=== PATIENT | female | born 1940 | race Caucasian/White ===

== ENCOUNTER 2021-06-05 16:02 | Emergency (ER) | payer MEDICARE, SELFPAY ==
--- NOTE | ~2021-06-05 | CT_ITS ---
EXAMINATION: CT abdomen pelvis wo con DATE: 06/05/2021 19:24 INDICATION: Right lower quadrant abdominal pain for one week. TECHNIQUE: Computed tomography (CT) of the abdomen and pelvis was performed without intravenous contr ast. Automated exposure control and iterative reconstruction technique were employed. Exam dose: 267 .91 mGy-cm total exam DLP. COMPARISON: None. FINDINGS: There is patchy predominantly peripheral and basilar right lower lobe infiltrate and septal soft tissue thickening. Consider pneumonia, aspiration pneumonitis. Normal heart size. No pericardial or pleural effusion. Small sliding hiatal hernia There is at least one 4 mm gallstone dependent aspect of the gallbladder. No hepatic, splenic, pancreatic, and adrenal space-occupying mass lesion. No bile duct or pancreatic duct dilatation. 4.4 cm upper pole left renal cyst. No other renal mass lesion or urinary tract calculus or hydrourete ronephrosis. The urinary bladder is unremarkable. Retroverted uterus. There is extensive arterial calcification particularly abdominal aorta, celiac, superior mesenteric a nd renal arteries. There is an endovascular stent of the distal abdominal aorta. No abdominal aortic aneurysm. No intraperitoneal or retroperitoneal or pelvic mass lesion or adenopathy or ascites. There is prominent soft tissue thickening and irregularity of the ascending colon suggesting ascendin g colon carcinoma. There is pericolic fat stranding in this area. Lymphadenopathy in the right lower quadrant, including a node measuring up to 13 x 16.7 mm, likely due to metastatic colon adenocarcinom a. Diverticulitis is considered much less likely. Further evaluation by barium enema or colonoscopy i s recommended. There are numerous diverticula of left and right colon. No bowel obstruction or intraperitoneal free air is detected. Diffuse osteopenia. There is severe degenerative disc disease and grade 1 anterolisthesis at L4-5. There is prominent deg enerative change at the apophyseal joints of the lower lumbar and lumbosacral area. Bilateral hip arthritis. IMPRESSION: Prominent irregular soft tissue thickening of the ascending colon suggesting ascending c olon carcinoma, with pericolic fat stranding and up to 13 x 16.7 mm right lower quadrant lymph nodes, suggesting local metastatic disease. Diverticulosis of left and right colon Cholelithiasis Right lower lobe peripheral and basilar infiltrate; consider pneumonia, aspiration pneumonitis 4.4 cm upper pole left renal cyst Endovascular stent of distal abdominal aorta; extensive atherosclerotic calcification of the abdomina l aorta and branches Reviewed, dictated and finalized at [facility]. Reviewed, dictated and finalized at [facility]. IMPRESSION: Prominent irregular soft tissue thickening of the ascending colon suggesting ascending colon carcinoma, with pericolic fat stranding and up to 13 x 16.7 mm right lower quadrant lymph nodes, suggesting local metastatic diseas e. Diverticulosis of left and right colon Cholelithiasis Right lower lobe peripheral and basilar infiltrate; consider pneumonia, aspirat ion pneumonitis 4.4 cm upper pole left renal cyst Endovascular stent of distal abdominal aorta; extensive atherosclerotic calcifi cation of the abdominal aorta and branches
[2021-06-05 16:08] VITALS: BP 130/54; PULSE 71; RESP 16; TEMP 36.8; O2SAT 99
[2021-06-05 16:31] LABS: Alanine Aminotransferase 16 U/L (4-35); Albumin Level 4.2 g/dL (3.5-5.1); Alkaline Phosphatase 85 U/L (38-126); Anion Gap 13 mmol/L (8-16); Aspartate Amino Transferase 20 U/L (14-36); Basophils Absolute Auto 0.1 K/mm3 (0.0-0.1); Basophils Percent Auto 0.8 % (0.2-1.2); Bilirubin,Total 0.2 mg/dL (0.2-1.3); Blood Urea Nitrogen 14 mg/dL (7-17); Calcium 9.3 mg/dL (8.4-10.2); Carbon Dioxide 24 mmol/L (22-30); Chloride 102 mmol/L (98-107); Eosinophils Absolute Auto 0.6 K/mm3 (0-0.3); Eosinophils Percent Auto 7.4 % (0-4.4); Estimated CRCL calculation 38 ml/min; Estimated Glomerular Filt Rate 53; Glucose 250 mg/dL (65-110); Hematocrit 34.1 % (37.0-47.0); Immature Granulocyte Absolute 0.01 K/mm3 (0.00-0.031); Immature Granulocyte Percent A 0.1 % (0-0.5); Lipase 333 U/L (23-300); Lymphocytes Absolute Auto 1.97 K/mm3 (0.9-3.2); Lymphocytes Percent Auto 26.2 % (18.3-44.2); Mean Corpuscular HGB Conc 32.3 g/dl (32-36); Mean Corpuscular Hemoglobin 32.7 pg (26-34); Mean Corpuscular Volume 101.5 fl (80-100); Mean Platelet Volume 9.2 fl (7.4-10.4); Monocytes Absolute Auto 0.4 K/mm3 (0.1-0.6); Monocytes Percent Auto 5.3 % (2.6-8.5); Neutrophils Absolute Auto 4.5 K/mm3 (1.3-6.7); Neutrophils Percent Auto 60.2 % (45.5-73.1); Platelet Count Result 353 k/mm3 (150-375); Potassium 4.3 mmol/L (3.4-5.0); Red Blood Count 3.36 M/mm3 (4.2-5.4); Red Cell Distribution Width 14.5 % (11.5-14.5); Sodium 139 mmol/L (137-145); White Blood Count 7.5 K/mm3 (4.5-10.0)
[2021-06-05 16:39] LABS: Add Urine Microscopic? YES; Appearance Urine Clear (Clear); Bacteria Urine Trace /hpf; Bilirubin Urine Negative (Negative); Blood Urine Negative (Negative); Color Urine Yellow (Yellow); Glucose Urine UA Negative (Negative); Ketones Urine Negative (Negative); Leukocyte Esterase Ur 1+ LEU/UL (Negative); Mucus Urine Rare /lpf; Nitrate Urine Negative (Negative); Protein Urine Negative (Negative); RBC Urine 0-2 /hpf (0-2); Specific Grav Ur 1.008 (1.001-1.035); Squamous Epithelial Cell Urine Few /hpf (Few); Urobilinogen Urine Negative mg/dL (<2.0)
[2021-06-05 19:10] VITALS: BP 137/72; PULSE 91; RESP 20; O2SAT 100
--- NOTE | 2021-06-05 20:34 | ED.ABDPAIN ---
HPI - Abdominal Pain General Chief Complaint: Abdominal Pain Stated Complaint: RLQ Abd Pain Time Seen by Provider: 06/05/21 18:56 Source: patient and family Mode of arrival: ambulatory Limitations: no limitations History of Present Illness HPI narrative: 80-year-old female History of hypertension, type 2 diabetes on Metformin Here for abdominal pain Patient complains of about a 10-day history of right sided mid abdominal pain Patient states there is discomfort there at all times but that sometimes seems to grab and be briefly worse She has not noticed anything particular which aggravates or relieves her symptoms She is having normal bowel movements, no vomiting, appetite is okay, no fevers She does not have any urinary symptoms either Related Data Home Medications Medication Instructions Recorded Confirmed aspirin 81 mg PO DAILY 06/20/20 06/27/20 atorvastatin 20 mg PO DAILY 06/20/20 06/27/20 calcitriol 0.25 mcg PO DAILY 06/20/20 06/27/20 clopidogrel 75 mg PO DAILY 06/20/20 06/27/20 cyanocobalamin (vitamin B-12) 1,000 mcg IM WEEKLY 06/20/20 06/27/20 ergocalciferol (vitamin D2) 1,250 mcg PO WEEKLY 06/20/20 06/27/20 lisinopril 10 mg PO DAILY 06/20/20 06/27/20 losartan 50 mg PO DAILY 06/20/20 06/27/20 metformin 500 mg PO DAILY 06/20/20 06/27/20 Allergies Allergy/AdvReac Type Severity Reaction Status Date / Time Penicillins Allergy Unknown Rash Verified 06/05/21 18:58 Review of Systems Review of Systems: All systems reviewed & are unremarkable except as noted in HPI and below Constitutional: Constitutional: Reports no additional constitutional complaints, Denies chills, Reports fatigue, Denies fever(s) and Denies headache(s) ENT: Denies headache(s) and Denies sore throat Cardiovascular: Cardiovascular: Denies chest pain and Denies dyspnea Respiratory: Respiratory: Denies cough and Denies dyspnea Gastrointestinal: Gastrointestinal: Reports abdominal pain, Denies bloating, Denies constipation, Denies diarrhea and Denies vomiting Genitourinary: Genitourinary: Denies hematuria, Denies urinary frequency, Denies dysuria and Reports flank pain Musculoskeletal: Musculoskeletal: Denies deformity, Denies arthralgias, Denies joint swelling and Denies numbness Integumentary/Breasts: Skin/Breast: Denies rash and Denies wounds Neurologic: Denies headache(s), Denies focal weakness and Denies numbness PMFSH Family History Family History (Updated 06/04/17 @ 15:34 by DOCTOR UNKNOWN) Mother Family history of cardiovascular disease Father Family history of lung cancer Sibling Family history of lung cancer Family history of throat cancer Family history of Hodgkin's lymphoma Social History Social History Smoking packs per day: 0.25 Smoking cigarettes per day: 5.0 Years smoked: 55 Smoking pack-years: 13.75 Smoking status: Current every day smoker Tobacco type: cigarettes Second hand tobacco smoke exposure: Yes Alcohol intake: current Gender identity (if verbalized by the patient): Female Spiritual care concerns: No Exam Const: General: cooperative, no acute distress and alert Nutritional Appearance: thin Orientation/consciousness: patient oriented x3 (alert) HENMT: Head: normal to inspection, normocephalic and atraumatic Ears: external ears normal General nose exam: no epistaxis Eyes: Conjunctivae: conjunctivae normal EOM: EOMs intact bilaterally Neck: Neck: normal visual inspection, supple and no JVD Resp: Effort & Inspection: normal respiratory effort and not labored Auscultation: clear to auscultation bilaterally and other (BS =) Cardio: Rate: regular rate Rhythm: regular rhythm GI: GI Palp: Yes Soft to palpation, Yes Tenderness to palpation present (GI), No Guarding due to palpation present (GI), Yes Palpable mass present and No Rebound tenderness present Other: There is a palpable and tender firm mass in the mid abdomen on the right side : General: Yes no CV
[2021-06-05 20:50] VITALS: BP 135/77; PULSE 99; RESP 20; O2SAT 98
== END 2021-06-05 20:59 | disposition home or self-care (01) ==
PROVIDERS: Emergency Medicine; Emergency Provider Emergency Medicine; PCP Internal Medicine
DX: K63.9 Disease of intestine, unspecified (principal); I10 Essential (primary) hypertension; E11.9 Type 2 diabetes mellitus without complications; F17.210 Nicotine dependence, cigarettes, uncomplicated; Z79.899 Other long term (current) drug therapy; Z79.82 Long term (current) use of aspirin; Z88.0 Allergy status to penicillin
CPT/HCPCS: 36415; 74176; 80053; 81001; 83690; 85025; 99284

== ENCOUNTER 2021-09-17 12:49 | Inpatient (IN) | payer MEDICARE, SELFPAY ==
[2021-09-17] VITALS (11 sets, daily range): BP systolic 111–154; BP diastolic 45–80; PULSE 87–146; RESP 15–26; TEMP 36.3; O2SAT 97–100; BMI 19.1
--- NOTE | ~2021-09-17 | CT_ITS ---
EXAMINATION: CTA chest PE protocol EXAM DATE: 09/17/2021 14:15 INDICATION: SOB, pneumonia, current cancer diagnosis. Colon cancer. TECHNIQUE: Spiral CTA of the chest (pulmonary arteries) was performed with 100 cc Omnipaque 350 intr avenous contrast injection. Images were acquired during the pulmonary arterial phase. Coronal maxi mum intensity projection 3D-reconstructions were created by the technologist on dedicated workstation . Axial, coronal and sagittal reformatted images were reviewed. The dose-length product (DLP) for t his examination was 174.70 mGy-cm. The exposure was tailored according to patient size (auto mA exp osure control), and iterative reconstruction (ASIR) was used as additional dose reduction technique. There is no prior study for comparison. FINDINGS: Right-sided portacatheter. Pulmonary arteries are well opacified and without intraluminal f illing defects. No thoracic aortic dissection. Small amount of left lower lobe reticulonodular air space disease, nonspecific pneumonitis. Some dependent atelectasis bilaterally. There is mild to mode rate emphysema and hyperinflation. Right apical scarring. There are no pleural or pericardial effusi ons. Tracheobronchial tree is patent. There is no mediastinal, hilar or axillary lymphadenopathy. There is no pneumothorax. Heart normal in size. There are dense coronary arteries, could be se jw coronary arterial sclerosis and/or coronary artery stent(s), which are difficult to distinguish due to cardiac motion on this non-gated exam. Correlate with cardiac history. 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 There is a cyst in the superior pole of the left kidney measuring 4.5 cm. The re is thoracic spondylosis without osteoblastic or osteolytic lesions identified. IMPRESSION: 1. Small amount of left lower lobe nonspecific pneumonitis. Could be acute infection. 2. Mild to moderate emphysema and hyperinflation. 3. No pulmonary emboli. Reviewed, dictated and finalized at [facility]. EL HANDLE ASSEMBLER IMPRESSION: 1. Small amount of left lower lobe nonspecific pneumonitis. Could be acute inf ection. 2. Mild to moderate emphysema and hyperinflation. 3. No pulmonary emboli.
--- NOTE | ~2021-09-17 | XR_ITS ---
XR chest 1V portable DATE: 09/24/2021 06:26 INDICATION: Congestive heart failure. Pneumonia. TECHNIQUE: Portable upright AP chest on 10/11/2021 and 0551 hours COMPARISON: 09/20/2021 PA and lateral chest FINDINGS: There is bilateral hyperinflation. Mild infiltrate or atelectasis is suggested in the lung bases. Consider atelectasis, pneumonia or aspiration pneumonitis. Normal heart size. Thoracic aortic calcification. No pleural effusion or pulmonary vascular congestio n or pneumothorax is evident. Diffuse osteopenia. Right Port-A-Cath catheter tip is situated in the upper right atrium. IMPRESSION: Mild infiltrate or atelectasis at the lung bases since 09/20/2021 Reviewed, dictated and finalized at [facility]. OLEUM PRODUCTS DISTRICT SUPERVISOR
--- NOTE | ~2021-09-17 | XR_ITS ---
EXAMINATION: XR chest 2V DATE: 09/20/2021 13:49 INDICATION: Pneumonia. TECHNIQUE: Frontal and lateral views of the chest were obtained. COMPARISON: Chest single view 09/17/2021, chest CT 09/17/2021 FINDINGS: There is mild scarring at the lung apices. There are lucencies in the upper lungs, consiste nt with emphysema. No pleural effusion or pneumothorax. The heart size is normal. There is a right in ternal jugular port with tip at superior cavoatrial junction. IMPRESSION: 1. Emphysema with mild scarring at the lung apices. Reviewed, dictated and finalized at [facility]. PRODUCTION ASSISTANT
--- NOTE | ~2021-09-17 | XR_ITS ---
EXAMINATION: XR chest 1V portable DATE: 09/17/2021 13:37 INDICATION: Cough and fatigue TECHNIQUE: frontal view of the chest was obtained. COMPARISON: Chest radiograph dated 08/06/[address] dated 11/26/2004 FINDINGS: Right internal jugular central venous port catheter with distal tip at the caudal superior vena cava. Hyperexpansion of lungs with increased lucency and architectural distortion in the upper lung zones consistent with emphysema. Minimal reticular opacities at the lung bases most likely atelectasis with differential including less likely mild pulmonary edema or pneumonia. No focal airspace opacities, p ulmonary edema, pleural effusion or pneumothorax. The cardiomediastinal silhouette is normal. Visuali zed bones and soft tissues are unremarkable. IMPRESSION: 1. Emphysema with minimal reticular opacities at the lung bases most likely atelectasis with differen tial including less likely minimal pulmonary edema or pneumonia. Reviewed, dictated and finalized at [facility]. CIATE SCHOOL PSYCHOLOGIST IMPRESSION: 1. Emphysema with minimal reticular opacities at the lung bases most likely ate lectasis with differential including less likely minimal pulmonary edema or pne umonia.
--- NOTE | 2021-09-17 12:56 | ECG_ITS ---
Measurements Intervals [place] Rate: 136 P: 74 RI: 118 QRS: 60 QRSD: 81 T: -76 QT: 263 QTc: 396 Interpretive Statements SINUS TACHYCARDIA WITH SHORT RI INTERVAL ATRIAL COUPLET, ATRIAL AND VENTRICULAR PREMATURE COMPLEXES BORDERLINE ST-T WAVE ABNORMALITY- DIFFUSE LEADS BASELINE ARTIFACT- I, II, III, AVR, AVL, AVF, V1-V6 ABNORMAL ECG Electronically Signed On 09-17-2021 16:56:22 CONTINUITY DIRECTOR by Sincere Garcia D.O.
[2021-09-17] MEDS: SODIUM CHLORIDE 0.9% IV 1,000 ML 999 ML IV CONT (13:03)
[2021-09-17 13:11] LABS: Hematocrit 28.2 % (37.0-47.0); Hemoglobin 9.2 g/dL (12.0-15.0); Mean Corpuscular HGB Conc 32.6 g/dl (32-36); Mean Corpuscular Hemoglobin 29.2 pg (26-34); Mean Corpuscular Volume 89.5 fl (80-100); Mean Platelet Volume 10.9 fl (7.4-10.4); Platelet Count Result 155 k/mm3 (150-375); Red Blood Count 3.15 M/mm3 (4.2-5.4); Red Cell Distribution Width 16.5 % (11.5-14.5)
[2021-09-17] MEDS: dilTIAZem HCl INJ 25 MG/5 ML VIAL 10 MG IV PUSH (13:23)
[2021-09-17] MEDS: dilTIAZem 100 MG/100 ML 100 MG/100 ML BAG IV CONT (13:23)
[2021-09-17 13:26] LABS: Alanine Aminotransferase 17 U/L (4-35); Albumin Level 3.4 g/dL (3.5-5.1); Alkaline Phosphatase 91 U/L (38-126); Anion Gap 11 mmol/L (8-16); Aspartate Amino Transferase 18 U/L (14-36); Bilirubin,Total 0.6 mg/dL (0.2-1.3); Blood Urea Nitrogen 32 mg/dL (7-17); Calcium 8.4 mg/dL (8.4-10.2); Carbon Dioxide 19 mmol/L (22-30); Chloride 105 mmol/L (98-107); Estimated CRCL calculation 30 ml/min; Estimated Glomerular Filt Rate 48; Glucose 205 mg/dL (65-110); Potassium 3.8 mmol/L (3.4-5.0); Sodium 135 mmol/L (137-145)
[2021-09-17 13:35] LABS: White Blood Count 1.8 K/mm3 (4.5-10.0)
[2021-09-17 13:45] LABS: Band Neutrophils Percent 8 % (0-6); Blastocytes 1 %; Lymphocytes Absolute Manual 1.18 K/mm3 (1.1-4.5); Metamyelocytes Percent 7 %; Monocytes Absolute Manual 0.12 K/mm3 (0.1-0.90); Monocytes Percent Manual 7 % (3-9); Neutrophils Absolute Manual 0.34 K/mm3 (1.7-7.2); Neutrophils Percent Manual 11 % (46-73); Total Cells Counted 100
[2021-09-17 13:46] LABS: Atypical Lymphocytes Present; Platelet Estimate Adequate (Adequate); Smudge Cells PRESENT
--- NOTE | 2021-09-17 14:08 | ED.GENADULT ---
HPI - General Adult General Chief complaint: Weakness Stated complaint: weakness Time Seen by Provider: 09/17/21 12:51 History of Present Illness HPI narrative: 81-year-old female currently undergoing treatment for colon cancer presents the emerge department complaining of increased generalized weakness and decreased p.o. intake. Family states that the patient has been on chemotherapy for her cancer that she follows up with Dr. Luna. Patient has had low treatments with her last treatment being approximately 1 week ago. Family states that the patient has been declining since the last treatment. Patient does complain of decreased p.o. intake with associated nausea. Patient also reports worsening generalized weakness. Patient has been unable to take the majority of her meds for the last week. Had a lengthy discussion with the daughter and she has a very realistic understanding of the course of her mother's cancer treatment. Related Data Home Medications Medication Instructions Recorded Confirmed aspirin 81 mg PO DAILY 06/20/20 06/27/20 atorvastatin 20 mg PO DAILY 06/20/20 06/27/20 calcitriol 0.25 mcg PO DAILY 06/20/20 06/27/20 clopidogrel 75 mg PO DAILY 06/20/20 06/27/20 cyanocobalamin (vitamin B-12) 1,000 mcg IM WEEKLY 06/20/20 06/27/20 ergocalciferol (vitamin D2) 1,250 mcg PO WEEKLY 06/20/20 06/27/20 lisinopril 10 mg PO DAILY 06/20/20 06/27/20 losartan 50 mg PO DAILY 06/20/20 06/27/20 metformin 500 mg PO DAILY 06/20/20 06/27/20 Allergies Allergy/AdvReac Type Severity Reaction Status Date / Time Penicillins Allergy Unknown Rash Verified 09/17/21 12:58 Review of Systems Review of Systems: CONSTITUTIONAL: Reports increasing generalized fatigue and decreased p.o. intake. EYES: Denies visual changes, redness, or discharge. ENT: Denies rhinorrhea, congestion, sore throat, or otalgia. CARDIOVASCULAR: Denies chest pain, palpitations, or edema. RESPIRATORY: New cough that started yesterday, denies any shortness of breath GASTROINTESTINAL: Denies abdominal pain, nausea, vomiting, or diarrhea. GENITOURINARY: Denies dysuria or hematuria. SKIN: Denies rash or itching. MUSCULOSKELETAL: Denies back pain, joint pain, or myalgia. NEUROLOGIC: Denies headache, numbness, or weakness. PSYCHIATRIC: Denies anxiety or depression. FORMERLY [facility] Family History Family History (Updated 06/04/17 @ 15:34 by DOCTOR UNKNOWN) Mother Family history of cardiovascular disease Father Family history of lung cancer Sibling Family history of lung cancer Family history of throat cancer Family history of Hodgkin's lymphoma Social History Social History Smoking packs per day: 0.25 Smoking cigarettes per day: 5.0 Years smoked: 55 Smoking pack-years: 13.75 Smoking status: Current every day smoker Tobacco type: cigarettes Second hand tobacco smoke exposure: Yes Alcohol intake: current Gender identity (if verbalized by the patient): Female Spiritual care concerns: No Exam Narrative: APPEARANCE: Well appearing, no pain in distress, well-nourished. Head normocephalic and atraumatic. EYES: PERRLA/EOMI, conjunctivae very clear. NOSE: Normal no drainage EARS:TMS clear [place], with good light reflex. THROAT: Pharynx clear, no exudate. NECK: Supple. No adenopathy, no masses. RESPIRATORY: Airway patent, respirations nonlabored. Lower lobe rhonchi CARDIOVASCULAR: Regular rate and rhythm without murmurs rubs or gallops. ABDOMINAL: Soft, nontender, nondistended, no hepatosplenomegally MUSCULOSKELETAl: Moves all extremities. Strength/ROM intact, No edema, No calf tenderness. NEURO: Alert. Cranial nerves II through XII intact. Good gait. Good coordination SKIN: Warm, dry. Normal Color PSYCHIATRIC: Normal affect/mood, normal interaction with parents. Course Course Emergency Course: Patient and family were updated on the plan for treatment. X-ray was concerning for pneumonia. Patient was started on antibiotics. CTA was ordered to rule ou
--- NOTE | 2021-09-17 15:12 | PC.NURSE ---
Patient used the bathroom to give urine sample but sample became contaminated due to patient having diarrhea. patient will attempt to give sample of allow to be straight cathed later.
[2021-09-17 16:21] LABS: Add Urine Microscopic? YES; Appearance Urine Clear (Clear); Bilirubin Urine Negative (Negative); Blood Urine Negative (Negative); Color Urine Yellow (Yellow); Glucose Urine UA Negative (Negative); Ketones Urine Trace mg/dL (Negative); Leukocyte Esterase Ur Negative LEU/UL (Negative); Mucus Urine Rare /lpf; Nitrate Urine Negative (Negative); Protein Urine 1+ mg/dL (Negative); RBC Urine 0-2 /hpf (0-2); Urobilinogen Urine Negative mg/dL (<2.0); WBC Urine 0-3 /hpf
[2021-09-17 16:28] LABS: Specific Grav Ur 1.032 (1.001-1.035)
--- NOTE | 2021-09-17 17:19 | ECG_ITS ---
Measurements Intervals [place] Rate: 84 P: 70 ID: 114 QRS: 65 QRSD: 124 T: 60 QT: 311 QTc: 369 Interpretive Statements SINUS RHYTHM WITH SHORT ID INTERVAL NONSPECIFIC ST & T-WAVE ABNORMALITY- INF/LAT LEADS BORDERLINE ECG Electronically Signed On 09-17-2021 19:48:38 THERMOSTAT MECHANIC by Sincere Garcia D.O.
--- NOTE | 2021-09-17 18:00 | PM.IMHP ---
H&P: HPI History of Present Illness Date/Time: 09/17/21 18:00 Chief Complaint: Weakness. Narrative: This is a very pleasant 81-year-old female smoker with history of diabetes, coronary artery disease, hypertension, and colon cancer who presented to the emergency department earlier today for evaluation of weakness. She is currently being treated for her colon cancer by Dr. Luna at [facility] and her last treatment was about 1 week ago. She has not been feeling well since that time with symptoms to include dry mouth, nausea, decreased oral intake, diarrhea, and cough occasionally productive of yellow sputum. On arrival to the emergency department she was afebrile and her blood pressure and pulse ox were well within normal limits. Her heart rate however was bouncing between 120 to 140s and she was found to be in atrial fibrillation with rapid ventricular response. She does not think she has a history of AFib but does report a history of ?tachycardia.? She is not symptomatic with the atrial fibrillation and she specifically denies feelings of racing heart and palpitations. She denies sick contacts and known exposure to those positive for COVID. No significant sinus congestion, rhinorrhea, otalgia, or odynophagia. She denies syncope and near-syncope. No vomiting or dysuria. Review of Systems Review of Systems: Twelve systems were reviewed and are negative except for as per HPI. [facility] Past Medical History Medical History (Updated 09/17/21 @ 21:11 by Betsey Bell PA-C) Chronic obstructive pulmonary disease Colon cancer Coronary artery disease History of [place] in 1992. Diabetic peripheral neuropathy History of Jackson's palsy Hyperlipidemia Hypertension Irritable bowel syndrome Peripheral vascular disease Tobacco dependence Type 2 diabetes mellitus Surgical History Surgical History (Updated 09/17/21 @ 20:55 by Betsey Bell PA-C) History of appendectomy History of cardiac catheterization (1992) History of lumbar surgery History of vascular surgery (2001) Infrarenal abdominal aortic angioplasty with stent placement. Family History Family History Mother Family history of cardiovascular disease Father Family history of lung cancer Sibling Family history of lung cancer Family history of throat cancer Family history of Hodgkin's lymphoma Social History Social History (Updated 09/17/21 @ 20:57 by Betsey Bell PA-C) Social History: Surrogate decision maker: Anum Santiago, daughter. Code status: Do not resuscitate. Smoking packs per day: 0.5 Smoking cigarettes per day: 10.0 Years smoked: 55 Smoking pack-years: 27.50 Smoking status: Current every day smoker Tobacco type: cigarettes Second hand tobacco smoke exposure: Yes Alcohol intake: current Substance use: never Additional living arrangements comments: The patient lives in [place]. I believe her granddaughter lives with her. Additional occupation/education comments: Retired. Meds Home Medications and Allergies Home Medications Medication Instructions Recorded Confirmed Type aspirin 81 mg PO DAILY 06/20/20 06/27/20 History atorvastatin 20 mg PO DAILY 06/20/20 06/27/20 History calcitriol 0.25 mcg PO DAILY 06/20/20 06/27/20 History clopidogrel 75 mg PO DAILY 06/20/20 06/27/20 History cyanocobalamin (vitamin B-12) 1,000 mcg IM WEEKLY 06/20/20 06/27/20 History ergocalciferol (vitamin D2) 1,250 mcg PO WEEKLY 06/20/20 06/27/20 History lisinopril 10 mg PO DAILY 06/20/20 06/27/20 History losartan 50 mg PO DAILY 06/20/20 06/27/20 History metformin 500 mg PO DAILY 06/20/20 06/27/20 History metronidazole [Flagyl] 500 mg PO Q8H #21 tablet 06/05/21 Rx Allergies Allergy/AdvReac Type Severity Reaction Status Date / Time Penicillins Allergy Unknown Rash Verified 09/17/21 12:58 Vital Signs Vital Signs - 24 hr 09/17/21 12:52 09/17/21 12:54 09/17/21 13:23 Tem[place]a
--- NOTE | 2021-09-17 19:00 | PC.NURSE ---
Assuming care of pt .
[2021-09-17 21:40] LABS: Hemoglobin A1C 8.8 % (<5.7)
[2021-09-17] MEDS: SODIUM CHLORIDE 0.9% IV 1,000 ML 100 ML IV CONT (22:35)
--- NOTE | 2021-09-17 23:54 | ADMGEN ---
This patient, Curt Mcgregor, was admitted to [facility]. Patient/family oriented to hospital policies and general routines including ID bracelet, bed and alarms, visiting hours, pain management, procedures, bathroom and other care routines, personal items, smoking policy, room service/diet, and visiting hours. Information on how to activate the Rapid Response Team has been discussed. Patient/Family are encouraged to report perceived risks to care and to ask questions if they do not understand what they are told or what they should do.
[2021-09-18] VITALS (39 sets, daily range): BP systolic 105–137; BP diastolic 50–62; PULSE 60–134; RESP 12–100; O2SAT 16–100
[2021-09-18 06:00] LABS: Hematocrit 22.9 % (37.0-47.0); Hemoglobin 7.3 g/dL (12.0-15.0); Mean Corpuscular HGB Conc 31.9 g/dl (32-36); Mean Corpuscular Hemoglobin 28.4 pg (26-34); Mean Corpuscular Volume 89.1 fl (80-100); Platelet Count Result 129 k/mm3 (150-375); Red Blood Count 2.57 M/mm3 (4.2-5.4); Red Cell Distribution Width 16.4 % (11.5-14.5)
[2021-09-18 06:33] LABS: Alanine Aminotransferase 12 U/L (4-35); Alkaline Phosphatase 75 U/L (38-126); Anion Gap 5 mmol/L (8-16); Aspartate Amino Transferase 15 U/L (14-36); Bilirubin,Total 0.4 mg/dL (0.2-1.3); Blood Urea Nitrogen 27 mg/dL (7-17); CRP 18.5 mg/dL (<1.0); Calcium 8.3 mg/dL (8.4-10.2); Carbon Dioxide 16 mmol/L (22-30); Chloride 110 mmol/L (98-107); Estimated CRCL calculation 39 ml/min; Estimated Glomerular Filt Rate 60; Glucose 181 mg/dL (65-110); Lactate Dehydrogenase 418 U/L (313-618); Magnesium 2.3 mg/dL (1.6-2.3); Potassium 2.9 mmol/L (3.4-5.0); Sodium 131 mmol/L (137-145)
[2021-09-18 08:09] LABS: Thyroid Stimulating Hormone Reflex 0.809 uIU/mL (0.465-4.68)
[2021-09-18 08:23] LABS: Glucose Point of Care 177 mg/dl (65-105)
[2021-09-18] MEDS: SODIUM CHLORIDE 0.9% IV 1,000 ML 100 ML IV CONT ×2 (10:01→23:17)
--- NOTE | 2021-09-18 11:31 | PC.NURSE ---
Assumed care of pt. Pt resting in NAD currently, provided water upon request. Denies any other needs at this time. A&Ox4. Waiting admission. Call light in reach.
--- NOTE | 2021-09-18 11:41 | PM.IMPN ---
Progress Note: A&P Assessment and Plan (1) Atrial fibrillation with rapid ventricular response: Code(s): I48.91 - Unspecified atrial fibrillation Status: Acute Assessment and Plan: Patient was started on a Cardizem drip but ultimately converted to a sinus rhythm. At this time will check a TSH and an echocardiogram in a.m. and decide at that time whether not anticoagulation would be appropriate. (2) Abnormal finding on lung imaging: Code(s): R91.8 - Other nonspecific abnormal finding of lung field Status: Acute Assessment and Plan: CT of the chest showed a small amount of left lower lobe nonspecific pneumonitis. Given severe neutropenia she has been started on cefepime. She has also been swabbed for COVID and will remain in isolation pending SARS-CoV-2 by PCR. (3) Neutropenia: Code(s): D70.9 - Neutropenia, unspecified Status: Acute Assessment and Plan: Patient has severe neutropenia with an absolute neutrophil count of 342. Patient reportedly received Neupogen as an outpatient though it may be prudent to get in touch with her oncologist tomorrow to see if another dose would be appropriate. Initiate reverse isolation. Continue cefepime antibiotics pending cultures. (4) Dehydration: Code(s): E86.0 - Dehydration Status: Acute Assessment and Plan: She has been judiciously hydrated. Monitor volume status closely. (5) Type 2 diabetes mellitus: Code(s): E11.9 - Type 2 diabetes mellitus without complications Status: Acute Assessment and Plan: Metformin on hold as she received IV contrast. Initiate sliding scale insulin, Accu-Cheks, and hypoglycemic protocol. Check A1c. (6) Hypertension: Code(s): I10 - Essential (primary) hypertension Status: Acute Assessment and Plan: Blood pressures were reviewed and they were a bit higher earlier on but have since stabilized. Antihypertensives will be reviewed and resumed as appropriate. Continue to monitor blood pressures daily. (7) Chronic obstructive pulmonary disease: Code(s): J44.9 - Chronic obstructive pulmonary disease, unspecified Status: Acute Assessment and Plan: No acute exacerbation. (8) Tobacco dependence: Code(s): F17.200 - Nicotine dependence, unspecified, uncomplicated Status: Acute Assessment and Plan: She declines the need for nicotine patch. (9) Colon cancer: Code(s): C18.9 - Malignant neoplasm of colon, unspecified Status: Acute Assessment and Plan: Currently undergoing chemotherapy at [facility] Will replace and monitor potassium and electrolytes . Monitor culture reports. Subjective Date/time seen: 09/18/21 11:41 Patient was seen during the morning rounds today. Patient still feels weak and tired. No shortness of breath or chest pain. Abdominal pain, no nausea, vomiting. Mood stable. Review of Systems Review of Systems: All systems reviewed & are unremarkable except as noted in HPI and below (the history and physical examination.) Exam Narrative: General: Thin, frail elderly female supine in bed. Mildly ill in appearance. Weight: 52.3 kg. BMI: 19.8. HEENT: PERRL, EOMI. Sclerae anicteric. Dry mucous membranes. Oropharynx is clear. Neck: Supple. No adenopathy or JVD. Respiratory: Respirations are nonlabored and she is speaking in full sentences. She has an occasional wet cough. Lung sounds are diminished with faint crackles at the left base. Cardiovascular: Irregularly irregular rate and rhythm. Soft murmur at the upper sternal border. Gastrointestinal: Abdomen is soft, nontender, and nondistended with positive bowel sounds. Skin: Warm and dry. No rash or lesions on limited exam. Extremities: No cyanosis, clubbing, or edema. Radial and pedal pulses intact. Neurological: Alert. Cranial nerves 2-12 are grossly intact. No gross focal deficits to casual conversation. P
[2021-09-18 12:03] LABS: Glucose Point of Care 190 mg/dl (65-105)
[2021-09-18 17:38] LABS: Glucose Point of Care 174 mg/dl (65-105)
[2021-09-18 18:43] LABS: SARS-CoV-2 RNA PCR Negative (Negative)
--- NOTE | 2021-09-18 19:55 | PC.NURSE ---
RN to bedside to check on pt. Pt finished eating, did not eat much. States she is not hungry right now. Pt repositioned. Updated that daughter will be coming to visit shortly. Pt denies any other requests at this time. Call light in reach.
--- NOTE | 2021-09-18 23:21 | PC.NURSE ---
Assumed care of pt at this time. Pt resting on stretcher, no request.
[2021-09-18 23:24] LABS: Glucose Point of Care 182 mg/dl (65-105)
[2021-09-19] VITALS (12 sets, daily range): BP systolic 107–140; BP diastolic 44–91; PULSE 51–99; RESP 14–19; TEMP 35.8–36.6; O2SAT 93–100; BMI 16.5
--- NOTE | 2021-09-19 02:22 | PC.NURSE ---
Attempted to call report to IMU at this time. Was informed RN was transferring a critical pt and will call back when available
[2021-09-19 05:15] LABS: Hematocrit 22.7 % (37.0-47.0); Hemoglobin 7.3 g/dL (12.0-15.0); Mean Corpuscular HGB Conc 32.2 g/dl (32-36); Mean Corpuscular Volume 90.1 fl (80-100); Mean Platelet Volume 11.3 fl (7.4-10.4); Platelet Count Result 125 k/mm3 (150-375); Red Blood Count 2.52 M/mm3 (4.2-5.4); Red Cell Distribution Width 16.6 % (11.5-14.5)
[2021-09-19 05:38] LABS: Alanine Aminotransferase 10 U/L (4-35); Albumin Level 2.5 g/dL (3.5-5.1); Alkaline Phosphatase 63 U/L (38-126); Anion Gap 8 mmol/L (8-16); Aspartate Amino Transferase 15 U/L (14-36); Bilirubin,Total 0.3 mg/dL (0.2-1.3); Blood Urea Nitrogen 24 mg/dL (7-17); Calcium 7.5 mg/dL (8.4-10.2); Carbon Dioxide 15 mmol/L (22-30); Chloride 112 mmol/L (98-107); Estimated CRCL calculation 38 ml/min; Estimated Glomerular Filt Rate > 60; Glucose 156 mg/dL (65-110); Potassium 2.1 mmol/L (3.4-5.0); Sodium 135 mmol/L (137-145)
[2021-09-19 05:41] LABS: White Blood Count 1.9 K/mm3 (4.5-10.0)
[2021-09-19 05:46] LABS: Atypical Lymphocytes Present; Band Neutrophils Percent 4 % (0-6); Lymphocytes Absolute Manual 0.89 K/mm3 (1.1-4.5); Monocytes Absolute Manual 0.13 K/mm3 (0.1-0.90); Monocytes Percent Manual 7 % (3-9); Neutrophils Absolute Manual 0.87 K/mm3 (1.7-7.2); Neutrophils Percent Manual 42 % (46-73); Platelet Estimate Decreased (Adequate); Total Cells Counted 100
[2021-09-19 05:47] LABS: Anisocytosis 1+ (NORMAL); Ovalocytes 2+ (NORMAL); Poikilocytosis 2+ (NORMAL)
--- NOTE | 2021-09-19 06:00 | ECG_ITS ---
Measurements Intervals [place] Rate: 83 P: 84 MT: 118 QRS: 73 QRSD: 102 T: 53 QT: 377 QTc: 444 Interpretive Statements SINUS RHYTHM WITH SHORT MT INTERVAL ATRIAL COUPLET AND ATRIAL PREMATURE COMPLEXES BORDERLINE ST ABNORMALITY- ANTEROLAT/INF LEADS ABNORMAL ECG Electronically Signed On 09-19-2021 11:03:16 [employer]UE[employer]MER by Sincere Garcia D.O.
[2021-09-19] MEDS: POTASSIUM CHLORIDE INJ 40 MEQ in SODIUM CHLORIDE 0.9% IV 500 ML 130 MEQ IVPB (06:59)
[2021-09-19] MEDS: POTASSIUM CHLORIDE 20 MEQ PACKET (FOR LIQUID) 40 MEQ PO ×2 (06:59→10:20)
--- NOTE | 2021-09-19 08:42 | WPDCDIQUERY2 ---
CDI Query Clarification Request -EDP documented pneumonia -CXR impression: Emphysema with minimal reticular opacities at the lung bases most likely atelectasis with differential including less likely minimal pulmonary edema or pneumonia. -CTA chest impression: Small amount of left lower lobe nonspecific pneumonitis. Could be acute infection. -Abnormal finding on lung imaging on problem list -Pt is on Cefepime q 12hrs. Please clarify if pneumonia has been ruled in or ruled out. <Florina Marin RN - Last Filed: 09/19/21 08:47> Clarified Diagnosis (1) Pneumonia: Qualifiers: Laterality: left Lung location: lower lobe of lung Pneumonia type: due to unspecified organism Qualified Code(s): J18.9 - Pneumonia, unspecified organism <Florina Marin RN - Last Filed: 09/19/21 08:47> Code(s): J18.9 - Pneumonia, unspecified organism <Florina Marin RN - Last Filed: 09/19/21 08:47> Status: Acute <Florina Marin RN - Last Filed: 09/19/21 08:47> Assessment and Plan: Ruled in <Scott Hernandez MD - Last Filed: 09/19/21 11:21>
[2021-09-19 08:59] LABS: Glucose Point of Care 152 mg/dl (65-105)
--- NOTE | 2021-09-19 11:21 | PM.IMPN ---
Progress Note: A&P Assessment and Plan (1) Pneumonia: Qualifiers: Laterality: left Lung location: lower lobe of lung Pneumonia type: due to unspecified organism Qualified Code(s): J18.9 - Pneumonia, unspecified organism Code(s): J18.9 - Pneumonia, unspecified organism Status: Acute Assessment and Plan: Will continue with antibiotics and repeat chest x-ray. (2) Neutropenia: Code(s): D70.9 - Neutropenia, unspecified Status: Acute Assessment and Plan: Consult Heme-Onc and monitor closely (3) Hypertension: Code(s): I10 - Essential (primary) hypertension Status: Acute Assessment and Plan: Stable on current medication (4) Type 2 diabetes mellitus: Code(s): E11.9 - Type 2 diabetes mellitus without complications Status: Acute Assessment and Plan: Restart home meds and follow sliding scale insulin (5) Atrial fibrillation with rapid ventricular response: Code(s): I48.91 - Unspecified atrial fibrillation Status: Acute Assessment and Plan: Normal sinus rhythm at present will monitor closely. Cannot anticoagulate because of thrombocytopenia and severe anemia. (6) Anemia: Code(s): D64.9 - Anemia, unspecified Status: Acute Assessment and Plan: Monitor closely Heme-Onc consult. (7) Hypokalemia: Code(s): E87.6 - Hypokalemia Status: Acute Assessment and Plan: Replace and monitor closely Subjective Date/time seen: 09/19/21 11:21 Patient was seen during the morning rounds today. Feel weak and tired. Mild shortness of breath no chest pain. No abdominal pain, nausea, no vomiting. Mood stable Review of Systems Review of Systems: All systems reviewed & are unremarkable except as noted in HPI and below (the history and physical examination.) Exam Narrative: General: Thin, frail elderly female supine in bed. Mildly ill in appearance. Weight: 52.3 kg. BMI: 19.8. HEENT: PERRL, EOMI. Sclerae anicteric. Dry mucous membranes. Oropharynx is clear. Neck: Supple. No adenopathy or JVD. Respiratory: Respirations are nonlabored and she is speaking in full sentences. She has an occasional wet cough. Lung sounds are diminished with faint crackles at the left base. Cardiovascular: Irregularly irregular rate and rhythm. Soft murmur at the upper sternal border. Gastrointestinal: Abdomen is soft, nontender, and nondistended with positive bowel sounds. Skin: Warm and dry. No rash or lesions on limited exam. Extremities: No cyanosis, clubbing, or edema. Radial and pedal pulses intact. Neurological: Alert. Cranial nerves 2-12 are grossly intact. No gross focal deficits to casual conversation. Psychiatric: Pleasant and cooperative with normal mood and affect. Const: General: cooperative and no acute distress Orientation/consciousness: oriented to person, oriented to place, oriented to time and patient oriented x3 HENMT: Head: normal to inspection Ears: hearing grossly normal bilaterally and external ears normal General nose exam: Normal external nose present Face and sinus: normal facial exam Mouth: Yes Normal oral and palatal mucosa present Eyes: General: appearance normal, both eyes and all related structures Neck: Neck: normal visual inspection and full ROM Chest: Chest palpation & inspection: normal inspection of the chest and normal palpation of entire chest wall Resp: Effort & Inspection: normal respiratory effort Auscultation: clear to auscultation bilaterally Cardio: Jugular venous distension: no JVD Palpation: normal PMI Rate: regular rate Heart sounds: S1 normal heart sound present and S2 normal heart sound present GI: Inspection: normal to inspection GI Palp: No abdominal tenderness Neuro: General: oriented to person, oriented to place, oriented to time and patient oriented x3 Cranial nerves: Yes CN's II-XII intact bilaterally Speech: normal speech Gait exam (Neuro): Normal ga
[2021-09-19] MEDS: MAGNESIUM OXIDE 400 MG TABLET PO (11:34)
[2021-09-19 11:44] LABS: Glucose Point of Care 161 mg/dl (65-105)
[2021-09-19] MEDS: oxyCODONE/ACETAMINOPHEN (*CRX) 5-325 MG TABLET 1 TABLET PO (14:05)
--- NOTE | 2021-09-19 15:05 | PDONCCN ---
HPI - Date of Consult Date/Time: 09/19/21 15:05 Requesting Physician: Guillermo Winston MD Primary Care Provider: Axel Singleton, - Consult Narrative Narrative: Curt Mcgregor is a 81 year old female with metastatic colorectal cancer receiving chemotherapy at [facility] - last cycle roughly 10 days ago the patient could not provide details-she has neutropenia which is improving consistent with post chemotherapy myelosupression patient c/o general weakness Review of Systems - Review of Systems All systems reviewed & are unremarkable except as noted in HPI and bel - Constitutional Reports anorexia, Reports fatigue - Respiratory Reports cough, Reports dyspnea PMFSH Medical History: Medical History (Last Updated 09/17/21 @ 21:11 by Betsey Bell PA-C) Chronic obstructive pulmonary disease Colon cancer Coronary artery disease History of NC in 1992. Diabetic peripheral neuropathy History of Jackson's palsy Hyperlipidemia Hypertension Irritable bowel syndrome Peripheral vascular disease Tobacco dependence Type 2 diabetes mellitus Surgical History: Surgical History (Last Updated 09/17/21 @ 20:55 by Betsey Bell PA-C) History of appendectomy History of cardiac catheterization Onset Date: 1992 History of lumbar surgery History of vascular surgery Onset Date: 2001 Infrarenal abdominal aortic angioplasty with stent placement. Family History: Family History (Last Reviewed 09/17/21 @ 23:51 by Denise Emanuel RN) Mother Family history of cardiovascular disease Father Family history of lung cancer Sibling Family history of lung cancer Family history of throat cancer Family history of Hodgkin's lymphoma - Social History Social History: Social History (Last Updated 09/17/21 @ 20:57 by Betsey Bell PA-C) Gender Identity: Gender identity (if verbalized by the patient): Female Alcohol Use: Alcohol intake: current Drinks per week: 1 Substance Use: Substance use: never Substance use type: does not use Others: Spiritual care concerns: No Smoking Status: Smoking status: Current some day smoker Tobacco type: cigarettes Second hand tobacco smoke exposure: Yes Smoking Pack-years: Smoking packs per day: 0.5 Smoking cigarettes per day: 2 Years smoked: 55 Smoking pack-years: 27.50 Meds Home Medications Medication Instructions Recorded Confirmed Type atorvastatin 20 mg PO DAILY 06/20/20 09/19/21 History calcitriol 0.25 mcg PO DAILY 06/20/20 09/19/21 History clopidogrel 75 mg PO DAILY 06/20/20 09/19/21 History cyanocobalamin (vitamin B-12) 1,000 mcg IM WEEKLY 06/20/20 09/19/21 History ergocalciferol (vitamin D2) 1,250 mcg PO WEEKLY 06/20/20 09/19/21 History losartan 50 mg PO DAILY 06/20/20 09/19/21 History metformin 1,000 mg PO BID 06/20/20 09/19/21 History allopurinol 100 mg PO BID 09/19/21 09/19/21 History mirtazapine 15 mg PO DAILY 09/19/21 09/19/21 History ondansetron HCl 8 mg PO Q6H 09/19/21 09/19/21 History oxycodone-acetaminophen 5 tablet PO BID PRN 09/19/21 09/19/21 History trazodone 50 mg PO QPM 09/19/21 09/19/21 History Allergies Allergy/AdvReac Type Severity Reaction Status Date / Time Penicillins Allergy Unknown Rash Verified 09/17/21 12:58 Results - Labs CBC & Chem 7: 09/19/21 04:43 09/19/21 04:43 Labs: Short CBC 09/19/21 Range/Units 04:43 WBC 1.9 L (4.5-10.0) K/mm3 Hgb 7.3 L (12.0-15.0) g/dL Hct 22.7 L (37.0-47.0) % Plt Count 125 L (150-375) k/mm3 BMP 09/19/21 04:43 Sodium 135 L Potassium 2.1 L* Chloride 112 H Carbon Dioxide 15 L BUN 24 H Creatinine 0.80 Glucose 156 H Calcium 7.5 L Cardiac Enzymes 09/19/21 Range/Units 04:43 Troponin I 0.020 (0.000-0.034) ng/mL Liver Function 09/19/21 Range/Units 04:43 Total Bilirubin 0.3 (0.2-1.3) mg/dL AST 15 (14-36) U/L ALT 10 (4-35
[2021-09-19 16:15] LABS: Potassium 4.9 mmol/L (3.4-5.0)
[2021-09-19] MEDS: traZODone HCL 50 MG TABLET PO (17:03)
[2021-09-19] MEDS: allopurinoL 100 MG TABLET PO (17:03)
[2021-09-19] MEDS: metFORMIN HCL 500 MG TABLET 1000 MG PO (17:03)
[2021-09-19] MEDS: SODIUM CHLORIDE 0.9% IV 1,000 ML 100 ML IV CONT (17:03)
[2021-09-19 17:14] LABS: Glucose Point of Care 160 mg/dl (65-105)
--- NOTE | 2021-09-19 17:20 | PC.NURSE ---
This patient, Curt Mcgregor, was transferred to [facility] on 09/19/21 at 1720. Personal belongings sent with patient. Report given to Jailyn DOZIER. Appropriate documentation sent with patient.
--- NOTE | 2021-09-19 17:20 | PC.NURSE ---
Patient transferred to [address] [place] [address] from IMU at 1637 via bed.
--- NOTE | 2021-09-19 21:17 | ECHO_ITS ---
Patient Info Name: Curt Mcgregor Age: 81 years : 1940 Gender: Female Ht: 64 in Wt: 115 lbs BSA: 1.53 m2 HR: 78 bpm BP: 125 / 51 mmHg Heart Rhythm: Atrial Fibrillation Technical Quality: Fair Exam Date: 09/19/2021 2:13 PM Exam Location: [facility] Pulmonary Patient Status: Inpatient Admit Date: 09/18/2021 Staff Ordering Physician: Betsey Bell PA-C Strap Machine Operator: Shilpa Bradford RDCS Attending Provider: Guillermo Winston MD Referring Physician: Arabella VICTORIA; Exam Type: CA echo doppler color flow Study Info Indications - Afib, CAD, HTN Complete two-dimensional, color flow and Doppler transthoracic echocardiogram is performed. Summary 1. Complete two-dimensional, color flow and Doppler transthoracic echocardiogram is performed. 2. Left ventricular chamber dimension is mildly enlarged. 3. Left ventricular systolic function is mildly reduced, estimated at 50-55%. 4. There is no increased left ventricular wall thickness. 5. The left ventricular diastolic function is abnormal. 6. The apical cap, basal inferior wall, basal inferoseptal, basal inferolateral wall, and mid inferolateral wall are akinetic. 7. The apical inferior wall, and mid inferior wall are hypokinetic. 8. Cannot exclude apical thrombus. 9. Left atrial chamber dimension is mildly enlarged. 10. There is mild mitral valve regurgitation. 11. There is mild tricuspid valve regurgitation. 12. Mild pulmonary hypertension, estimated pulmonary arterial systolic pressure is 42 mmHg. Left Ventricle Left ventricular chamber dimension is mildly enlarged. Left ventricular systolic function is mildly reduced, estimated at 50-55%. There is no increased left ventricular wall thickness. The left ventricular diastolic function is abnormal. The apical cap, basal inferior wall, basal inferoseptal, basal inferolateral wall, and mid inferolateral wall are akinetic. The apical inferior wall, and mid inferior wall are hypokinetic. All other ramirez appear normal. Cannot exclude apical thrombus. Right Ventricle Right ventricular chamber dimension is normal. Right ventricular systolic function is normal. Left Atria Left atrial chamber dimension is mildly enlarged. Right Atria Right atrial chamber dimension is normal. Atrial Septum Intact interatrial septum visualized by color flow imaging. Aortic Valve The aortic valve is trileaflet. There is mild aortic valve sclerosis. There is no aortic valve stenosis. There is trace aortic valve regurgitation. Pulmonic Valve The pulmonic valve is normal. There is no pulmonic valve stenosis. There is trace pulmonic regurgitation. Mitral Valve The mitral valve has normal leaflets. There is no mitral valve stenosis. There is mild mitral valve regurgitation. Tricuspid Valve The tricuspid valve leaflets are normal. There is no significant tricuspid valve stenosis. There is mild tricuspid valve regurgitation. Mild pulmonary hypertension, estimated pulmonary arterial systolic pressure is 42 mmHg. Pericardium/Pleural The pericardium appears normal. There is no pericardial effusion. Inferior Vena Cava Normal inferior vena cava with >50% collapse upon inspiration consistent with normal right atrial pressure, 10 mmHg. Aorta The aortic root size at the sinus of Valsalva is normal. Left Ventricular Outflow Tract Name Va
[2021-09-19 21:58] LABS: Glucose Point of Care 171 mg/dl (65-105)
[2021-09-19] MEDS: DIPHENOXYLATE/ATROPINE (*CRX) 2.5 MG TABLET 2 TABLET PO (23:20)
[2021-09-20 02:44] VITALS: BMI 16.5
[2021-09-20 05:57] VITALS: BP 117/47; PULSE 128; RESP 18; TEMP 36.1; O2SAT 100
[2021-09-20] MEDS: SODIUM CHLORIDE 0.9% IV 1,000 ML 100 ML IV CONT (06:27)
[2021-09-20 08:00] VITALS: O2SAT 100
[2021-09-20 08:06] LABS: Glucose Point of Care 158 mg/dl (65-105)
[2021-09-20] MEDS: MAGNESIUM OXIDE 400 MG TABLET PO (08:34)
[2021-09-20] MEDS: ATORVASTATIN 20 MG TABLET PO (08:34)
[2021-09-20] MEDS: metFORMIN HCL 500 MG TABLET 1000 MG PO ×2 (08:34→17:02)
[2021-09-20] MEDS: CLOPIDOGREL BISULFATE 75 MG TABLET PO (08:34)
[2021-09-20] MEDS: LOSARTAN POTASSIUM 50 MG TABLET PO (08:34)
[2021-09-20] MEDS: calcitrioL 0.25 MCG CAPSULE PO (08:35)
[2021-09-20] MEDS: allopurinoL 100 MG TABLET PO ×2 (08:35→17:03)
[2021-09-20] MEDS: POTASSIUM CHLORIDE 20 MEQ TABLET.ER 40 MEQ PO (08:35)
[2021-09-20 08:43] LABS: Hematocrit 23.2 % (37.0-47.0); Hemoglobin 7.1 g/dL (12.0-15.0); Mean Corpuscular HGB Conc 30.6 g/dl (32-36); Mean Corpuscular Volume 91.3 fl (80-100); Mean Platelet Volume 10.9 fl (7.4-10.4); Platelet Count Result 144 k/mm3 (150-375); Red Blood Count 2.54 M/mm3 (4.2-5.4); Red Cell Distribution Width 17.3 % (11.5-14.5); White Blood Count 2.3 K/mm3 (4.5-10.0)
[2021-09-20 09:02] LABS: Alanine Aminotransferase 10 U/L (4-35); Albumin Level 2.5 g/dL (3.5-5.1); Alkaline Phosphatase 56 U/L (38-126); Anion Gap 7 mmol/L (8-16); Aspartate Amino Transferase 15 U/L (14-36); Bilirubin,Total 0.2 mg/dL (0.2-1.3); Blood Urea Nitrogen 19 mg/dL (7-17); Calcium 7.7 mg/dL (8.4-10.2); Carbon Dioxide 12 mmol/L (22-30); Chloride 121 mmol/L (98-107); Estimated CRCL calculation 43 ml/min; Estimated Glomerular Filt Rate > 60; Glucose 147 mg/dL (65-110); Potassium 2.7 mmol/L (3.4-5.0); Sodium 140 mmol/L (137-145)
--- NOTE | 2021-09-20 09:39 | PM.IMPN ---
Progress Note: A&P Assessment and Plan (1) Pneumonia: Qualifiers: Laterality: left Lung location: lower lobe of lung Pneumonia type: due to unspecified organism Qualified Code(s): J18.9 - Pneumonia, unspecified organism Code(s): J18.9 - Pneumonia, unspecified organism Status: Acute Assessment and Plan: Will continue with antibiotics and repeat chest x-ray. (2) Neutropenia: Code(s): D70.9 - Neutropenia, unspecified Status: Acute Assessment and Plan: Consult Heme-Onc and monitor closely (3) Hypertension: Code(s): I10 - Essential (primary) hypertension Status: Acute Assessment and Plan: Stable on current medication (4) Type 2 diabetes mellitus: Code(s): E11.9 - Type 2 diabetes mellitus without complications Status: Acute Assessment and Plan: Restart home meds and follow sliding scale insulin (5) Atrial fibrillation with rapid ventricular response: Code(s): I48.91 - Unspecified atrial fibrillation Status: Acute Assessment and Plan: Normal sinus rhythm at present will monitor closely. Cannot anticoagulate because of thrombocytopenia and severe anemia. (6) Anemia: Code(s): D64.9 - Anemia, unspecified Status: Acute Assessment and Plan: Monitor closely Heme-Onc consult. (7) Hypokalemia: Code(s): E87.6 - Hypokalemia Status: Acute Assessment and Plan: Replace and monitor closely Additional Plan 09/20/2001 Heme-Onc consult noted. Will continue to monitor CBC. Repeat chest x-ray. Replace and monitor potassium. Increase activity as tolerated. Possible discharge next few days. Subjective Date/time seen: 09/20/21 09:39 Patient was seen during the morning rounds today. Decreased shortness of breath, no chest pain. No abdominal pain, nausea mood stable. Review of Systems Review of Systems: All systems reviewed & are unremarkable except as noted in HPI and below (the history and physical examination.) Exam Narrative: General: Thin, frail elderly female supine in bed. Mildly ill in appearance. Weight: 52.3 kg. BMI: 19.8. HEENT: PERRL, EOMI. Sclerae anicteric. Dry mucous membranes. Oropharynx is clear. Neck: Supple. No adenopathy or JVD. Respiratory: Respirations are nonlabored and she is speaking in full sentences. She has an occasional wet cough. Lung sounds are diminished with faint crackles at the left base. Cardiovascular: Irregularly irregular rate and rhythm. Soft murmur at the upper sternal border. Gastrointestinal: Abdomen is soft, nontender, and nondistended with positive bowel sounds. Skin: Warm and dry. No rash or lesions on limited exam. Extremities: No cyanosis, clubbing, or edema. Radial and pedal pulses intact. Neurological: Alert. Cranial nerves 2-12 are grossly intact. No gross focal deficits to casual conversation. Psychiatric: Pleasant and cooperative with normal mood and affect. Const: General: cooperative and no acute distress Orientation/consciousness: oriented to person, oriented to place, oriented to time and patient oriented x3 HENMT: Head: normal to inspection Ears: hearing grossly normal bilaterally and external ears normal General nose exam: Normal external nose present Face and sinus: normal facial exam Mouth: Yes Normal oral and palatal mucosa present Eyes: General: appearance normal, both eyes and all related structures Neck: Neck: normal visual inspection and full ROM Chest: Chest palpation & inspection: normal inspection of the chest and normal palpation of entire chest wall Resp: Effort & Inspection: normal respiratory effort Auscultation: clear to auscultation bilaterally Cardio: Jugular venous distension: no JVD Palpation: normal PMI Rate: regular rate Heart sounds: S1 normal heart sound present and S2 normal heart sound present GI: Inspection: normal to inspection Neuro: General: oriented to person, oriented to place, pola
[2021-09-20 11:45] LABS: Glucose Point of Care 174 mg/dl (65-105)
[2021-09-20] MEDS: POTASSIUM CHLORIDE INJ 40 MEQ in SODIUM CHLORIDE 0.9% IV 500 ML 130 MEQ IVPB (12:15)
[2021-09-20 12:25] LABS: Band Neutrophils Percent 9 % (0-6); Lymphocytes Absolute Manual 1.08 K/mm3 (1.1-4.5); Metamyelocytes Percent 4 %; Myelocytes Percent 2 %; Neutrophils Absolute Manual 1.08 K/mm3 (1.7-7.2); Neutrophils Percent Manual 38 % (46-73); Nucleated Red Blood Cells 4 %; Total Cells Counted 100
[2021-09-20 12:29] LABS: Anisocytosis 1+ (NORMAL); Platelet Estimate Adequate (Adequate); Poikilocytosis 1+ (NORMAL)
[2021-09-20 14:00] VITALS: BP 110/67; PULSE 75; RESP 18; TEMP 36.3; O2SAT 100
--- NOTE | 2021-09-20 14:02 | PCPTNOTE ---
Patient refused treatment this session. Patient states she is going home today and will have help from family all day and night. Patient declines needs for therapy services.
[2021-09-20] MEDS: ONDANSETRON HCL ODT 4 MG TABLET 8 MG PO ×2 (14:40→21:11)
[2021-09-20 16:49] LABS: Glucose Point of Care 177 mg/dl (65-105)
[2021-09-20] MEDS: traZODone HCL 50 MG TABLET PO (18:42)
[2021-09-20] MEDS: LOPERAMIDE HCL 2 MG CAPSULE PO (21:15)
[2021-09-20 21:45] LABS: Potassium 2.6 mmol/L (3.4-5.0)
[2021-09-20 22:00] VITALS: BP 142/66; PULSE 90; RESP 18; TEMP 36.6; O2SAT 100
[2021-09-20 23:05] LABS: Glucose Point of Care 198 mg/dl (65-105)
[2021-09-20] MEDS: POTASSIUM CHLORIDE 20 MEQ PACKET (FOR LIQUID) 40 MEQ PO (23:36)
[2021-09-21] MEDS: POTASSIUM CHLORIDE 20 MEQ PACKET (FOR LIQUID) 40 MEQ PO (01:57)
[2021-09-21] MEDS: SODIUM CHLORIDE 0.9% IV 1,000 ML 100 ML IV CONT ×2 (02:05→12:26)
[2021-09-21] MEDS: LOPERAMIDE HCL 2 MG CAPSULE PO ×2 (05:17→20:09)
[2021-09-21] MEDS: ONDANSETRON HCL ODT 4 MG TABLET 8 MG PO ×3 (05:17→20:09)
[2021-09-21 06:00] VITALS: BP 141/69; PULSE 100; RESP 18; TEMP 36.3; O2SAT 100
[2021-09-21 06:51] LABS: Hematocrit 26.6 % (37.0-47.0); Hemoglobin 8.4 g/dL (12.0-15.0); Mean Corpuscular HGB Conc 31.6 g/dl (32-36); Mean Corpuscular Volume 91.7 fl (80-100); Mean Platelet Volume 11.2 fl (7.4-10.4); Platelet Count Result 190 k/mm3 (150-375); Red Cell Distribution Width 18.2 % (11.5-14.5); White Blood Count 3.8 K/mm3 (4.5-10.0)
[2021-09-21 07:07] LABS: Alanine Aminotransferase 13 U/L (4-35); Albumin Level 2.7 g/dL (3.5-5.1); Alkaline Phosphatase 67 U/L (38-126); Anion Gap 6 mmol/L (8-16); Aspartate Amino Transferase 16 U/L (14-36); Bilirubin,Total 0.4 mg/dL (0.2-1.3); Blood Urea Nitrogen 17 mg/dL (7-17); Calcium 8.1 mg/dL (8.4-10.2); Carbon Dioxide 14 mmol/L (22-30); Chloride 127 mmol/L (98-107); Estimated CRCL calculation 43 ml/min; Estimated Glomerular Filt Rate > 60; Glucose 203 mg/dL (65-110); Magnesium 2.6 mg/dL (1.6-2.3); Sodium 147 mmol/L (137-145)
[2021-09-21 08:04] LABS: Glucose Point of Care 208 mg/dl (65-105)
[2021-09-21] MEDS: POTASSIUM CHLORIDE 20 MEQ TABLET.ER 40 MEQ PO (08:36)
[2021-09-21] MEDS: calcitrioL 0.25 MCG CAPSULE PO (08:36)
[2021-09-21] MEDS: allopurinoL 100 MG TABLET PO ×2 (08:37→17:10)
[2021-09-21] MEDS: metFORMIN HCL 500 MG TABLET 1000 MG PO ×2 (08:37→17:10)
[2021-09-21] MEDS: CLOPIDOGREL BISULFATE 75 MG TABLET PO (08:37)
[2021-09-21] MEDS: MAGNESIUM OXIDE 400 MG TABLET PO (08:37)
[2021-09-21] MEDS: ATORVASTATIN 20 MG TABLET PO (08:37)
[2021-09-21] MEDS: LOSARTAN POTASSIUM 50 MG TABLET PO (08:37)
[2021-09-21] MEDS: MIRTAZAPINE SOLTAB 15 MG TAB.DISPER PO (08:37)
[2021-09-21 09:15] LABS: Band Neutrophils Percent 14 % (0-6); Lymphocytes Absolute Manual 0.95 K/mm3 (1.1-4.5); Metamyelocytes Percent 4 %; Monocytes Absolute Manual 0.19 K/mm3 (0.1-0.90); Monocytes Percent Manual 5 % (3-9); Myelocytes Percent 1 %; Neutrophils Absolute Manual 2.47 K/mm3 (1.7-7.2); Neutrophils Percent Manual 51 % (46-73); Nucleated Red Blood Cells 5 %; Total Cells Counted 100
[2021-09-21 09:16] LABS: Anisocytosis 1+ (NORMAL); Platelet Estimate Adequate (Adequate); Poikilocytosis 1+ (NORMAL)
--- NOTE | 2021-09-21 09:38 | PCPTNOTE ---
Patient refused treatment this session. Patient states I just want to go home to be with my family. I am ready to and I just want to be with my family while I can still speak and enjoy their company. I have stage four colon cancer and I know I will not live forever so I want to go home and eventually go on hospice when it is time. PT will request discharge orders per patient request.
--- NOTE | 2021-09-21 11:56 | PM.IMPN ---
Progress Note: A&P Assessment and Plan (1) Pneumonia: Qualifiers: Laterality: left Lung location: lower lobe of lung Pneumonia type: due to unspecified organism Qualified Code(s): J18.9 - Pneumonia, unspecified organism Code(s): J18.9 - Pneumonia, unspecified organism Status: Acute Assessment and Plan: Will continue with antibiotics and repeat chest x-ray. (2) Neutropenia: Code(s): D70.9 - Neutropenia, unspecified Status: Acute Assessment and Plan: Consult Heme-Onc and monitor closely (3) Hypertension: Code(s): I10 - Essential (primary) hypertension Status: Acute Assessment and Plan: Stable on current medication (4) Type 2 diabetes mellitus: Code(s): E11.9 - Type 2 diabetes mellitus without complications Status: Acute Assessment and Plan: Restart home meds and follow sliding scale insulin (5) Atrial fibrillation with rapid ventricular response: Code(s): I48.91 - Unspecified atrial fibrillation Status: Acute Assessment and Plan: Normal sinus rhythm at present will monitor closely. Cannot anticoagulate because of thrombocytopenia and severe anemia. (6) Anemia: Code(s): D64.9 - Anemia, unspecified Status: Acute Assessment and Plan: Monitor closely Heme-Onc consult. (7) Hypokalemia: Code(s): E87.6 - Hypokalemia Status: Acute Assessment and Plan: Replace and monitor closely Additional Plan 09/20/2021 Heme-Onc consult noted. Will continue to monitor CBC. Repeat chest x-ray. Replace and monitor potassium. Increase activity as tolerated. Possible discharge next few days. 09/21/2021 Patient continued to improve gradually. No new complaints. Potassium is still low, will replace and repeat in the morning. If stays okay will discharge home in the morning. Subjective Date/time seen: 09/21/21 11:56 Patient was seen during morning rounds today. Patient breathing is better. No chest pain. No abdominal pain, nausea, no vomiting. Mood stable we a Review of Systems Review of Systems: All systems reviewed & are unremarkable except as noted in HPI and below (the history and physical examination.) Exam Narrative: General: Thin, frail elderly female supine in bed. Mildly ill in appearance. Weight: 52.3 kg. BMI: 19.8. HEENT: PERRL, EOMI. Sclerae anicteric. Dry mucous membranes. Oropharynx is clear. Neck: Supple. No adenopathy or JVD. Respiratory: Respirations are nonlabored and she is speaking in full sentences. She has an occasional wet cough. Lung sounds are diminished with faint crackles at the left base. Cardiovascular: Irregularly irregular rate and rhythm. Soft murmur at the upper sternal border. Gastrointestinal: Abdomen is soft, nontender, and nondistended with positive bowel sounds. Skin: Warm and dry. No rash or lesions on limited exam. Extremities: No cyanosis, clubbing, or edema. Radial and pedal pulses intact. Neurological: Alert. Cranial nerves 2-12 are grossly intact. No gross focal deficits to casual conversation. Psychiatric: Pleasant and cooperative with normal mood and affect. Const: General: cooperative and no acute distress Orientation/consciousness: oriented to person, oriented to place, oriented to time and patient oriented x3 HENMT: Head: normal to inspection Ears: hearing grossly normal bilaterally and external ears normal General nose exam: Normal external nose present Face and sinus: normal facial exam Mouth: Yes Normal oral and palatal mucosa present Eyes: General: appearance normal, both eyes and all related structures Neck: Neck: normal visual inspection and full ROM Chest: Chest palpation & inspection: normal inspection of the chest and normal palpation of entire chest wall Resp: Effort & Inspection: normal respiratory effort Auscultation: clear to auscultation bilaterally Cardio: Jugular venous distension: no JVD Palpation: normal PMI
[2021-09-21 12:19] LABS: Glucose Point of Care 180 mg/dl (65-105)
--- NOTE | 2021-09-21 12:40 | PCNFU ---
Nutrition Follow-Up Complete: Inadequate oral intake related to decreased appetite and pneumonia as evidenced by BMI of 16.6 and oral intake of 5% of last meal ordered. Goal: Patient to meet estimated nutritional needs. Pt. is progressing towards goal. No new goal at this time. Pt current nutrition is a regular diet with level 6 soft and bite sized. Last recorded weight is 49.3 kg. Recommend re-weighing pt. prior to discharge. Bowel Motility: + BM 09/21/2021 Labs Reviewed: Hgb 8.4, Hct 26.6, Alb 2.7, Na 147, K 3.0, Glu 203 Meds Noted: Lipitor, Drisdol, Glucagon, Glucose, Insulin, Cozaar, Mag-Ox, Mirtazapine, Kcl tablet, Desyrel, Glucophage, Imodium Skin:No skin breakdown at this time. WNL. Additional Notes: Patient has little to no appetite consuming on average 12.5% of meals and she refuses meals a lot as well. She is receiving ensure compact BID providing an additional 220 calories and 9 grams of protein to increase oral intake. Potassium is being replaced. Possible discharge today 09/21/2021. Monitor pt. labs, medications, weight and oral intake every 3 days.
[2021-09-21 14:00] VITALS: BP 129/81; PULSE 87; RESP 16; TEMP 36.6; O2SAT 100
[2021-09-21 16:36] LABS: Glucose Point of Care 239 mg/dl (65-105)
[2021-09-21] MEDS: traZODone HCL 50 MG TABLET PO (17:11)
[2021-09-21 20:00] VITALS: O2SAT 100
[2021-09-21] MEDS: CENTRAL LINE FLUSH 10 ML IV PUSH (20:11)
[2021-09-21 21:23] LABS: Glucose Point of Care 231 mg/dl (65-105)
[2021-09-21 22:00] VITALS: BP 125/46; PULSE 77; RESP 20; TEMP 36.6; O2SAT 99
[2021-09-22] MEDS: LOPERAMIDE HCL 2 MG CAPSULE PO ×4 (01:13→23:54)
[2021-09-22] MEDS: ONDANSETRON HCL ODT 4 MG TABLET 8 MG PO (05:35)
[2021-09-22] MEDS: CENTRAL LINE FLUSH 10 ML IV PUSH ×3 (05:37→21:22)
[2021-09-22 06:00] VITALS: BP 138/57; PULSE 110; RESP 20; TEMP 36.3; O2SAT 100
[2021-09-22 08:08] LABS: Glucose Point of Care 257 mg/dl (65-105)
[2021-09-22 08:12] LABS: Anion Gap 6 mmol/L (8-16); Blood Urea Nitrogen 17 mg/dL (7-17); Calcium 8.1 mg/dL (8.4-10.2); Carbon Dioxide 12 mmol/L (22-30); Chloride 130 mmol/L (98-107); Estimated CRCL calculation 38 ml/min; Estimated Glomerular Filt Rate > 60; Glucose 268 mg/dL (65-110); Potassium 2.7 mmol/L (3.4-5.0); Sodium 148 mmol/L (137-145)
[2021-09-22 09:00] VITALS: O2SAT 100
[2021-09-22] MEDS: DEXTROSE 5%/0.9% SOD CHL 1,000 ML 100 ML IV CONT (09:49)
[2021-09-22] MEDS: KCL 20 MEQ/SW 100 ML 100 ML 50 MEQ IVPB ×2 (10:08→14:47)
--- NOTE | 2021-09-22 11:11 | PM.IMPN ---
Progress Note: A&P Assessment and Plan (1) Pneumonia: Qualifiers: Laterality: left Lung location: lower lobe of lung Pneumonia type: due to unspecified organism Qualified Code(s): J18.9 - Pneumonia, unspecified organism Code(s): J18.9 - Pneumonia, unspecified organism Status: Acute Assessment and Plan: Will continue with antibiotics and repeat chest x-ray. (2) Neutropenia: Code(s): D70.9 - Neutropenia, unspecified Status: Acute Assessment and Plan: Consult Heme-Onc and monitor closely (3) Hypertension: Code(s): I10 - Essential (primary) hypertension Status: Acute Assessment and Plan: Stable on current medication (4) Type 2 diabetes mellitus: Code(s): E11.9 - Type 2 diabetes mellitus without complications Status: Acute Assessment and Plan: Restart home meds and follow sliding scale insulin (5) Atrial fibrillation with rapid ventricular response: Code(s): I48.91 - Unspecified atrial fibrillation Status: Acute Assessment and Plan: Normal sinus rhythm at present will monitor closely. Cannot anticoagulate because of thrombocytopenia and severe anemia. (6) Anemia: Code(s): D64.9 - Anemia, unspecified Status: Acute Assessment and Plan: Monitor closely Heme-Onc consult. (7) Hypokalemia: Code(s): E87.6 - Hypokalemia Status: Acute Assessment and Plan: Replace and monitor closely (8) Diarrhea: Code(s): R19.7 - Diarrhea, unspecified Status: Acute Assessment and Plan: Will check for C- Diff Additional Plan 09/20/2021 Heme-Onc consult noted. Will continue to monitor CBC. Repeat chest x-ray. Replace and monitor potassium. Increase activity as tolerated. Possible discharge next few days. 09/21/2021 Patient continued to improve gradually. No new complaints. Potassium is still low, will replace and repeat in the morning. If stays okay will discharge home in the morning. 09/22/2021 Family meeting. Case was discussed in detail. New findings the patient has developed diarrhea. Withhold antibiotic and start workup for C diff infection. Replace electrolytes as needed Subjective Date/time seen: 09/22/21 11:11 Patient breathing is better with the new complaint is that patient has developed diarrhea. Patient also complained of weakness and tiredness. Shortness of breath or chest pain. No vomiting Review of Systems Review of Systems: All systems reviewed & are unremarkable except as noted in HPI and below (the history and physical examination.) Exam Narrative: General: Thin, frail elderly female supine in bed. Mildly ill in appearance. Weight: 52.3 kg. BMI: 19.8. HEENT: PERRL, EOMI. Sclerae anicteric. Dry mucous membranes. Oropharynx is clear. Neck: Supple. No adenopathy or JVD. Respiratory: Respirations are nonlabored and she is speaking in full sentences. She has an occasional wet cough. Lung sounds are diminished with faint crackles at the left base. Cardiovascular: Irregularly irregular rate and rhythm. Soft murmur at the upper sternal border. Gastrointestinal: Abdomen is soft, nontender, and nondistended with positive bowel sounds. Skin: Warm and dry. No rash or lesions on limited exam. Extremities: No cyanosis, clubbing, or edema. Radial and pedal pulses intact. Neurological: Alert. Cranial nerves 2-12 are grossly intact. No gross focal deficits to casual conversation. Psychiatric: Pleasant and cooperative with normal mood and affect. Const: General: cooperative and no acute distress Orientation/consciousness: oriented to person, oriented to place, oriented to time and patient oriented x3 HENMT: Head: normal to inspection Ears: hearing grossly normal bilaterally and external ears normal General nose exam: Normal external nose present Face and sinus: normal facial exam Mouth: Yes Normal oral and palatal mucosa present Eyes: General: appearance n
[2021-09-22] MEDS: POTASSIUM CHLORIDE 20 MEQ TABLET.ER 40 MEQ PO (11:48)
[2021-09-22] MEDS: metroNIDAZOLE 250 MG TABLET 500 MG PO ×3 (11:48→23:54)
[2021-09-22] MEDS: SACCHAROMYCES BOULARDII 250 MG CAPSULE PO ×2 (11:49→18:34)
[2021-09-22] MEDS: CLOPIDOGREL BISULFATE 75 MG TABLET PO (11:50)
[2021-09-22] MEDS: LOSARTAN POTASSIUM 50 MG TABLET PO (11:51)
[2021-09-22 12:08] LABS: Glucose Point of Care 242 mg/dl (65-105)
[2021-09-22 14:00] VITALS: BP 127/63; PULSE 96; RESP 14; TEMP 36.6; O2SAT 100
[2021-09-22] MEDS: ONDANSETRON INJ 4 MG/2 ML VIAL 8 MG IV PUSH ×2 (14:46→21:22)
[2021-09-22 17:07] LABS: Glucose Point of Care 294 mg/dl (65-105)
[2021-09-22] MEDS: INSULIN ASPART (*BKC) 100 UNITS/ML SUB-Q (18:37)
[2021-09-22] MEDS: DEXTROSE 5%/0.9% SOD CHL 1,000 ML 125 ML IV CONT (21:25)
[2021-09-22 21:31] LABS: Glucose Point of Care 297 mg/dl (65-105)
[2021-09-22 22:00] VITALS: BP 140/61; PULSE 100; RESP 22; TEMP 36.7; O2SAT 96
[2021-09-22] MEDS: INSULIN ASPART (*BKC) 100 UNITS/ML 6 UNITS SUB-Q (23:55)
[2021-09-23 03:12] LABS: Glucose Point of Care 161 mg/dl (65-105)
[2021-09-23] MEDS: DEXTROSE 5%/0.9% SOD CHL 1,000 ML 125 ML IV CONT (05:39)
[2021-09-23] MEDS: ONDANSETRON INJ 4 MG/2 ML VIAL 8 MG IV PUSH ×3 (05:40→22:18)
[2021-09-23] MEDS: metroNIDAZOLE 250 MG TABLET 500 MG PO ×3 (05:40→17:01)
[2021-09-23] MEDS: CENTRAL LINE FLUSH 10 ML IV PUSH ×3 (05:41→22:38)
[2021-09-23 05:50] VITALS: BP 97/52; PULSE 100; RESP 16; TEMP 37.2; O2SAT 100
[2021-09-23 07:23] LABS: Alanine Aminotransferase 15 U/L (4-35); Albumin Level 2.3 g/dL (3.5-5.1); Alkaline Phosphatase 71 U/L (38-126); Anion Gap 7 mmol/L (8-16); Aspartate Amino Transferase 18 U/L (14-36); Bilirubin,Total 0.2 mg/dL (0.2-1.3); Blood Urea Nitrogen 13 mg/dL (7-17); Calcium 7.4 mg/dL (8.4-10.2); Carbon Dioxide 14 mmol/L (22-30); Chloride 127 mmol/L (98-107); Estimated CRCL calculation 37 ml/min; Estimated Glomerular Filt Rate > 60; Glucose 171 mg/dL (65-110); Sodium 148 mmol/L (137-145)
[2021-09-23] MEDS: POTASSIUM CHLORIDE INJ 40 MEQ in SODIUM CHLORIDE 0.9% IV 500 ML 120.71 MEQ IVPB ×2 (08:52→13:13)
--- NOTE | 2021-09-23 12:08 | PM.IMPN ---
Progress Note: A&P Assessment and Plan (1) Pneumonia: Qualifiers: Laterality: left Lung location: lower lobe of lung Pneumonia type: due to unspecified organism Qualified Code(s): J18.9 - Pneumonia, unspecified organism Code(s): J18.9 - Pneumonia, unspecified organism Status: Acute Assessment and Plan: Will continue with antibiotics and repeat chest x-ray. (2) Neutropenia: Code(s): D70.9 - Neutropenia, unspecified Status: Acute Assessment and Plan: Consult Heme-Onc and monitor closely (3) Hypertension: Code(s): I10 - Essential (primary) hypertension Status: Acute Assessment and Plan: Stable on current medication (4) Type 2 diabetes mellitus: Code(s): E11.9 - Type 2 diabetes mellitus without complications Status: Acute Assessment and Plan: Restart home meds and follow sliding scale insulin (5) Atrial fibrillation with rapid ventricular response: Code(s): I48.91 - Unspecified atrial fibrillation Status: Acute Assessment and Plan: Normal sinus rhythm at present will monitor closely. Cannot anticoagulate because of thrombocytopenia and severe anemia. (6) Anemia: Code(s): D64.9 - Anemia, unspecified Status: Acute Assessment and Plan: Monitor closely Heme-Onc consult. (7) Hypokalemia: Code(s): E87.6 - Hypokalemia Status: Acute Assessment and Plan: Replace and monitor closely (8) Diarrhea: Code(s): R19.7 - Diarrhea, unspecified Status: Acute Assessment and Plan: Will check for C- Diff Additional Plan 09/20/2021 Heme-Onc consult noted. Will continue to monitor CBC. Repeat chest x-ray. Replace and monitor potassium. Increase activity as tolerated. Possible discharge next few days. 09/21/2021 Patient continued to improve gradually. No new complaints. Potassium is still low, will replace and repeat in the morning. If stays okay will discharge home in the morning. 09/22/2021 Family meeting. Case was discussed in detail. New findings the patient has developed diarrhea. Withhold antibiotic and start workup for C diff infection. Replace electrolytes as needed September 23, 2021 Case discussed with family in detail, agreed with current plan of care and treatment. Will continue to replace electrolytes and monitor closely. Patient clinically better. Subjective Date/time seen: 09/23/21 12:08 Patient was seen in the morning the morning rounds. Family bedside. Diarrhea slightly improved. No shortness of breath or chest pain. Mood stable. Review of Systems Review of Systems: All systems reviewed & are unremarkable except as noted in HPI and below (the history and physical examination.) Exam Narrative: General: Thin, frail elderly female supine in bed. Mildly ill in appearance. Weight: 52.3 kg. BMI: 19.8. HEENT: PERRL, EOMI. Sclerae anicteric. Dry mucous membranes. Oropharynx is clear. Neck: Supple. No adenopathy or JVD. Respiratory: Respirations are nonlabored and she is speaking in full sentences. She has an occasional wet cough. Lung sounds are diminished with faint crackles at the left base. Cardiovascular: Irregularly irregular rate and rhythm. Soft murmur at the upper sternal border. Gastrointestinal: Abdomen is soft, nontender, and nondistended with positive bowel sounds. Skin: Warm and dry. No rash or lesions on limited exam. Extremities: No cyanosis, clubbing, or edema. Radial and pedal pulses intact. Neurological: Alert. Cranial nerves 2-12 are grossly intact. No gross focal deficits to casual conversation. Psychiatric: Pleasant and cooperative with normal mood and affect. Const: General: cooperative and no acute distress Orientation/consciousness: oriented to person, oriented to place, oriented to time and patient oriented x3 HENMT: Head: normal to inspection Ears: hearing grossly normal bilaterally and external ears normal General nose e
[2021-09-23] MEDS: MAGNES & ALUM HYD/SIMETH/DIPHENHYD/LIDOCAINE 119 ML MOUTHWASH BY MOUTH (13:11)
[2021-09-23] MEDS: MAGNESIUM SULF 2 GM/WATER 50ML 2 GM/50 ML BAG IVPB (13:14)
[2021-09-23] MEDS: LOPERAMIDE HCL 2 MG CAPSULE PO (13:25)
[2021-09-23 14:00] VITALS: BP 107/54; PULSE 67; RESP 16; TEMP 36.6; O2SAT 100
[2021-09-23 14:14] LABS: Glucose Point of Care 186 mg/dl (65-105)
[2021-09-23 16:00] VITALS: PULSE 84
[2021-09-23] MEDS: POTASSIUM CHLORIDE INJ 40 MEQ in SODIUM CHLORIDE 0.9% IV 500 ML 120 MEQ IVPB (17:53)
[2021-09-23 18:29] LABS: Glucose Point of Care 203 mg/dl (65-105)
[2021-09-23 20:00] VITALS: PULSE 90
[2021-09-23 22:00] VITALS: BP 127/56; PULSE 93; RESP 17; TEMP 36.3; O2SAT 100
[2021-09-23] MEDS: KCL 20 MEQ/D5/0.45% SOD CHL 1,000 ML 125 ML IV CONT (23:06)
[2021-09-24] VITALS (15 sets, daily range): BP systolic 104–125; BP diastolic 50–71; PULSE 62–106; RESP 14–18; TEMP 36.2–36.7; O2SAT 98–100
[2021-09-24] MEDS: metroNIDAZOLE 250 MG TABLET 500 MG PO ×5 (00:34→22:36)
[2021-09-24] MEDS: ONDANSETRON INJ 4 MG/2 ML VIAL 8 MG IV PUSH ×3 (06:24→22:30)
[2021-09-24] MEDS: CENTRAL LINE FLUSH 10 ML IV PUSH ×3 (06:25→22:36)
[2021-09-24 06:34] LABS: Basophils Absolute Auto 0.1 K/mm3 (0.0-0.1); Basophils Percent Auto 0.4 % (0.2-1.2); Hematocrit 21.9 % (37.0-47.0); Immature Granulocyte Absolute 0.26 K/mm3 (0.00-0.031); Immature Granulocyte Percent A 2.1 % (0-0.5); Lymphocytes Absolute Auto 1.05 K/mm3 (0.9-3.2); Lymphocytes Percent Auto 8.3 % (18.3-44.2); Mean Corpuscular HGB Conc 31.5 g/dl (32-36); Mean Platelet Volume 10.6 fl (7.4-10.4); Monocytes Absolute Auto 0.4 K/mm3 (0.1-0.6); Monocytes Percent Auto 3.5 % (2.6-8.5); Neutrophils Absolute Auto 10.9 K/mm3 (1.3-6.7); Neutrophils Percent Auto 85.7 % (45.5-73.1); Nucleated Red Blood Cells Absolute Auto 0.2 K/mm3 (0.0-0.012); Nucleated Red Blood Cells Perc 1.7 % (0.0-0.2); Platelet Count Result 229 k/mm3 (150-375); Red Blood Count 2.38 M/mm3 (4.2-5.4); Red Cell Distribution Width 20.7 % (11.5-14.5); White Blood Count 12.7 K/mm3 (4.5-10.0)
[2021-09-24 07:04] LABS: Hemoglobin 6.9 g/dL (12.0-15.0)
[2021-09-24] MEDS: KCL 20 MEQ/D5/0.45% SOD CHL 1,000 ML 125 ML IV CONT (07:18)
[2021-09-24 07:39] LABS: Alanine Aminotransferase 16 U/L (4-35); Albumin Level 2.2 g/dL (3.5-5.1); Alkaline Phosphatase 73 U/L (38-126); Anion Gap 4 mmol/L (8-16); Aspartate Amino Transferase 18 U/L (14-36); Bilirubin,Total 0.2 mg/dL (0.2-1.3); Blood Urea Nitrogen 11 mg/dL (7-17); Carbon Dioxide 17 mmol/L (22-30); Chloride 127 mmol/L (98-107); Estimated CRCL calculation 37 ml/min; Estimated Glomerular Filt Rate > 60; Glucose 363 mg/dL (65-110); Magnesium 2.4 mg/dL (1.6-2.3); Potassium 2.5 mmol/L (3.4-5.0); Sodium 148 mmol/L (137-145)
[2021-09-24 07:58] LABS: Glucose Point of Care 319 mg/dl (65-105)
--- NOTE | 2021-09-24 09:04 | PM.IMPN ---
Progress Note: A&P Assessment and Plan (1) Pneumonia: Qualifiers: Laterality: left Lung location: lower lobe of lung Pneumonia type: due to unspecified organism Qualified Code(s): J18.9 - Pneumonia, unspecified organism Code(s): J18.9 - Pneumonia, unspecified organism Status: Acute Assessment and Plan: Patient has completed course of antibiotics. Patient is clinically better. Will continue monitor. (2) Neutropenia: Code(s): D70.9 - Neutropenia, unspecified Status: Acute Assessment and Plan: Consult Heme-Onc and monitor closely (3) Hypertension: Code(s): I10 - Essential (primary) hypertension Status: Acute Assessment and Plan: Stable on current medication (4) Type 2 diabetes mellitus: Code(s): E11.9 - Type 2 diabetes mellitus without complications Status: Acute Assessment and Plan: Restart home meds and follow sliding scale insulin (5) Atrial fibrillation with rapid ventricular response: Code(s): I48.91 - Unspecified atrial fibrillation Status: Acute Assessment and Plan: Normal sinus rhythm at present will monitor closely. Cannot anticoagulate because of thrombocytopenia and severe anemia. (6) Anemia: Code(s): D64.9 - Anemia, unspecified Status: Acute Assessment and Plan: Patient hemoglobin has dropped today to 6.8, will transfuse and monitor closely. (7) Hypokalemia: Code(s): E87.6 - Hypokalemia Status: Acute Assessment and Plan: Replace and monitor closely (8) Diarrhea: Code(s): R19.7 - Diarrhea, unspecified Status: Acute Assessment and Plan: C diff is positive patient is on metronidazole. Additional Plan 09/20/2021 Heme-Onc consult noted. Will continue to monitor CBC. Repeat chest x-ray. Replace and monitor potassium. Increase activity as tolerated. Possible discharge next few days. 09/21/2021 Patient continued to improve gradually. No new complaints. Potassium is still low, will replace and repeat in the morning. If stays okay will discharge home in the morning. 09/22/2021 Family meeting. Case was discussed in detail. New findings the patient has developed diarrhea. Withhold antibiotic and start workup for C diff infection. Replace electrolytes as needed September 23, 2021 Case discussed with family in detail, agreed with current plan of care and treatment. Will continue to replace electrolytes and monitor closely. Patient clinically better. September 24, 2021 Family meeting was held today. Case was discussed in detail. Family agreed with current plan of care and treatment. Plan is to continue with C diff treatment. Transfuse and monitor hemoglobin. Replace potassium and monitor. Subjective Date/time seen: 09/24/21 09:04 Patient was seen during morning rounds today. Patient is feeling much better. No shortness of breath or chest pain. Diarrhea has decreased. Abdominal pain, nausea, no vomiting. Mood stable. Review of Systems Review of Systems: All systems reviewed & are unremarkable except as noted in HPI and below (the history and physical examination.) Exam Narrative: General: Thin, frail elderly female supine in bed. Mildly ill in appearance. Weight: 52.3 kg. BMI: 19.8. HEENT: PERRL, EOMI. Sclerae anicteric. Dry mucous membranes. Oropharynx is clear. Neck: Supple. No adenopathy or JVD. Respiratory: Respirations are nonlabored and she is speaking in full sentences. She has an occasional wet cough. Lung sounds are diminished with faint crackles at the left base. Cardiovascular: Irregularly irregular rate and rhythm. Soft murmur at the upper sternal border. Gastrointestinal: Abdomen is soft, nontender, and nondistended with positive bowel sounds. Skin: Warm and dry. No rash or lesions on limited exam. Extremities: No cyanosis, clubbing, or edema. Radial and pedal pulses intact. Neurological: Alert. Cranial nerves 2-12 are grossly
[2021-09-24] MEDS: INSULIN ASPART (*BKC) 100 UNITS/ML SUB-Q ×2 (09:45→12:53)
[2021-09-24] MEDS: POTASSIUM CHLORIDE 20 MEQ TABLET.ER 40 MEQ PO (09:47)
[2021-09-24] MEDS: LOPERAMIDE HCL 2 MG CAPSULE PO ×2 (09:48→12:52)
[2021-09-24] MEDS: POTASSIUM CHLORIDE INJ 40 MEQ in SODIUM CHLORIDE 0.9% IV 500 ML 130 MEQ IVPB (09:48)
[2021-09-24] MEDS: SACCHAROMYCES BOULARDII 250 MG CAPSULE PO ×2 (09:48→18:30)
[2021-09-24] MEDS: CLOPIDOGREL BISULFATE 75 MG TABLET PO (09:48)
[2021-09-24 12:00] LABS: Glucose Point of Care 333 mg/dl (65-105)
[2021-09-24] MEDS: PANTOPRAZOLE SODIUM IV 40 MG VIAL IV PUSH (12:52)
--- NOTE | 2021-09-24 13:26 | PCNFU ---
Nutrition Follow-Up Complete: Inadequate oral intake related to decreased appetite and pneumonia as evidenced by BMI of 16.6 and oral intake of 5% of last meal ordered. Goal: Patient to meet estimated nutritional needs. Pt. is progressing towards goal. No new goal at this time. Pt current nutrition is a regular diet with level 6 soft and bite sized. Last recorded weight is 48 kg. Recommend re-weighing pt. prior to discharge. Bowel Motility: + BM 09/23/2021 (Lomotil given) Labs Reviewed: Hgb 6.9, Hct 21.9, Alb 2.2, Na 148, K 2.5, Glu 363 Meds Noted: Albuterol, Lipitor, Plavix, Vitamin B-12, Zyloprim, Drisdol, Glucagon, Glucose, Insulin, Heparin Sodium, Cozaar, Imodium, Flagyl, Mirtazapine, Kcl tablet, Protonix Skin: No skin break down at this time. WNL. Additional Notes: Pt. is ordered ensure compact BID providing an additional 220 calories and 9 grams of protein. Pt average oral intake is 24% of meals. Continue to encourage oral intake. Monitor pt. labs, medications, weight and oral intake every 3 days.
[2021-09-24] MEDS: KCL 40 MEQ/WATER 100 ML 100 ML 25 ML IVPB ×2 (14:36→18:57)
[2021-09-24] MEDS: SODIUM CHLORIDE 0.9% IV 250 ML 30 ML IV CONT (14:36)
[2021-09-24 17:02] LABS: Glucose Point of Care 165 mg/dl (65-105)
[2021-09-24 21:11] LABS: Glucose Point of Care 128 mg/dl (65-105)
[2021-09-25] VITALS: PULSE 71
[2021-09-25] MEDS: KCL 20 MEQ/D5/0.45% SOD CHL 1,000 ML 125 ML IV CONT (03:38)
[2021-09-25 04:00] VITALS: PULSE 60
[2021-09-25] MEDS: ONDANSETRON INJ 4 MG/2 ML VIAL 8 MG IV PUSH (05:15)
[2021-09-25] MEDS: CENTRAL LINE FLUSH 10 ML IV PUSH (05:15)
[2021-09-25] MEDS: metroNIDAZOLE 250 MG TABLET 500 MG PO ×2 (05:15→12:02)
[2021-09-25 05:25] LABS: Basophils Absolute Auto 0.1 K/mm3 (0.0-0.1); Basophils Percent Auto 0.4 % (0.2-1.2); Eosinophils Percent Auto 0.1 % (0-4.4); Hematocrit 31.8 % (37.0-47.0); Hemoglobin 10.3 g/dL (12.0-15.0); Immature Granulocyte Absolute 0.25 K/mm3 (0.00-0.031); Immature Granulocyte Percent A 2.1 % (0-0.5); Lymphocytes Absolute Auto 1.23 K/mm3 (0.9-3.2); Lymphocytes Percent Auto 10.2 % (18.3-44.2); Mean Corpuscular HGB Conc 32.4 g/dl (32-36); Mean Corpuscular Hemoglobin 29.4 pg (26-34); Mean Corpuscular Volume 90.9 fl (80-100); Mean Platelet Volume 10.3 fl (7.4-10.4); Monocytes Absolute Auto 0.4 K/mm3 (0.1-0.6); Monocytes Percent Auto 3.6 % (2.6-8.5); Neutrophils Absolute Auto 10.1 K/mm3 (1.3-6.7); Neutrophils Percent Auto 83.6 % (45.5-73.1); Nucleated Red Blood Cells Absolute Auto 0.2 K/mm3 (0.0-0.012); Nucleated Red Blood Cells Perc 1.3 % (0.0-0.2); Platelet Count Result 185 k/mm3 (150-375); Red Cell Distribution Width 20.5 % (11.5-14.5); White Blood Count 12.1 K/mm3 (4.5-10.0)
[2021-09-25 05:42] LABS: Alanine Aminotransferase 17 U/L (4-35); Albumin Level 2.1 g/dL (3.5-5.1); Alkaline Phosphatase 71 U/L (38-126); Anion Gap 2 mmol/L (8-16); Aspartate Amino Transferase 17 U/L (14-36); Bilirubin,Total 0.2 mg/dL (0.2-1.3); Blood Urea Nitrogen 9 mg/dL (7-17); Calcium 7.4 mg/dL (8.4-10.2); Carbon Dioxide 17 mmol/L (22-30); Chloride 127 mmol/L (98-107); Estimated CRCL calculation 37 ml/min; Estimated Glomerular Filt Rate > 60; Glucose 283 mg/dL (65-110); Sodium 146 mmol/L (137-145)
[2021-09-25 06:00] VITALS: BP 126/68; PULSE 65; RESP 16; TEMP 36.6; O2SAT 100
[2021-09-25 08:00] VITALS: PULSE 73
[2021-09-25] MEDS: INSULIN ASPART (*BKC) 100 UNITS/ML SUB-Q ×2 (09:07→12:03)
[2021-09-25] MEDS: POTASSIUM CHLORIDE 20 MEQ TABLET.ER 40 MEQ PO (09:09)
[2021-09-25] MEDS: CLOPIDOGREL BISULFATE 75 MG TABLET PO (09:09)
[2021-09-25] MEDS: LOSARTAN POTASSIUM 50 MG TABLET PO (09:09)
[2021-09-25] MEDS: SACCHAROMYCES BOULARDII 250 MG CAPSULE PO (09:10)
[2021-09-25] MEDS: ATORVASTATIN 20 MG TABLET PO (09:10)
[2021-09-25] MEDS: allopurinoL 100 MG TABLET PO (09:10)
[2021-09-25] MEDS: PANTOPRAZOLE SODIUM IV 40 MG VIAL IV PUSH (09:11)
[2021-09-25 10:21] LABS: Glucose Point of Care 310 mg/dl (65-105)
[2021-09-25 11:46] LABS: Glucose Point of Care 257 mg/dl (65-105)
--- NOTE | 2021-09-25 11:50 | PM.DS ---
DS: Admitting Diagnosis Discharge Date 09/25/2021 Admitting Diagnosis weakness DS: Discharge Diagnosis Discharge Diagnosis (1) Pneumonia: Qualifiers: Laterality: left Lung location: lower lobe of lung Pneumonia type: due to unspecified organism Qualified Code(s): J18.9 - Pneumonia, unspecified organism Code(s): J18.9 - Pneumonia, unspecified organism Status: Acute Assessment and Plan: Patient has completed course of antibiotics. Patient is clinically better. Will continue monitor. (2) Neutropenia: Code(s): D70.9 - Neutropenia, unspecified Status: Acute Assessment and Plan: Consult Heme-Onc and monitor closely (3) Hypertension: Code(s): I10 - Essential (primary) hypertension Status: Acute Assessment and Plan: Stable on current medication (4) Type 2 diabetes mellitus: Code(s): E11.9 - Type 2 diabetes mellitus without complications Status: Acute Assessment and Plan: Restart home meds and follow sliding scale insulin (5) Atrial fibrillation with rapid ventricular response: Code(s): I48.91 - Unspecified atrial fibrillation Status: Acute Assessment and Plan: Normal sinus rhythm at present will monitor closely. Cannot anticoagulate because of thrombocytopenia and severe anemia. (6) Anemia: Code(s): D64.9 - Anemia, unspecified Status: Acute Assessment and Plan: Patient hemoglobin has dropped today to 6.8, will transfuse and monitor closely. (7) Hypokalemia: Code(s): E87.6 - Hypokalemia Status: Acute Assessment and Plan: Replace and monitor closely (8) Diarrhea: Code(s): R19.7 - Diarrhea, unspecified Status: Acute Assessment and Plan: C diff is positive patient is on metronidazole. DS: Summary Hospital Course Reason for hospitalization: Chief Complaint: Weakness. Narrative: This is a very pleasant 81-year-old female smoker with history of diabetes, coronary artery disease, hypertension, and colon cancer who presented to the emergency department earlier today for evaluation of weakness. She is currently being treated for her colon cancer by Dr. Luna at [facility] and her last treatment was about 1 week ago. She has not been feeling well since that time with symptoms to include dry mouth, nausea, decreased oral intake, diarrhea, and cough occasionally productive of yellow sputum. On arrival to the emergency department she was afebrile and her blood pressure and pulse ox were well within normal limits. Her heart rate however was bouncing between 120 to 140s and she was found to be in atrial fibrillation with rapid ventricular response. She does not think she has a history of AFib but does report a history of ?tachycardia.? She is not symptomatic with the atrial fibrillation and she specifically denies feelings of racing heart and palpitations. She denies sick contacts and known exposure to those positive for COVID. No significant sinus congestion, rhinorrhea, otalgia, or odynophagia. She denies syncope and near-syncope. No vomiting or dysuria. Hospital Course: Patient with C diff still have loose BM and had 4 today, patient daughter is a nurse and would to take her mother home, she has enough help and she feels comfortable taking her home, patient will need her potassium and mag check every other buddy first on 09/27/2020, patient to follow up with her primary care and check her labs, If any symptoms worsen, is instructed to go to nearest ER. Time Spent with Patient Time attestation: Total time spent providing and/or coordinating discharge services: Exam Narrative: Elderly frail Patient is comfortable, NAD HEENT: eyes are clear and none icteric LUNGS: normal respiratory effort ABD: not distended Lower extremities: no edema SKIN: nonjaundiced Neuro: grossly intact. DS: Data Data Completed and Pending Labs on day of discharge: Labs from last 24 hour
[2021-09-25 12:00] VITALS: PULSE 73
== END 2021-09-25 14:54 | disposition home health service (06) | DRG 308 ==
LOC: ANHED 14:47 → ANHIMU 16:54 → ANH3MEDSUR 09-20 02:43 → ANHIMU 09-28 12:29
PROVIDERS: Internal Medicine; Physician Assistant; Admitting Provider Family Medicine; Emergency Provider Emergency Medicine; PCP Internal Medicine; Visit Provider Internal Medicine
DX: I48.91 Unspecified atrial fibrillation (principal); J18.9 Pneumonia, unspecified organism; A04.72 Enterocolitis due to Clostridium difficile, not specified as recurrent; C18.9 Malignant neoplasm of colon, unspecified; J44.0 Chronic obstructive pulmonary disease with (acute) lower respiratory infection; Z20.822 Contact with and (suspected) exposure to COVID-19; D70.9 Neutropenia, unspecified; I10 Essential (primary) hypertension; D64.9 Anemia, unspecified; E87.6 Hypokalemia; F17.210 Nicotine dependence, cigarettes, uncomplicated; I25.10 Atherosclerotic heart disease of native coronary artery without angina pectoris; E11.42 Type 2 diabetes mellitus with diabetic polyneuropathy; E78.5 Hyperlipidemia, unspecified; K58.9 Irritable bowel syndrome, unspecified; E86.0 Dehydration; I73.9 Peripheral vascular disease, unspecified; I25.2 Old myocardial infarction; Z90.49 Acquired absence of other specified parts of digestive tract; Z95.820 Peripheral vascular angioplasty status with implants and grafts
CPT/HCPCS: 36415; 36430; 51701; 71045; 71046; 71275; 80048; 80053; 81001; 82728; 82948; 83036; 83615; 83735; 84132; 84443; 84484; 85025; 85027; 86140; 86644; 86850; 86900; 86901; 86920; 87040; 87070; 87077; 87186; 87205; 87324; 93005; 93306; 96365; 96366; 96368; 97110; 97116; 97161; 97530; 99285; A9270; C9113; C9803; G0378; J0692; J1642; J1815; J2405; J3475; J3480; J7030; J7040; J7042; J7050; P9016; Q9967; U0003; U0005

== ENCOUNTER 2022-01-13 01:32 | Inpatient (IN) | payer MEDICARE, SELFPAY ==
[2022-01-13] VITALS (25 sets, daily range): BP systolic 122–180; BP diastolic 60–90; PULSE 77–150; RESP 16–36; TEMP 36.1–36.7; O2SAT 92–100; BMI 19.0
--- NOTE | ~2022-01-13 | XR_ITS ---
EXAMINATION: XR chest 1V portable DATE: 01/13/2022 02:23 INDICATION: Shortness of breath TECHNIQUE: frontal view of the chest was obtained. COMPARISON: Chest radiograph dated 09/24/2021 FINDINGS: Increasing interstitial and hazy airspace opacities in the right mid to lower and left lower lung zon es. No pneumothorax. Small bilateral posteriorly layering pleural effusions. The cardiomediastinal si lhouette is normal. Right internal jugular central venous port catheter with distal tip at the superi or cavoatrial junction. IMPRESSION: 1. Bilateral basilar predominant lung disease most likely mild pulmonary edema with differential incl uding atelectasis or pneumonia. 2. Small bilateral pleural effusions. Reviewed, dictated and finalized at location A. IMPRESSION: 1. Bilateral basilar predominant lung disease most likely mild pulmonary edema with differential including atelectasis or pneumonia. 2. Small bilateral pleural effusions.
--- NOTE | ~2022-01-13 | CT_ITS ---
EXAMINATION: CTA chest PE protocol DATE: 01/13/2022 02:53 INDICATION: Shortness of breath. Elevated d-dimer. TECHNIQUE: Computed tomography (CT) pulmonary angiogram of the chest was performed with 100 mL Omnipa que-350 intravenous contrast. Additional 3D reconstructions utilizing coronal maximum intensity proje ction (MIP) were performed. Automated exposure control and iterative reconstruction technique were em ployed. The dose-length product was 167.95 mGy-cm. COMPARISON: 09/17/2021 FINDINGS: Excellent contrast opacification of the pulmonary arteries. There is mild streak artifact from dense contrast in the superior vena cava and right atrium. Mild scattered respiratory motion artifact which does not significantly limit evaluation. No pulmonary embolism. Mild to moderate emphysema. Small bi lateral dependently layering pleural effusions with mild atelectasis in the bilateral dependent lower lobes. There is some peripheral smooth septal line thickening the bilateral lower lung zones consist ent with mild pulmonary edema. No pneumonia. Heart size is normal. Atherosclerotic coronary artery ca lcification. Small pericardial effusion. Thoracic aorta is normal in caliber with no dissection. No p athologically enlarged thoracic lymphadenopathy. A few calcified mediastinal and bilateral hilar lymp h nodes consistent with old granulomatous disease. 4.9 cm cyst at the upper pole of the left kidney. Mild thoracic spondylosis. IMPRESSION: 1. No pulmonary embolism. 2. Mild pulmonary edema. The lung bases with small bilateral pleural effusions. 3. Mild to moderate emphysema. 4. Small pericardial effusion. Reviewed, dictated and finalized at location A.
--- NOTE | 2022-01-13 01:40 | ECG_ITS ---
Measurements Intervals [place] Rate: 158 P: 53 OK: 113 QRS: 49 QRSD: 76 T: 18 QT: 249 QTc: 404 Interpretive Statements BASELINE ARTIFACT REDUCES ECG QUALITY MULTI FOCAL ATRIAL TACHYCARDIA NONSPECIFIC ST & T-WAVE ABNORMALITY ABNORMAL RHYTHM ECG NO PREVIOUS ECG AVAILABLE FOR COMPARISON Electronically Signed On 01-13-2022 8:04:40 CDT by Ankit Bourne M.D.
--- NOTE | 2022-01-13 01:42 | ED.SOB ---
HPI - SOB/Dyspnea General Chief Complaint: Shortness of Breath/Dyspnea Stated Complaint: shortness of breath x 45 min. Time Seen by Provider: 01/13/22 01:39 Source: patient Mode of arrival: EMS Limitations: no limitations History of Present Illness HPI Narrative: Patient is an 81-year-old female brought in respiratory distress, started tonight. According to EMS patient's oxygen saturation was in the low 80s was placed on 4 L nasal cannula and brought up to 98 to 99%. Patient has a history of COPD and CHF but not on home O2. Patient denies any chest pain, abdominal pain, nausea, vomiting, diaphoresis, fever or chills. Related Data Allergies Allergy/AdvReac Type Severity Reaction Status Date / Time Penicillins Allergy Rash Verified 01/13/22 01:47 Review of Systems Review of Systems: All systems reviewed & are unremarkable except as noted in HPI and below Constitutional: Constitutional: Denies body ache(s), Denies chills, Denies excessive sweating, Denies fatigue, Denies fever(s), Denies headache(s), Denies lethargy, Denies malaise, Denies weakness and Denies weight loss Eyes: Eyes: Denies blurry vision, Denies change in vision and Denies loss of vision ENT: Denies dizziness, Denies ear discharge, Denies headache(s), Denies lip swelling, Denies epistaxis, Denies nasal congestion, Denies neck pain, Denies throat swelling and Denies tongue swelling Cardiovascular: Cardiovascular: Denies chest pain, Denies chest pain at rest, Denies chest pain with activity, Denies diaphoresis, Denies rapid heart rate, Denies edema, Denies irregular heart rhythm, Denies lightheadedness and Denies palpitations Respiratory: Respiratory: Denies chest congestion, Denies cough and Denies hemoptysis Gastrointestinal: Gastrointestinal: Denies abdominal pain, Denies melena, Denies hematochezia, Denies diarrhea, Denies nausea, Denies vomiting and Denies hematemesis Musculoskeletal: Musculoskeletal: Denies abnormal gait, Denies deformity, Denies joint swelling, Denies limited range of motion, Denies neck pain and Denies numbness Neurologic: Denies Abnormal speech present, Denies abnormal gait, Denies confusion, Denies dizziness, Denies headache(s), Denies focal weakness, Denies loss of vision, Denies numbness, Denies Other visual disturbances, Denies Sensory deficit (Neuro) and Denies weakness Psychiatric: Psychiatric: Denies confusion, Denies depression, Denies auditory hallucinations, Denies homicidal ideation and Denies suicidal ideation Endocrine: Endocrine: Denies cold intolerance, Denies excessive sweating, Denies fatigue, Denies heat intolerance and Denies palpitations Hematologic/Lymphatic: Hematologic/Lymphatic: Denies easy bleeding and Denies easy bruising Allergic/Immunologic: Allergic/Immunologic: Denies lip swelling, Denies throat swelling and Denies tongue swelling PMFSH Comments Past medical history: COPD, CHF,, hypertension, colon cancer currently on chemotherapy Family history: Unknown Social history: Positive for smoker, no EtOH use, lives at home Exam Const: General: cooperative, comfortable, well developed, alert and awake; No confusion Orientation/consciousness: oriented to person, oriented to place, oriented to time, patient oriented x3 and No confusion Limitations: no limitations Other: Severe respiratory distress, frail, ill-appearing HENMT: Head: normal to inspection, normocephalic and atraumatic Ears: hearing grossly normal bilaterally, TM normal on the right and TM normal on the left General nose exam: Normal external nose present, Normal nares present and No nasal discharge present Face and sinus: normal facial exam Mouth: Yes Normal oral and palatal mucosa present, Yes lip normal, Yes tongue normal and Yes oropharynx normal Throat: posterior oropharynx normal, tonsils normal and uvula midline Eyes: General: appearance normal, both eyes and all related structures Pupils: Equal, round and reactive pupils present EOM: EOMs intact b
--- NOTE | 2022-01-13 01:47 | PC.NURSE ---
repiratory at bedside with BiPap
[2022-01-13 01:55] LABS: Basophils Absolute Auto 0.1 K/mm3 (0.0-0.1); Basophils Percent Auto 0.6 % (0.2-1.2); Eosinophils Absolute Auto 0.3 K/mm3 (0-0.3); Eosinophils Percent Auto 2.3 % (0-4.4); Hematocrit 30.3 % (37.0-47.0); Immature Granulocyte Absolute 0.06 K/mm3 (0.00-0.031); Immature Granulocyte Percent A 0.5 % (0-0.5); Lymphocytes Absolute Auto 1.12 K/mm3 (0.9-3.2); Lymphocytes Percent Auto 9.5 % (18.3-44.2); Mean Corpuscular HGB Conc 29.7 g/dl (32-36); Mean Corpuscular Hemoglobin 33.7 pg (26-34); Mean Corpuscular Volume 113.5 fl (80-100); Mean Platelet Volume 10.9 fl (7.4-10.4); Monocytes Absolute Auto 0.3 K/mm3 (0.1-0.6); Monocytes Percent Auto 2.7 % (2.6-8.5); Neutrophils Absolute Auto 9.9 K/mm3 (1.3-6.7); Neutrophils Percent Auto 84.4 % (45.5-73.1); Platelet Count Result 201 k/mm3 (150-375); Red Blood Count 2.67 M/mm3 (4.2-5.4); Red Cell Distribution Width 19.7 % (11.5-14.5); White Blood Count 11.7 K/mm3 (4.5-10.0)
[2022-01-13] MEDS: IPRATROPIUM BR 0.02% INH SOLN 0.5 MG/2.5 ML VIAL INHALATION (01:55)
[2022-01-13] MEDS: ALBUTEROL SULFATE NEB 2.5 MG/0.5 ML INH 5 MG INHALATION (01:55)
[2022-01-13 02:03] LABS: Alveolar/Arterial O2 Gradient 95.5 mmHg; Base Excess ABG -0.5 mEq/l (+/-2.0); Fractional Inspired Oxygen 45 %; HCO3 ABG 23.9 mEq/l (22.0-26.0); Oxygen Content ABG 13.5 %vol (16.0-22.0); Oxygen Saturation ABG 99.3 % (95.0-100.0); Oxyhemoglobin 97.9 % THb (90.0-100.0); PCO2 ABG 38.2 mmHg (35.0-45.0); PO2 ABG 181.9 mmHg (80.0-100.0); PO2 FiO2 Ratio Arterial Blood 4.04 %; Total Hemoglobin 9.5 g/dL (12.0-18.0); pH ABG 7.414 (7.350-7.450)
[2022-01-13 02:03] LABS: Alanine Aminotransferase 20 U/L (4-35); Albumin Level 3.7 g/dL (3.5-5.1); Alkaline Phosphatase 80 U/L (38-126); Anion Gap 6 mmol/L (8-16); Aspartate Amino Transferase 30 U/L (14-36); Bilirubin,Total 0.5 mg/dL (0.2-1.3); Blood Urea Nitrogen 14 mg/dL (7-17); Calcium 8.3 mg/dL (8.4-10.2); Carbon Dioxide 27 mmol/L (22-30); Chloride 108 mmol/L (98-107); Estimated CRCL calculation 50 ml/min; Estimated Glomerular Filt Rate > 60; Glucose 179 mg/dL (65-110); Potassium 3.8 mmol/L (3.4-5.0); Sodium 141 mmol/L (137-145)
[2022-01-13] MEDS: methylPREDNISolone SOD SUCC 125 MG VIAL 80 MG IV PUSH (02:03)
[2022-01-13 02:04] LABS: Device BIPAP; Modified Allen's Test Pass; Site Drawn LEFT RADIAL
[2022-01-13 02:04] LABS: INR 1.2; Partial Thromboplastin Time 24.9 SECONDS (22.3-36.8); Prothrombin Time 14.4 Seconds (11.1-14.7)
[2022-01-13 02:05] LABS: Expiratory Pressure 5 cmH2O; Inspiratory Pressure 12 cmH2O
[2022-01-13 02:06] LABS: D Dimer 3.24 ug/mL (<0.48)
[2022-01-13] MEDS: FUROSEMIDE INJ 40 MG/4 ML VIAL IV PUSH ×2 (02:06→13:16)
[2022-01-13 02:19] LABS: NT Pro B Type Natriuretic Pept 6640 pg/mL (5-100); Troponin I 0.046 ng/mL (0.000-0.034)
--- NOTE | 2022-01-13 02:50 | PC.NURSE ---
Pt placed on 3L NC for CT, O2 saturations stable during scan. Pt placed back on Bipap upon arrival back in ED.
[2022-01-13] MEDS: ASPIRIN 81 MG CHEWABLE TABLET 324 MG PO (03:17)
--- NOTE | 2022-01-13 04:05 | ECG_ITS ---
Measurements Intervals [place] Rate: 87 P: 62 OR: 124 QRS: 51 QRSD: 84 T: 47 QT: 368 QTc: 445 Interpretive Statements SINUS RHYTHM POSSIBLE LEFT ATRIAL ENLARGEMENT [-0.1mV P WAVE IN V1/V2] COMPARED TO ECG 01/13/2022 01:41:39 SINUS RHYTHM NOW PRESENT REPLACING MULTIFOCAL ATRIAL TACHYCARDIA Electronically Signed On 01-13-2022 8:08:37 CDT by Ankit Bourne M.D.
--- NOTE | 2022-01-13 05:19 | ADMGEN ---
This patient, Curt Mcgregor, was admitted to IMU Room 232-01 on 01/13/22 at 0449. Patient/family oriented to hospital policies and general routines including ID bracelet, bed and alarms, visiting hours, pain management, procedures, bathroom and other care routines, personal items, smoking policy, room service/diet, and visiting hours. Information on how to activate the Rapid Response Team has been discussed. Patient/Family are encouraged to report perceived risks to care and to ask questions if they do not understand what they are told or what they should do.
--- NOTE | 2022-01-13 05:29 | PC.NURSE ---
PT receiving Adrucil 2,950 mcg IV on CADD pump ovewr 46hrs. Started Friday01/11/22 will be completed 01/13/22 @ 1000hrs. Daughter will be here to discontinue infusion and dispose of tubing.
[2022-01-13] MEDS: FUROSEMIDE INJ 40 MG/4 ML VIAL 20 MG IV PUSH ×2 (08:51→21:34)
--- NOTE | 2022-01-13 12:10 | PM.IMHP ---
H&P: HPI History of Present Illness Date/Time: 01/13/22 12:10 Patient reports shortness of breath is 100% better and she is back to baseline. Patient reports she is currently still smoking. Mild edema in her lower extremities. No chest pain shortness of breath currently or palpitations. Chief Complaint: Shortness of breath Review of Systems Review of Systems: All systems reviewed & are unremarkable except as noted in HPI and below Constitutional: Constitutional: Denies body ache(s), Denies chills, Denies excessive sweating, Denies fatigue, Denies fever(s), Denies headache(s), Denies lethargy, Denies malaise, Denies weakness and Denies weight loss Eyes: Eyes: Denies blurry vision, Denies change in vision and Denies loss of vision ENT: Denies dizziness, Denies ear discharge, Denies headache(s), Denies lip swelling, Denies epistaxis, Denies nasal congestion, Denies neck pain, Denies throat swelling and Denies tongue swelling Cardiovascular: Cardiovascular: Denies chest pain, Denies chest pain at rest, Denies chest pain with activity, Denies diaphoresis, Denies rapid heart rate, Denies edema, Denies irregular heart rhythm, Denies lightheadedness and Denies palpitations Respiratory: Respiratory: Denies chest congestion, Denies cough and Denies hemoptysis Gastrointestinal: Gastrointestinal: Denies abdominal pain, Denies melena, Denies hematochezia, Denies diarrhea, Denies nausea, Denies vomiting and Denies hematemesis Musculoskeletal: Musculoskeletal: Denies abnormal gait, Denies deformity, Denies joint swelling, Denies limited range of motion, Denies neck pain and Denies numbness Neurologic: Denies Abnormal speech present, Denies abnormal gait, Denies confusion, Denies dizziness, Denies headache(s), Denies focal weakness, Denies loss of vision, Denies numbness, Denies Other visual disturbances, Denies Sensory deficit (Neuro) and Denies weakness Psychiatric: Psychiatric: Denies confusion, Denies depression, Denies auditory hallucinations, Denies homicidal ideation and Denies suicidal ideation Endocrine: Endocrine: Denies cold intolerance, Denies excessive sweating, Denies fatigue, Denies heat intolerance and Denies palpitations Hematologic/Lymphatic: Hematologic/Lymphatic: Denies easy bleeding and Denies easy bruising Allergic/Immunologic: Allergic/Immunologic: Denies lip swelling, Denies throat swelling and Denies tongue swelling PMFSH Social History Social History Years smoked: 57 Smoking status: Current every day smoker Tobacco type: cigarettes Second hand tobacco smoke exposure: Yes Alcohol intake: never Substance use: never Substance use type: does not use Spiritual care concerns: No Meds Home Medications and Allergies Home Medications Medication Instructions Recorded Confirmed Type allopurinol 200 mg PO DAILY 01/13/22 01/13/22 History atorvastatin 20 mg PO DAILY 01/13/22 01/13/22 History calcitriol 0.25 mcg PO DAILY 01/13/22 01/13/22 History calcium carb,lactat-vitamin D3 2 tablet PO DAILY 01/13/22 01/13/22 History clopidogrel 75 mg PO DAILY 01/13/22 01/13/22 History cyanocobalamin (vitamin B-12) 1,000 mcg IM MONTHLY 01/13/22 01/13/22 History dexamethasone See Rx Instructions .ROUTE .COMPLEX 01/13/22 01/13/22 History ergocalciferol (vitamin D2) 50,000 unit PO DAILY 01/13/22 01/13/22 History losartan 50 mg PO DAILY 01/13/22 01/13/22 History metformin 500 mg PO DAILY 01/13/22 01/13/22 History ondansetron HCl 8 mg PO Q8H PRN 01/13/22 01/13/22 History Allergies Allergy/AdvReac Type Severity Reaction Status Date / Time Penicillins Allergy Rash Verified 01/13/22 05:49 Vital Signs Vital Signs - 24 hr 01/13/22 01:30 01/13/22 01:46 01/13/22 01:55 Temperature 98.0 F Pulse Rate 150 H 125 H Respiratory Rate 36 H 20 Blood Pressure 180/90 H Pulse Oximetry 99 100 100 01/13/22 02:09 01/13/22 02:10 01/13/22 02:15 Temperature Pulse Rate 125 H 122 H 120 H Respiratory Rate 24 H 20 20 Blood P
[2022-01-13 18:08] LABS: Glucose Point of Care 262 mg/dl (65-105)
[2022-01-13] MEDS: INSULIN ASPART (*BKC) 100 UNITS/ML SUB-Q (18:28)
[2022-01-13] MEDS: CENTRAL LINE FLUSH 10 ML IV PUSH ×2 (18:33→21:39)
[2022-01-13 20:00] LABS: Glucose Point of Care 171 mg/dl (65-105)
[2022-01-14] VITALS (12 sets, daily range): BP systolic 118–130; BP diastolic 57–85; PULSE 69–96; RESP 16–20; TEMP 36–36.6; O2SAT 94–100; BMI 19.2
--- NOTE | 2022-01-14 | ECHO_ITS ---
Patient Info Name: Curt Mcgregor Age: 81 years : 1940 Gender: Female Ht: 68 in Wt: 125 lbs BSA: 1.64 m2 HR: 89 bpm BP: 118 / 71 mmHg Heart Rhythm: Sinus Rhythm Technical Quality: Fair Exam Date: 01/14/2022 9:05 AM Exam Location: [facility] Patient Status: Inpatient Admit Date: 01/13/2022 Staff Ordering Physician: Ankit Padilla MD [employer] Model [employer] Maker: Shilpa Bradford RDCS Attending Provider: Benedicto Galvez MD Referring Physician: Randy MEDRANO; Exam Type: CA echo doppler color flow Study Info Indications - CHF Complete two-dimensional, color flow and Doppler transthoracic echocardiogram is performed. Summary 1. Complete two-dimensional, color flow and Doppler transthoracic echocardiogram is performed. 2. Left ventricular chamber dimension is moderately enlarged. 3. Left ventricular systolic function is moderately reduced, estimated at 35-40%. 4. Left atrial chamber dimension is severely enlarged. 5. There is mild mitral valve regurgitation. 6. There is small circumferential pericardial effusion. Left Ventricle Left ventricular chamber dimension is moderately enlarged. Left ventricular systolic function is moderately reduced, estimated at 35-40%. The left ventricular diastolic function is grade II diastolic dysfunction. Right Ventricle Right ventricular chamber dimension is normal. Left Atria Left atrial chamber dimension is severely enlarged. Right Atria Right atrial chamber dimension is normal. Aortic Valve The aortic valve is normal. Pulmonic Valve The pulmonic valve is not well visualized. Mitral Valve The mitral valve has normal leaflets. There is mild mitral valve regurgitation. Tricuspid Valve The tricuspid valve leaflets are normal. Pericardium/Pleural There is small circumferential pericardial effusion. Aorta The aortic root size at the sinus of Valsalva is normal. Left Ventricular Outflow Tract Name Value Normal LVOT 2D LVOT Diameter 2.0 cm LVOT Doppler LVOT Peak Gradient 3 mmHg LVOT Mean Gradient 1 mmHg LVOT VTI 16 cm LVOT VTI/AV VTI Ratio 0.7 LVOT Stroke Volume 48 ml LVOT CO 3.9 l/min LVOT CI 2.4 l/min/m2 Pulmonic Valve Name Value Normal RVOT Doppler RVOT Peak Gradient 2 mmHg PV Doppler PV Peak Gradient 2 mmHg Mitral Valve Name Value Normal MV Doppler
[2022-01-14 05:25] LABS: Anion Gap 5 mmol/L (8-16); Blood Urea Nitrogen 23 mg/dL (7-17); Calcium 7.8 mg/dL (8.4-10.2); Carbon Dioxide 31 mmol/L (22-30); Chloride 99 mmol/L (98-107); Estimated CRCL calculation 44 ml/min; Estimated Glomerular Filt Rate > 60; Glucose 132 mg/dL (65-110); Potassium 3.3 mmol/L (3.4-5.0); Sodium 135 mmol/L (137-145)
[2022-01-14 05:31] LABS: NT Pro B Type Natriuretic Pept 5500 pg/mL (5-100)
--- NOTE | 2022-01-14 06:56 | PC.NURSE ---
R Chest Port a Cath assessed dressing and caps remain intact no dressing or cap change needed at this time. Pt. refuses flush to check patency.
[2022-01-14 07:59] LABS: Glucose Point of Care 140 mg/dl (65-105)
[2022-01-14] MEDS: ERGOCALCIFEROL 50,000 UNIT CAPSULE 50000 UNITS PO (09:36)
[2022-01-14] MEDS: allopurinoL 100 MG TABLET 200 MG PO (09:36)
[2022-01-14] MEDS: calcitrioL 0.25 MCG CAPSULE PO (09:36)
[2022-01-14] MEDS: DEXAMETHASONE 4 MG TABLET 8 MG BY MOUTH (09:37)
[2022-01-14] MEDS: ATORVASTATIN 20 MG TABLET PO (09:37)
[2022-01-14] MEDS: CLOPIDOGREL BISULFATE 75 MG TABLET PO (09:37)
[2022-01-14] MEDS: LOSARTAN POTASSIUM 50 MG TABLET PO (09:37)
[2022-01-14] MEDS: FUROSEMIDE INJ 40 MG/4 ML VIAL 20 MG IV PUSH (09:38)
[2022-01-14 12:05] LABS: Glucose Point of Care 213 mg/dl (65-105)
[2022-01-14] MEDS: INSULIN ASPART (*BKC) 100 UNITS/ML SUB-Q ×2 (12:36→17:03)
--- NOTE | 2022-01-14 15:15 | PM.IMPN ---
Progress Note: A&P Assessment and Plan (1) Acute respiratory failure with hypoxia: Code(s): J96.01 - Acute respiratory failure with hypoxia Status: Acute Assessment and Plan: Likely secondary to CHF exacerbation. Unknown type. Echocardiogram has been ordered. Respiratory status is now back to baseline after Lasix. Monitor. Ten the patient is also smoking but does not have any wheezing on examination. (2) CHF (congestive heart failure): Code(s): I50.9 - Heart failure, unspecified Status: Acute Assessment and Plan: Will give dose of IV Lasix. Echocardiogram ordered. Trend BNP and electrolytes. Overall she is much improved today after Lasix. (3) Gout: Code(s): M10.9 - Gout, unspecified Status: Acute Assessment and Plan: And continue home meds (4) Hyperlipidemia: Code(s): E78.5 - Hyperlipidemia, unspecified Status: Acute Assessment and Plan: Continued home meds (5) History of colon cancer: Code(s): Z85.038 - Personal history of other malignant neoplasm of large intestine Status: Acute Assessment and Plan: Patient is undergoing chemotherapy. Follow up Oncology (6) Hypertension: Code(s): I10 - Essential (primary) hypertension Status: Acute Assessment and Plan: Continue home meds (7) Diabetes: Code(s): E11.9 - Type 2 diabetes mellitus without complications Status: Acute Assessment and Plan: Sliding scale insulin Subjective Date/time seen: 01/14/22 15:15 Review of Systems Review of Systems: All systems reviewed & are unremarkable except as noted in HPI and below Objective Data Vital Signs Vital Signs: Vital Signs - 24 hr 01/13/22 16:00 01/13/22 18:00 01/13/22 20:00 Temperature 98.1 F 97.6 F Pulse Rate 85 103 H 117 H Respiratory Rate 16 16 Blood Pressure 126/80 124/60 Pulse Oximetry 97 98 01/13/22 22:00 01/13/22 23:35 01/14/22 00:00 Temperature 97.9 F Pulse Rate 100 101 H 77 Respiratory Rate 16 Blood Pressure 122/65 Pulse Oximetry 92 01/14/22 02:00 01/14/22 02:20 01/14/22 04:00 Temperature 97.6 F Pulse Rate 82 82 95 Respiratory Rate 16 Blood Pressure 118/71 Pulse Oximetry 94 94 01/14/22 06:00 01/14/22 08:06 01/14/22 12:24 Temperature 97.3 F L 96.8 F L Pulse Rate 89 96 81 Respiratory Rate 18 20 Blood Pressure 130/64 124/57 L Pulse Oximetry 98 100 Intake/Output Intake/Output: Intake & Output 01/11/22 01/12/22 01/13/22 01/14/22 23:59 23:59 23:59 23:59 Intake Total 1050 240 Output Total 1100 950 Balance -50 -710 Meds/Results Medications: Active Medications Generic Name Dose Route Start Last Admin Trade Name Freq PRN Reason Stop Dose Admin Allopurinol 200 mg 01/14/22 09:00 01/14/22 09:36 Allopurinol 100 Mg Tablet PO 200 mg DAILY LASHON Administration Atorvastatin Calcium 20 mg 01/14/22 09:00 01/14/22 09:37 Atorvastatin 20 Mg Tablet PO 20 mg DAILY LASHON Administration Calcitriol 0.25 mcg 01/14/22 09:00 01/14/22 09:36 Calcitriol 0.25 Mcg Capsule PO 0.25 mcg DAILY LASHON Administration Calcium Carbonate 500 mg 01/14/22 09:00 01/14/22 10:47 Calcium/Vitamin D 500 Mg Tablet PO 500 mg QAM LASHON Administration Clopidogrel Bisulfate 75 mg 01/14/22 09:00 01/14/22 09:37 Clopidogrel Bisulfate 75 Mg Tablet PO 75 mg DAILY LASHON Administration Dexamethasone 8 mg 01/14/22 09:00 01/14/22 09:37 Dexamethasone 4 Mg Tablet BY MOUTH 01/15/22 09:01 8 mg DAILY LASHON Administration Dextrose 12.5 gm 01/13/22 12:14 Dextrose 50% 25 Gm/50 Ml Syringe IV PUSH PRN PRN Hypoglycemia Protocol Ergocalciferol 50,000 unit 01/14/22 09:00 01/14/22 09:36 Ergocalciferol 50,000 Unit Capsule PO 50,000 unit Mo@0900 LASHON Administration Furosemide 20 mg 01/13/22 09:00 01/14/22 09:38 Furosemide Inj 40 Mg/4 Ml Vial IV PUSH 20 mg Q12HR LASHON Administr
[2022-01-14] MEDS: POTASSIUM CHLORIDE 20 MEQ TABLET 40 MEQ PO (15:34)
[2022-01-14 16:32] LABS: Glucose Point of Care 244 mg/dl (65-105)
--- NOTE | 2022-01-14 17:25 | PM.DS ---
DS: Admitting Diagnosis Discharge Date 01/14/2022 Admitting Diagnosis shortness of breath DS: Discharge Diagnosis Discharge Diagnosis (1) Acute respiratory failure with hypoxia: Code(s): J96.01 - Acute respiratory failure with hypoxia Status: Acute Assessment and Plan: initially needing BIPAP placement. now off with diuresis all resolved. Likely secondary to CHF exacerbation.ECHO with ef 35-40%. which has worsened since last ECHO which was in 08/2021. ef was 50-55%. patient and family opting for going home today. discussed finding with the daughter. she is back to her baseline. not requirng any oxygen currently. will place on lasix with k supplement. cardiomyopathy whether there is tachycardia related is suspected. will add coreg 3.125 mg po bid for rate control. she has been getting intermittent tachycrdaic and this might have led to this chf as well. she will follow up with dr. Bourne in short period after discharge suggested to discuss with him regarding this. she also have mild empysema in her lungs. (2) CHF (congestive heart failure): Code(s): I50.9 - Heart failure, unspecified Status: Acute Assessment and Plan: received iv lasix. Echocardiogram reviewed. Trend BNP and electrolytes. Overall she is much improved today after Lasix. will place [facility] (3) Gout: Code(s): M10.9 - Gout, unspecified Status: Acute Assessment and Plan: And continue home meds (4) Hyperlipidemia: Code(s): E78.5 - Hyperlipidemia, unspecified Status: Acute Assessment and Plan: Continued home meds (5) History of colon cancer: Code(s): Z85.038 - Personal history of other malignant neoplasm of large intestine Status: Acute Assessment and Plan: Patient is undergoing chemotherapy. Follow up Oncology (6) Hypertension: Code(s): I10 - Essential (primary) hypertension Status: Acute Assessment and Plan: Continue home meds (7) Diabetes: Code(s): E11.9 - Type 2 diabetes mellitus without complications Status: Acute Assessment and Plan: Sliding scale insulin (8) Cardiomyopathy: Code(s): I42.9 - Cardiomyopathy, unspecified Status: Acute Assessment and Plan: newly diagnsoed. will add medical therapy, as patient and family wants to get home and wants to do minimal intervention at this point. will place on bb, she is already on losartan. add Lasix therapy with k supplement DS: Summary Hospital Course Hospital Course: see above. Time Spent with Patient Time attestation: Total time spent providing and/or coordinating discharge services:55 mins DS: Data Data Completed and Pending Labs on day of discharge: Labs from last 24 hours 01/14/22 01/14/22 01/14/22 16:30 12:01 07:56 Sodium Potassium Chloride Carbon Dioxide Anion Gap BUN Creatinine Estim Creat Clear Calc Estimated GFR Glucose POC Capillary Glucose 244 H 213 H 140 H Calcium Troponin I NT-Pro-B Natriuret Pep 01/14/22 01/13/22 01/13/22 05:06 20:40 19:57 Sodium 135 L Potassium 3.3 L Chloride 99 Carbon Dioxide 31 H Anion Gap 5 L BUN 23 H Creatinine 0.80 Estim Creat Clear Calc 44 Estimated GFR > 60 Glucose 132 H POC Capillary Glucose 171 H Calcium 7.8 L Troponin I 0.050 H* NT-Pro-B Natriuret Pep 5500 H 01/13/22 18:04 Sodium Potassium Chloride Carbon Dioxide Anion Gap BUN Creatinine Estim Creat Clear Calc Estimated GFR Glucose POC Capillary Glucose 262 H Calcium Troponin I NT-Pro-B Natriuret Pep Preliminary micro results at discharge 01/13/22 02:12 Blood Culture - Preliminary Blood 01/13/22 02:12 Blood Culture - Preliminary Blood Imaging Radiologist's impression: ITS Impressions Chest X-Ray 01/13/22 08:04 IMPRESSION: 1. Bilateral basilar predominant lung disease most lik
== END 2022-01-14 18:30 | disposition home or self-care (01) | DRG 291 ==
LOC: ANHED 04:05 → ANHIMU 04:13
PROVIDERS: Chiropractor; Admitting Provider Internal Medicine; Emergency Provider Emergency Medicine; PCP Internal Medicine; Visit Provider Internal Medicine
DX: I11.0 Hypertensive heart disease with heart failure (principal); J96.01 Acute respiratory failure with hypoxia; I50.43 Acute on chronic combined systolic (congestive) and diastolic (congestive) heart failure; C18.9 Malignant neoplasm of colon, unspecified; I42.9 Cardiomyopathy, unspecified; R00.0 Tachycardia, unspecified; M10.9 Gout, unspecified; E78.5 Hyperlipidemia, unspecified; E11.9 Type 2 diabetes mellitus without complications; J44.9 Chronic obstructive pulmonary disease, unspecified; F17.210 Nicotine dependence, cigarettes, uncomplicated
CPT/HCPCS: 36415; 36600; 71045; 71275; 80048; 80053; 82805; 82948; 83880; 84484; 85025; 85380; 85610; 85730; 87040; 87804; 93005; 93306; 94002; 94640; 96374; 96375; 99285; A9270; J1642; J1815; J1940; J2930; J8540; Q9967

== ENCOUNTER 2022-01-15 07:06 | Inpatient (IN) | payer MEDICARE, SELFPAY ==
[2022-01-15] VITALS (33 sets, daily range): BP systolic 87–148; BP diastolic 53–126; PULSE 77–129; RESP 16–30; TEMP 36.1–36.8; O2SAT 90–100; BMI 17.2
--- NOTE | 2022-01-15 07:16 | ECG_ITS ---
Measurements Intervals [place] Rate: 129 P: MO: 0 QRS: 70 QRSD: 87 T: 0 QT: 295 QTc: 433 Interpretive Statements Paroxysmal supraventricular tachycardia TERMINATING IN NORMAL SINUS RHYTHM WITH SHORT MO INTERVAL NONSPECIFIC ST & T-WAVE ABNORMALITY ABNORMAL RHYTHM ECG COMPARED TO ECG 09/19/2021 10:47:38 PSVT NOW PRESENT T-WAVE ABNORMALITY NOW PRESENT Electronically Signed On 01-16-2022 13:26:26 CDT by Laura Gaming M.D.
[2022-01-15 07:48] LABS: Base Excess ABG 1.7 mEq/l (+/-2.0); Fractional Inspired Oxygen 21 %; Oxygen Content ABG 9.4 %vol (16.0-22.0); Oxygen Saturation ABG 98.1 % (95.0-100.0); Oxyhemoglobin 94.9 % THb (90.0-100.0); PCO2 ABG 27.8 mmHg (35.0-45.0); PO2 ABG 94.4 mmHg (80.0-100.0)
[2022-01-15 07:51] LABS: pH ABG 7.554 (7.350-7.450)
[2022-01-15] MEDS: ONDANSETRON INJ 4 MG/2 ML VIAL 8 MG IV PUSH (07:51)
[2022-01-15 07:52] LABS: Total Hemoglobin 6.9 g/dL (12.0-18.0)
--- NOTE | 2022-01-15 07:55 | PC.NURSE ---
Approx 500 ml coffee ground emesis. ERP aware.
--- NOTE | 2022-01-15 07:59 | PC.NURSE ---
Refused further blood draws. ERP aware.
--- NOTE | 2022-01-15 08:18 | ED.AMS ---
HPI - Altered Mental Status General Chief Complaint: Altered Mental Status Stated Complaint: altered mental status Time Seen by Provider: 01/15/22 07:22 Source: family and EMS Mode of arrival: EMS Limitations: clinical condition History of Present Illness HPI narrative: Patient is 81 years old white female lives with her granddaughter who brought her to the emergency room because of shortness of breath and near syncope/syncope last night. Patient went to the bathroom and had a large bowel movement, probably dark. In the ED patient been vomiting coffee-ground material. Patient was discharged from our hospital yesterday Related Data Home Medications Medication Instructions Recorded Confirmed atorvastatin 20 mg PO DAILY 06/20/20 09/19/21 calcitriol 0.25 mcg PO DAILY 06/20/20 09/19/21 clopidogrel 75 mg PO DAILY 06/20/20 09/19/21 cyanocobalamin (vitamin B-12) 1,000 mcg IM WEEKLY 06/20/20 09/19/21 ergocalciferol (vitamin D2) 1,250 mcg PO WEEKLY 06/20/20 09/19/21 losartan 50 mg PO DAILY 06/20/20 09/19/21 metformin 1,000 mg PO BID 06/20/20 09/19/21 allopurinol 100 mg PO BID 09/19/21 09/19/21 mirtazapine 15 mg PO DAILY 09/19/21 09/19/21 ondansetron HCl 8 mg PO Q6H 09/19/21 09/19/21 oxycodone-acetaminophen 5 tablet PO BID PRN 09/19/21 09/19/21 trazodone 50 mg PO QPM 09/19/21 09/19/21 aspirin 325 mg PO DAILY 01/15/22 ferrous sulfate 325 mg PO DAILY 01/15/22 prochlorperazine maleate 10 mg Q6H PRN 01/15/22 Allergies Allergy/AdvReac Type Severity Reaction Status Date / Time Penicillins Allergy Unknown Rash Verified 01/15/22 07:45 Review of Systems Review of Systems: All systems reviewed & are unremarkable except as noted in HPI and below PMFSH Past Medical History Medical History Chronic obstructive pulmonary disease Colon cancer Coronary artery disease History of [place] in 1992. Diabetic peripheral neuropathy History of Jackson's palsy Hyperlipidemia Hypertension Irritable bowel syndrome Peripheral vascular disease Tobacco dependence Type 2 diabetes mellitus Surgical History Surgical History History of appendectomy History of cardiac catheterization (1992) History of lumbar surgery History of vascular surgery (2001) Infrarenal abdominal aortic angioplasty with stent placement. Family History Family History Mother Family history of cardiovascular disease Father Family history of lung cancer Sibling Family history of lung cancer Family history of throat cancer Family history of Hodgkin's lymphoma Social History Social History Social History: Surrogate decision maker: Anum Santiago, daughter. Code status: Do not resuscitate. Smoking packs per day: 0.5 Smoking cigarettes per day: 10.0 Years smoked: 55 Smoking pack-years: 27.50 Smoking status: Current some day smoker Second hand tobacco smoke exposure: Yes Alcohol intake: current Drinks per week: 1 Substance use: never Substance use type: does not use Additional living arrangements comments: The patient lives in [place]. I believe her granddaughter lives with her. Additional occupation/education comments: Retired. Gender identity (if verbalized by the patient): Female Spiritual care concerns: No Exam Narrative: General appearance: Well-developed, well-nourished Skin: Pale Head: Normocephalic, nontraumatic Eyes: Clear conjunctiva ENT: Oropharynx normal, ears normal, nose normal Neck: Supple, nontender Chest and respiratory: Airway patent, no respiratory distress, no accessory muscle use Heart: Regular rate/rhythm Abdomen: Soft, nontender, no organomegaly, quiet bowel sounds, rectal exam, and black tarry stool, guaiac positive Vascular: Normal peripheral pulses, normal capillary refill. Musculoskeletal: Normal ran
[2022-01-15] MEDS: PANTOPRAZOLE SODIUM IV 40 MG VIAL IV PUSH (08:36)
[2022-01-15 08:37] LABS: Basophils Percent Auto 0.1 % (0.2-1.2); Immature Granulocyte Percent A 1.1 % (0-0.5); Lymphocytes Absolute Auto 1.02 K/mm3 (0.9-3.2); Lymphocytes Percent Auto 11.2 % (18.3-44.2); Mean Corpuscular HGB Conc 31.4 g/dl (32-36); Mean Corpuscular Hemoglobin 34.7 pg (26-34); Mean Corpuscular Volume 110.6 fl (80-100); Monocytes Absolute Auto 0.2 K/mm3 (0.1-0.6); Monocytes Percent Auto 2.3 % (2.6-8.5); Neutrophils Absolute Auto 7.8 K/mm3 (1.3-6.7); Neutrophils Percent Auto 85.3 % (45.5-73.1); Platelet Count Result 182 k/mm3 (150-375); Red Cell Distribution Width 18.2 % (11.5-14.5); White Blood Count 9.1 K/mm3 (4.5-10.0)
[2022-01-15 08:40] LABS: Hematocrit 18.8 % (37.0-47.0); Hemoglobin 5.9 g/dL (12.0-15.0)
[2022-01-15 08:48] LABS: INR 1.3
[2022-01-15 08:49] LABS: Partial Thromboplastin Time 21.5 SECONDS (22.3-36.8)
[2022-01-15 08:50] LABS: Alanine Aminotransferase 17 U/L (4-35); Albumin Level 2.7 g/dL (3.5-5.1); Alkaline Phosphatase 43 U/L (38-126); Anion Gap 8 mmol/L (8-16); Aspartate Amino Transferase 20 U/L (14-36); Bilirubin,Total 0.6 mg/dL (0.2-1.3); Blood Urea Nitrogen 55 mg/dL (7-17); Calcium 7.5 mg/dL (8.4-10.2); Carbon Dioxide 29 mmol/L (22-30); Chloride 99 mmol/L (98-107); Estimated CRCL calculation 40 ml/min; Estimated Glomerular Filt Rate 60; Glucose 255 mg/dL (65-110); Potassium 4.1 mmol/L (3.4-5.0); Sodium 136 mmol/L (137-145)
[2022-01-15 08:57] LABS: NT Pro B Type Natriuretic Pept 3630 pg/mL (5-100)
--- NOTE | 2022-01-15 09:26 | PC.NURSE ---
To ICU per cart. NS from EMS infusing.
--- NOTE | 2022-01-15 09:27 | ADMIMU ---
This patient, Curt Mcgregor, was admitted to IMU status, and placed in Intensive Care Unit-4. Patient/family oriented to hospital policies and general routines including ID bracelet, bed and alarms, visiting hours, pain management, procedures, bathroom and other care routines, personal items, smoking policy, room service/diet, and visiting hours. Valuables list has been completed. Information on how to activate the Rapid Response Team has been discussed. Patient/Family are encouraged to report perceived risks to care and to ask questions if they do not understand what they are told or what they should do.
[2022-01-15] MEDS: SODIUM CHLORIDE 0.9% IV 250 ML 30 ML IV CONT (10:45)
--- NOTE | 2022-01-15 12:21 | WPDGICN ---
Assessment and Plan Assessment and plan (1) UGIB (upper gastrointestinal bleed): Code(s): K92.2 - Gastrointestinal hemorrhage, unspecified Status: Acute Assessment and Plan: she is in ICU, getting blood transfusion, iv protonix will proceed with egd tomorrow, probably ulcer, esophagitis, etc keep hb>7 denies previous h/o GIB hold plavix (2) Acute on chronic blood loss anemia: Code(s): D62 - Acute posthemorrhagic anemia Status: Acute Assessment and Plan: transfusion keep hb>7 (3) Melena: Code(s): K92.1 - Melena Status: Acute Assessment and Plan: egd iv protonix (4) CHF (congestive heart failure): Code(s): I50.9 - Heart failure, unspecified Status: Acute Assessment and Plan: recently discharged (5) Colon cancer metastasized to liver: Code(s): C18.9 - Malignant neoplasm of colon, unspecified; C78.7 - Secondary malignant neoplasm of liver and intrahepatic bile duct Status: Acute Assessment and Plan: still on chemotherapy family discussed with oncologist and recommend to hold avastin as outpatient (6) Hypertension: Code(s): I10 - Essential (primary) hypertension Status: Acute GI Consult Note Consult date/time: 01/15/22 12:21 Reason for consult: melena, coffee ground emesis HPI: Curt Mcgregor is a 81 year old female with history of stage IV colon cancer last year after she had her first colonoscopy because abdominal pain, she has been getting chemotherapy at [facility] [place] since October last dose just few days ago (she was not a candidate to surgery, also had liver lesion). She was just discharged from here with CHF exacerbation 2 days ago, also on plavix. She went home and her daugther who is a nurse stayed with her that night, patient had abdominal discomfort with near syncopal episode then had dark stool and also coffee ground emesis. Denies previous history of GIB, never had EGD. Hb 5.9 (it was 9 few days ago). Admitted to ICU, she is getting blood transfusion now. She is comfortable otherwise with her daughter at bedside. Review of Systems Constitutional: Constitutional: Reports weakness Eyes: Eyes: Denies blurry vision ENT: Reports Normal hearing present Cardiovascular: Cardiovascular: Denies chest pain Respiratory: Respiratory: Denies cough Gastrointestinal: Gastrointestinal: Reports melena and Reports hematemesis Genitourinary: Genitourinary: Denies hematuria Musculoskeletal: Musculoskeletal: Denies back pain Integumentary/Breasts: Skin/Breast: Denies dry skin Neurologic: Denies headache(s) Psychiatric: Psychiatric: Denies behavioral changes [facility] Past Medical History Medical History (Updated 01/15/22 @ 12:34 by Ryan Monae MD) Acute on chronic blood loss anemia Chronic obstructive pulmonary disease Colon cancer Colon cancer metastasized to liver Coronary artery disease History of [place] in 1992. Diabetic peripheral neuropathy History of Jackson's palsy Hyperlipidemia Hypertension Irritable bowel syndrome Melena Peripheral vascular disease Tobacco dependence Type 2 diabetes mellitus UGIB (upper gastrointestinal bleed) Surgical History Surgical History (System 01/15/22 @ 11:25 by Joe Hopper) History of appendectomy History of cardiac catheterization (1992) History of lumbar surgery History of vascular surgery (2001) Infrarenal abdominal aortic angioplasty with stent placement. Family History Family History Mother Family history of cardiovascular disease Father Family history of lung cancer Sibling Family history of lung cancer Family history of throat cancer Family history of Hodgkin's lymphoma Social History Social History (System 01/15/22 @ 11:25 by Joe Hopper) Social History: Surrogate decision maker: Anum Santiago, daughter. Code status: Do not resuscitate. Smoking packs per
--- NOTE | 2022-01-15 12:40 | PM.IMHP ---
H&P: HPI History of Present Illness Date/Time: Patient requires inpatient monitoring with expected length of stay to exceed 2 midnights for management of care. 01/15/22 12:40 Chief Complaint: Altered mental status Narrative: Ms. Mcgregor is an 81-year-old female who presented emergency room with altered mental status. Patient's daughter is at bedside and is helping with the events of the evening that brought the patient to the hospital. Patient currently lives with her granddaughter and does receive assistance from both of her daughters. Patient was discharged yesterday after having an episode of congestive heart failure. During that hospitalization patient was noted have a left ventricular systolic function of 35-40%. Patient states that she was doing fine and then last night in the middle the night she started calling for her daughter because she needed to have a bowel movement. Patient's daughter states that the patient was acting very different and was staring off into space at times. Patient states she does not recall any of these events occurring. Patient's daughter states that she did get the patient up to the bathroom and she had a very large bowel movement that did have some coffee-ground looking stool on top of her large bowel movement. Patient's daughter states EMS was then called and patient was transported to the hospital. While in the emergency room patient did vomit 1 time and it was coffee-ground in nature. Patient also had a Hemoccult performed which was positive. At this point time patient is denying any complaints. Patient denies any shortness breast, lightheadedness, dizziness, syncopal, or near syncopal episodes. Patient denies any chest discomfort or palpitations. Patient denies any abdominal pain. Upon evaluation in emergency room patient was noted to have a hemoglobin of 5.9 and hematocrit of 18.8. Patient does complain of having a cough with a dark sputum. Patient has a known history of colon cancer for which she receives chemotherapy and her last treatment was on FridayJanuary 11. Patient also has a known history of paroxysmal atrial fibrillation, recent C difficile while hospitalized for pneumonia, myocardial infarction in 1996, CAD status post stent placement, and abdominal aortic stent. Patient has been on Plavix since the late . Patient's daughter states she did call patient's oncologist with all these above complaints and he states he will be stopping her Avastin because this could be the cause of her issues at this time. Review of Systems Review of Systems: A 12 point review of systems was completed patient all pertinent positive and negative per HPI the remainder are unremarkable. FORMERLY [facility], [facility] Past Medical History Medical History (Updated 01/15/22 @ 12:50 by Socorro Santamaria APRN) Acute on chronic blood loss anemia Chronic obstructive pulmonary disease Colon cancer Colon cancer metastasized to liver Coronary artery disease History of [place] in 1992. Diabetic peripheral neuropathy History of Jackson's palsy Hyperlipidemia Hypertension Irritable bowel syndrome Melena Peripheral vascular disease Tobacco dependence Type 2 diabetes mellitus UGIB (upper gastrointestinal bleed) Surgical History Surgical History (System 01/15/22 @ 11:25 by Joe Hopper) History of appendectomy History of cardiac catheterization (1992) History of lumbar surgery History of vascular surgery (2001) Infrarenal abdominal aortic angioplasty with stent placement. Family History Family History Mother Family history of cardiovascular disease Father Family history of lung cancer Sibling Family history of lung cancer Family history of throat cancer Family history of Hodgkin's lymphoma Social History Social History (System 01/15/22 @ 11:25 by Joe Hopper) Social History: Surrogate decision maker: Anum Santiago, daughter. Code status: Do not resuscitate. [place]
[2022-01-15 12:41] LABS: Add Urine Microscopic? YES; Appearance Urine Clear (Clear); Bacteria Urine Trace /hpf; Bilirubin Urine Negative (Negative); Blood Urine 2+ (Negative); Color Urine Yellow (Yellow); Glucose Urine UA Negative (Negative); Ketones Urine Negative (Negative); Leukocyte Esterase Ur Negative LEU/UL (Negative); Nitrate Urine Negative (Negative); Protein Urine Negative (Negative); RBC Urine 0-2 /hpf (0-2); Specific Grav Ur 1.018 (1.001-1.035); Squamous Epithelial Cell Urine Few /hpf (Few); Urobilinogen Urine Negative mg/dL (<2.0); WBC Urine 0-3 /hpf
--- NOTE | 2022-01-15 13:01 | PDONCCN ---
HPI - Date of Consult Date/Time: 01/15/22 13:01 Requesting Physician: Guillermo Winston MD Primary Care Provider: Axel Singleton, - Consult Narrative Reason for consult: Metastatic colon cancer Narrative: Curt Mcgregor is a 81 year old female with diagnosis of metastatic colon cancer with liver and peritoneal involvement. Patient has been on chemotherapy with FOLFOX Avastin regimen and so far has received 3 rounds of chemotherapy with dose reduction. Her last chemotherapy was last Friday. She was brought into the hospital due to shortness of breath as well as near syncopal episode. She woke up morning of the admission and had a large bowel movement with dark stool. She was looking pale and was taken to the ER. Labs showed hemoglobin of 5.9. She was also on Plavix for history of coronary artery disease status post stent placement in 1995. She is currently receiving blood transfusion and already started feeling better. Review of Systems - Review of Systems All systems reviewed & are unremarkable except as noted in HPI and bel - Neurologic Reports hearing normal, Reports weakness, Denies behavioral changes, Denies headache(s) COUNT INCLUDES THE [facility] Medical History: Medical History (This Medical Record has been edited. Action required.) Acute on chronic blood loss anemia Chronic obstructive pulmonary disease Colon cancer Colon cancer metastasized to liver Coronary artery disease History of [place] in 1992. Diabetic peripheral neuropathy History of Jackson's palsy Hyperlipidemia Hypertension Irritable bowel syndrome Melena Peripheral vascular disease Tobacco dependence Type 2 diabetes mellitus UGIB (upper gastrointestinal bleed) Surgical History: Surgical History (This Medical Record has been edited. Action required.) History of appendectomy History of cardiac catheterization Onset Date: 1992 History of lumbar surgery History of vascular surgery Onset Date: 2001 Infrarenal abdominal aortic angioplasty with stent placement. Family History: Family History (This Medical Record has been edited. Action required.) Mother Family history of cardiovascular disease Father Family history of lung cancer Sibling Family history of lung cancer Family history of throat cancer Family history of Hodgkin's lymphoma - Social History Social History: Social History (This Medical Record has been edited. Action required.) Gender Identity: Gender identity (if verbalized by the patient): Female Alcohol Use: Alcohol intake: never Drinks per week: 1 Substance Use: Substance use: never Substance use type: does not use Others: Spiritual care concerns: No Smoking Status: Smoking status: Current every day smoker Tobacco type: cigarettes Second hand tobacco smoke exposure: Yes Smoking Pack-years: Smoking packs per day: 0.5 Smoking cigarettes per day: 2 Years smoked: 57 Smoking pack-years: 5.70 Meds Home Medications Medication Instructions Recorded Confirmed Type atorvastatin 20 mg PO DAILY 06/20/20 01/15/22 History calcitriol 0.25 mcg PO DAILY 06/20/20 01/15/22 History clopidogrel 75 mg PO DAILY 06/20/20 01/15/22 History cyanocobalamin (vitamin B-12) 1,000 mcg IM MONTHLY 06/20/20 01/15/22 History ergocalciferol (vitamin D2) 1,250 mcg PO WEEKLY 06/20/20 01/15/22 History losartan 50 mg PO DAILY 06/20/20 01/15/22 History metformin 500 mg PO BID 06/20/20 01/15/22 History allopurinol 100 mg PO BID 09/19/21 01/15/22 History ondansetron HCl 8 mg PO BID 09/19/21 01/15/22 History allopurinol 200 mg PO DAILY 01/13/22 01/13/22 History atorvastatin 20 mg PO DAILY 01/13/22 01/13/22 History calcitriol 0.25 mcg PO DAILY 01/13/22 01/13/22 History calcium carb,lactat-vitamin D3 2 tablet PO DAILY 01/13/22 01/13/22 History clopidogrel 75 mg PO DAILY 01/13/22 01/13/22 History cyanocobalamin (vitamin B-12) 1,000 mcg IM MONTHLY 01/13/22 01/13/22 History dexametha
--- NOTE | 2022-01-15 14:00 | PCNSR ---
On 01/15/22, the student, Florina Razo, provided care and completed [facility] documentation on this patient. I have reviewed the student's documentation and agree with the findings.
[2022-01-15] MEDS: FUROSEMIDE INJ 40 MG/4 ML VIAL 20 MG IV PUSH (14:12)
[2022-01-15] MEDS: CENTRAL LINE FLUSH 10 ML IV PUSH ×2 (14:13→22:03)
--- NOTE | 2022-01-15 18:50 | PC.NURSE ---
This patient, Curt Mcgregor, was transferred to [[id number]] on 01/15/22 at 1850. Personal belongings sent with patient. Report given to [Suad DOZIER ]. Appropriate documentation sent with patient.
[2022-01-15 21:22] LABS: Hematocrit 26.9 % (37.0-47.0); Hemoglobin 8.9 g/dL (12.0-15.0)
[2022-01-16] VITALS (20 sets, daily range): BP systolic 122–149; BP diastolic 53–82; PULSE 64–91; RESP 16–25; TEMP 36–36.8; O2SAT 99–100
[2022-01-16 03:34] LABS: Basophils Percent Auto 0.4 % (0.2-1.2); Eosinophils Absolute Auto 0.1 K/mm3 (0-0.3); Hematocrit 27.1 % (37.0-47.0); Hemoglobin 8.9 g/dL (12.0-15.0); Immature Granulocyte Absolute 0.03 K/mm3 (0.00-0.031); Immature Granulocyte Percent A 0.4 % (0-0.5); Lymphocytes Absolute Auto 2.56 K/mm3 (0.9-3.2); Lymphocytes Percent Auto 37.8 % (18.3-44.2); Mean Corpuscular HGB Conc 32.8 g/dl (32-36); Mean Corpuscular Hemoglobin 31.2 pg (26-34); Mean Corpuscular Volume 95.1 fl (80-100); Mean Platelet Volume 10.9 fl (7.4-10.4); Monocytes Absolute Auto 0.2 K/mm3 (0.1-0.6); Monocytes Percent Auto 3.4 % (2.6-8.5); Neutrophils Absolute Auto 3.9 K/mm3 (1.3-6.7); Platelet Count Result 131 k/mm3 (150-375); Red Blood Count 2.85 M/mm3 (4.2-5.4); Red Cell Distribution Width 20.7 % (11.5-14.5); White Blood Count 6.8 K/mm3 (4.5-10.0)
[2022-01-16 04:24] LABS: Anion Gap 1 mmol/L (8-16); Blood Urea Nitrogen 44 mg/dL (7-17); Calcium 7.4 mg/dL (8.4-10.2); Carbon Dioxide 30 mmol/L (22-30); Chloride 106 mmol/L (98-107); Estimated CRCL calculation 45 ml/min; Estimated Glomerular Filt Rate > 60; Glucose 118 mg/dL (65-110); Magnesium 1.6 mg/dL (1.6-2.3); Potassium 3.3 mmol/L (3.4-5.0); Sodium 137 mmol/L (137-145)
[2022-01-16] MEDS: CENTRAL LINE FLUSH 10 ML IV PUSH ×3 (04:33→20:14)
[2022-01-16 08:04] LABS: Device ROOM AIR
[2022-01-16] MEDS: PANTOPRAZOLE SODIUM IV 40 MG VIAL IV PUSH ×2 (10:21→20:14)
--- NOTE | 2022-01-16 11:41 | PM.IMPN ---
Progress Note: A&P Additional Plan (1) UGIB (upper gastrointestinal bleed) with Acute blood loss anemia: Code(s): K92.2 - Gastrointestinal hemorrhage, unspecified Status: Acute Assessment and Plan: Gastroenterology has been consulted and due appreciating further recommendations. Patient has been placed on a clear liquid diet and will be kept NPO after midnight for possible EGD. At this point in time patient will be given 2 units of packed red blood cells. Patient will have Lasix 20 mg in between each unit and hemoglobin and hematocrit will be checked 1 hour after the 2nd unit of blood. Patient is on IV PPI. Will hold patient's Plavix since patient has not had any recent procedures or stents. -Hb of 8.9 today from 5.9 on admission. -GI plans for EGD today. (2) Colon cancer metastasized to liver: Code(s): C18.9 - Malignant neoplasm of colon, unspecified; C78.7 - Secondary malignant neoplasm of liver and intrahepatic bile duct Status: Acute Assessment and Plan: Patient's daughter has spoken with patient's oncologist at [facility], and he states that he is going to stop her Avastin. Will defer all colon cancer treatment to Oncology. (3) CHF (congestive heart failure): Code(s): I50.9 - Heart failure, unspecified Status: Acute Assessment and Plan: Patient did have a recent episode of congestive heart failure so her intake and output will need to be monitored very closely. Will place patient on strict I&O. Patient will be receiving Lasix 20 mg in between her 2 units of packed red blood cells. Will have to monitor patient very closely on intake output since she did have a recent episode of congestive heart failure was discharged home yesterday for her congestive heart failure episode. (4) Hypotension: Code(s): I95.9 - Hypotension, unspecified Status: Acute Assessment and Plan: Patient was hypotensive in the emergency room received a 1 L fluid bolus and is receiving 2 units of packed red blood cells at this time. After patient has been given her 2 units of blood will re-evaluate her blood pressure to see if she does need a maintenance IV fluids. Will resume patient's home medications as blood pressure allows. (5) Acute hypokalemia: -K of 3.3 -IV KCl 40meq -follow up BMP tomorrow. (6) Acute hypomagnesemia: -Mg of 1.6 -IV MgS 2 grams were ordered.. Quality VTE prophylaxis: mechanical ordered Subjective Date/time seen: 01/16/22 11:41 Patient seen sitting up in bed, she denied having any new complains but endorsed being hungry. She was awaiting EGD. Her daughter was present at bedside, all questions were answered. Review of Systems Review of Systems: All systems reviewed & are unremarkable except as noted in HPI and below Exam Const: General: cooperative and comfortable Resp: Effort & Inspection: normal respiratory effort and able to speak in complete sentences Cardio: Rate: regular rate Rhythm: regular rhythm Heart sounds: S1 normal heart sound present and S2 normal heart sound present GI: Inspection: normal to inspection GI Palp: No abdominal tenderness Auscultation: normal bowel sounds Extrem: General: normal to inspection and full ROM Psych: Appearance: grossly normal and well kempt Mental Status: mental status grossly normal Objective Data Vital Signs Vital Signs: Vital Signs - 24 hr 01/15/22 12:00 01/15/22 13:00 01/15/22 13:01 Temperature 97.7 F 98 F 98 F Pulse Rate 100 96 96 Respiratory Rate 20 18 18 Blood Pressure 133/62 114/66 144/66 H Pulse Oximetry 99 100 100 01/15/22 14:00 01/15/22 14:01 01/15/22 14:15 Temperature 98.3 F 98.3 F Pulse Rate 98 98 98 Respiratory Rate 21 H 18 Blood Pressure 117/60 118/66 Pulse Oximetry 99 98 01/15/22 15:28 01/15/22 15:31 01/15/22 15:43 Temperature 98.2 F 97.6 F Pulse Rate 102 H 100 101 H Respiratory Rate 18 19 18 Blood Pressure 135/63 139/82 Pulse Oximetry 99 10
[2022-01-16 13:26] LABS: Glucose Point of Care 120 mg/dl (65-105)
--- NOTE | 2022-01-16 14:09 | WPDANESEPPF ---
Anes - Initial Pre Proc Eval Procedure: Operation Date: 01/16/22 14:15 Proposed Procedures p Esophagogastroduodenoscopy - Ryan Monae MD Date/Time: 01/16/22 14:09 Surgeon: Guillermo Winston MD Pre Op Diagnosis: altered mental status Patient Data Age: 81 Gender: F Height: 1.73 m Weight: 55.5 kg Last Vital Signs Temp 97.2 F L 01/16/22 13:10 Pulse 78 01/16/22 13:10 Resp 16 01/16/22 13:10 BP 126/53 L 01/16/22 13:10 Pulse Ox 100 01/16/22 13:10 Allergies Allergy/AdvReac Type Severity Reaction Status Date / Time Penicillins Allergy Unknown Rash Verified 01/16/22 13:24 Home Medications Medication Instructions Recorded Confirmed Type atorvastatin 20 mg PO DAILY 06/20/20 01/15/22 History calcitriol 0.25 mcg PO DAILY 06/20/20 01/15/22 History clopidogrel 75 mg PO DAILY 06/20/20 01/15/22 History cyanocobalamin (vitamin B-12) 1,000 mcg IM MONTHLY 06/20/20 01/15/22 History ergocalciferol (vitamin D2) 1,250 mcg PO WEEKLY 06/20/20 01/15/22 History losartan 50 mg PO DAILY 06/20/20 01/15/22 History metformin 500 mg PO BID 06/20/20 01/15/22 History allopurinol 100 mg PO BID 09/19/21 01/15/22 History ondansetron HCl 8 mg PO BID 09/19/21 01/15/22 History allopurinol 200 mg PO DAILY 01/13/22 01/13/22 History atorvastatin 20 mg PO DAILY 01/13/22 01/13/22 History calcitriol 0.25 mcg PO DAILY 01/13/22 01/13/22 History calcium carb,lactat-vitamin D3 2 tablet PO DAILY 01/13/22 01/13/22 History clopidogrel 75 mg PO DAILY 01/13/22 01/13/22 History cyanocobalamin (vitamin B-12) 1,000 mcg IM MONTHLY 01/13/22 01/13/22 History dexamethasone See Rx Instructions .ROUTE .COMPLEX 01/13/22 01/13/22 History ergocalciferol (vitamin D2) 50,000 unit PO DAILY 01/13/22 01/13/22 History losartan 50 mg PO DAILY 01/13/22 01/13/22 History metformin 500 mg PO DAILY 01/13/22 01/13/22 History ondansetron HCl 8 mg PO Q8H PRN 01/13/22 01/13/22 History carvedilol [Coreg] 3.125 mg PO BID #60 tablet 01/14/22 Rx furosemide [Lasix] 20 mg PO DAILY #30 tablet 01/14/22 Rx potassium chloride 10 meq PO DAILY #30 cap 01/14/22 Rx carvedilol 3.125 mg PO BID 01/15/22 01/15/22 History furosemide 20 mg PO DAILY 01/15/22 01/15/22 History potassium chloride 10 meq PO DAILY 01/15/22 01/15/22 History Laboratory Tests 01/15/22 01/15/22 01/15/22 07:35 08:28 21:14 WBC RBC Hgb 8.9 g/dL L D g/dL (12.0-15.0) Hct 26.9 % L % (37.0-47.0) MCV MCH MCHC RDW Plt Count MPV Immature Gran % (Auto) Neut % (Auto) Lymph % (Auto) Graves % (Auto) Eos % (Auto) Baso % (Auto) Lymph # (Auto) Graves # (Auto) Eos # (Auto) Baso # (Auto) Abs Immat Gran (auto) Absolute Neuts (auto) Absolute Nucleated RBC Nucleated RBC % Puncture Site Not Reportable O2 Delivery Device Room air O2 Liters/Min Not Reportable Sodium Potassium Chloride Carbon Dioxide Anion Gap BUN Creatinine Estim Creat Clear Calc Estimated GFR Glucose POC Capillary Glucose Calcium Magnesium Blood Type B Positive Antibody Screen Negative Crossmatch See Detail 01/16/22 01/16/22 01/16/22 03:15 03:15 13:22 WBC 6.8 K/mm3 K/mm3 (4.5-10.0) RBC 2.85 M/mm3 L M/mm3 (4.2-5.4) Hgb 8.9 g/dL L g/dL (12.0-15.0) Hct 27.1 % L % (37.0-47.0) MCV 95.1 fl D fl (80-100) MCH 31.2 pg D pg (26-34) MCHC 32.8 g/dl g/dl (32-36) RDW 20.7 % H % (11.5-14.5) Plt Count 131 k/mm3 L k/mm3 (150-375) MPV 10
[2022-01-16] MEDS: LACTATED RINGERS 1,000 ML 150 ML IV CONT (15:08)
[2022-01-16] MEDS: POTASSIUM CHLORIDE INJ 40 MEQ in SODIUM CHLORIDE 0.9% IV 500 ML 130 MEQ IVPB (15:57)
[2022-01-16] MEDS: MAGNESIUM SULF 2 GM/WATER 50ML 2 GM/50 ML BAG IVPB (16:10)
[2022-01-17] VITALS (11 sets, daily range): BP systolic 117–142; BP diastolic 64–77; PULSE 64–82; RESP 16–18; TEMP 35.7–36.4; O2SAT 99–100
[2022-01-17] MEDS: CENTRAL LINE FLUSH 10 ML IV PUSH (05:10)
[2022-01-17 08:59] LABS: Hematocrit 27.8 % (37.0-47.0); Mean Corpuscular HGB Conc 32.4 g/dl (32-36); Mean Corpuscular Hemoglobin 30.6 pg (26-34); Mean Corpuscular Volume 94.6 fl (80-100); Mean Platelet Volume 10.9 fl (7.4-10.4); Platelet Count Result 124 k/mm3 (150-375); Red Blood Count 2.94 M/mm3 (4.2-5.4); Red Cell Distribution Width 19.9 % (11.5-14.5); White Blood Count 4.9 K/mm3 (4.5-10.0)
[2022-01-17 09:22] LABS: NT Pro B Type Natriuretic Pept 1630 pg/mL (5-100)
--- NOTE | 2022-01-17 09:26 | PM.IMPN ---
Progress Note: A&P Additional Plan (1) UGIB (upper gastrointestinal bleed) with Acute blood loss anemia: Patient is on IV PPI. Will hold patient's Plavix since patient has not had any recent procedures or stents. -Hb of 5.9 on admission, transfused with 2 units of PRBC on 01/15/22, Hb improved to 8.9 and it is 9.0 today. -GI did an EGD on 01/16/22, it reported multiple benign ulcers ranging from 5mm-12mm in the antrum, Brody III -continue BID pantoprazole. -per her RN, the GI physician stated he is OK for the patient to be discharged home. (2) Colon cancer metastasized to liver: Code(s): C18.9 - Malignant neoplasm of colon, unspecified; C78.7 - Secondary malignant neoplasm of liver and intrahepatic bile duct Status: Acute Assessment and Plan: Patient's daughter has spoken with patient's oncologist at [facility], and he states that he is going to stop her Avastin. Will defer all colon cancer treatment to Oncology. (3) CHF (congestive heart failure): Code(s): I50.9 - Heart failure, unspecified Status: Acute Assessment and Plan: Patient did have a recent episode of congestive heart failure so her intake and output will need to be monitored very closely. Will place patient on strict I&O. Patient got Lasix 20 mg in between her 2 units of packed red blood cells. Will have to monitor patient very closely on intake output since she did have a recent episode of congestive heart failure was discharged home yesterday for her congestive heart failure episode. (4) Hypotension: resolved Code(s): I95.9 - Hypotension, unspecified Status: Acute Assessment and Plan: Patient was hypotensive in the emergency room received a 1 L fluid bolus and is receiving 2 units of packed red blood cells at this time. After patient has been given her 2 units of blood her BP has been acceptable. (5) Acute hypokalemia: -K of 3.3, managed with IV KCl 40meq (6) Acute hypomagnesemia: -Mg of 1.6, managed with IV MgS 2 grams. Subjective Date/time seen: 01/17/22 09:26 Patient seen sitting up in bedside chair, in good spirits, she denied having any new problems/ complains. Daughter was present at bedside and all questions were answered. Patient requesting to be discharged home. Exam Const: General: cooperative, comfortable and no acute distress Resp: Effort & Inspection: normal respiratory effort and able to speak in complete sentences Auscultation: clear to auscultation bilaterally Cardio: Rate: regular rate Rhythm: regular rhythm Heart sounds: S1 normal heart sound present GI: Inspection: normal to inspection GI Palp: No abdominal tenderness and Yes Soft to palpation Auscultation: normal bowel sounds Skin: General skin exam: normal color and no rashes or lesions noted Neuro: General: oriented to person, oriented to place, oriented to time and patient oriented x3 Extrem: General: normal to inspection Objective Data Vital Signs Vital Signs: Vital Signs - 24 hr 01/16/22 10:00 01/16/22 12:00 01/16/22 12:06 Temperature 97.2 F L Pulse Rate 77 79 73 Respiratory Rate 16 Blood Pressure 122/59 L Pulse Oximetry 100 01/16/22 13:10 01/16/22 15:09 01/16/22 15:19 Temperature 97.2 F L Pulse Rate 78 64 78 Respiratory Rate 16 21 H 25 H Blood Pressure 126/53 L 130/64 123/59 L Pulse Oximetry 100 100 99 01/16/22 15:29 01/16/22 16:00 01/16/22 16:09 Temperature 97.6 F Pulse Rate 68 81 81 Respiratory Rate 19 16 Blood Pressure 134/66 149/72 H Pulse Oximetry 100 99 01/16/22 18:00 01/16/22 19:42 01/16/22 20:00 Temperature 98.2 F Pulse Rate 89 77 81 Respiratory Rate 16 Blood Pressure 125/58 L Pulse Oximetry 100 01/16/22 22:00 01/16/22 23:54 01/17/22 00:00 Temperature 96.8 F L Pulse Rate 71 80 77 Respiratory Rate 18 Blood Pressure 134/72 Pulse Oximetry 100 01/17/22 02:00 01/17/22 02:55 01/17/22 04:00 Temperature 96.2 F L Pulse Rate 82 68
[2022-01-17 09:53] LABS: Anion Gap 2 mmol/L (8-16); Blood Urea Nitrogen 22 mg/dL (7-17); Calcium 7.7 mg/dL (8.4-10.2); Carbon Dioxide 27 mmol/L (22-30); Chloride 108 mmol/L (98-107); Estimated CRCL calculation 48 ml/min; Estimated Glomerular Filt Rate > 60; Glucose 121 mg/dL (65-110); Potassium 3.8 mmol/L (3.4-5.0); Sodium 137 mmol/L (137-145)
[2022-01-17] MEDS: PANTOPRAZOLE SODIUM IV 40 MG VIAL IV PUSH (10:16)
--- NOTE | 2022-01-17 12:10 | WPDGIPROGNO ---
Progress Note: A&P Assessment and Plan (1) Gastric ulcer: Code(s): K25.9 - Gastric ulcer, unspecified as acute or chronic, without hemorrhage or perforation Status: Acute Assessment and Plan: non-bleeding gastric ulcer she can go home with ppi twice daily, favor residential use (2) Acute on chronic blood loss anemia: Code(s): D62 - Acute posthemorrhagic anemia Status: Acute Assessment and Plan: hb stable after transfusion (3) Colon cancer metastasized to liver: Code(s): C18.9 - Malignant neoplasm of colon, unspecified; C78.7 - Secondary malignant neoplasm of liver and intrahepatic bile duct Status: Acute Assessment and Plan: will follow up with her oncologist (4) UGIB (upper gastrointestinal bleed): Code(s): K92.2 - Gastrointestinal hemorrhage, unspecified Status: Acute Assessment and Plan: resolved (5) Melena: Code(s): K92.1 - Melena Status: Acute Subjective Date/time seen: 01/17/22 12:10 Interval history: eating regular diet, no more bleeding. Daughter is at bedside, she is going home Review of Systems Review of Systems: All systems reviewed & are unremarkable except as noted in HPI and below Exam Const: General: comfortable and no acute distress HENMT: General nose exam: Normal nares present Eyes: General: appearance normal, both eyes and all related structures Neck: Neck: no JVD Resp: Auscultation: clear to auscultation bilaterally Cardio: Rate: regular rate Rhythm: regular rhythm GI: Inspection: non-distended GI Palp: Yes Soft to palpation and No Guarding due to palpation present (GI) Auscultation: normal bowel sounds Skin: General skin exam: no rashes or lesions noted Neuro: Speech: normal speech Extrem: General: normal to inspection Psych: Mental Status: mental status grossly normal Objective Data Vital Signs Vital Signs: Vital Signs - 24 hr 01/16/22 16:00 01/16/22 16:09 01/16/22 18:00 Temperature 97.6 F Pulse Rate 81 81 89 Respiratory Rate 16 Blood Pressure 149/72 H Pulse Oximetry 99 01/16/22 19:42 01/16/22 20:00 01/16/22 22:00 Temperature 98.2 F Pulse Rate 77 81 71 Respiratory Rate 16 Blood Pressure 125/58 L Pulse Oximetry 100 01/16/22 23:54 01/17/22 00:00 01/17/22 02:00 Temperature 96.8 F L Pulse Rate 80 77 82 Respiratory Rate 18 Blood Pressure 134/72 Pulse Oximetry 100 01/17/22 02:55 01/17/22 04:00 01/17/22 06:00 Temperature 96.2 F L Pulse Rate 68 72 Respiratory Rate 16 Blood Pressure 129/76 Pulse Oximetry 99 99 01/17/22 08:00 01/17/22 08:14 01/17/22 10:00 Temperature 96.5 F L Pulse Rate 72 81 81 Respiratory Rate 18 Blood Pressure 142/77 H Pulse Oximetry 100 01/17/22 12:00 01/17/22 12:14 01/17/22 14:00 Temperature 97.6 F Pulse Rate 74 68 64 Respiratory Rate 18 Blood Pressure 117/64 Pulse Oximetry 100 Intake/Output Intake/Output: Intake & Output 01/14/22 01/15/22 01/16/22 01/17/22 23:59 23:59 23:59 23:59 Intake Total 2655 950 440 Output Total 1050 1100 900 Balance 1605 -150 -460 Labs Labs: Laboratory Results - last 24 hr 01/17/22 01/17/22 01/17/22 08:50 08:50 08:50 WBC 4.9 RBC 2.94 L Hgb 9.0 L Hct 27.8 L MCV 94.6 MCH 30.6 MCHC 32.4 RDW 19.9 H Plt Count 124 L MPV 10.9 H Sodium 137 Potassium 3.8 Chloride 108 H Carbon Dioxide 27 Anion Gap 2 L BUN 22 H D Creatinine 0.70 Estim Creat Clear Calc 48 Estimated GFR > 60 Glucose 121 H Calcium 7.7 L NT-Pro-B Natriuret Pep 1630 H Amg Follow-up Billing Inpatient Follow-up [id number] [facility]
--- NOTE | 2022-01-17 13:21 | PM.DS ---
DS: Admitting Diagnosis Discharge Date 01/17/2022 Admitting Diagnosis #Upper GI bleeding #Acute anemia #Hypotension #Acute metabolic encephalopathy #CHF DS: Discharge Diagnosis Discharge Diagnosis (1) Acute on chronic blood loss anemia: Code(s): D62 - Acute posthemorrhagic anemia Status: Acute (2) UGIB (upper gastrointestinal bleed): Code(s): K92.2 - Gastrointestinal hemorrhage, unspecified Status: Acute (3) Colon cancer metastasized to liver: Code(s): C18.9 - Malignant neoplasm of colon, unspecified; C78.7 - Secondary malignant neoplasm of liver and intrahepatic bile duct Status: Acute (4) Hypotension: Code(s): I95.9 - Hypotension, unspecified Status: Acute (5) Hypertension: Code(s): I10 - Essential (primary) hypertension Status: Acute (6) Acute encephalopathy: Code(s): G93.40 - Encephalopathy, unspecified Status: Acute (7) Gastric ulcer: Code(s): K25.9 - Gastric ulcer, unspecified as acute or chronic, without hemorrhage or perforation Status: Acute DS: Summary Hospital Course Hospital Course: Ms. Mcgregor is an 81-year-old female who presented emergency room with altered mental status. Patient's daughter is at bedside and is helping with the events of the evening that brought the patient to the hospital. Patient currently lives with her granddaughter and does receive assistance from both of her daughters. Patient was discharged a day prior to this admission after having an episode of acute congestive heart failure. During that hospitalization patient was noted have a left ventricular systolic function of 35-40%. Patient states that she was doing fine up until the night prior to this admission. In the middle the night she started calling for her daughter because she needed to have a bowel movement. Patient's daughter stated that the patient was acting very different and was staring off into space at times. Patient stated that she did not recall any of these events occurring. Patient's daughter stated that she did get the patient up to the bathroom and she had a very large bowel movement with some coffee-ground looking stool on top of her large bowel movement. Patient's daughter stated that EMS was then called and the patient was transported to the hospital. While in the emergency room patient had 1 episode of coffee-ground emesis and a positive stool Hemoccult. Upon evaluation in emergency room patient was noted to have a hemoglobin of 5.9 and hematocrit of 18.8. Patient currently has colon cancer for which she receives chemotherapy and her last treatment was on FridayJanuary 11. Other medical problems include paroxysmal atrial fibrillation, recent C difficile infection while hospitalized for pneumonia, myocardial infarction in 1996, CAD status post stent placement, and a abdominal aortic stent. Patient has been on Plavix since the late . Patient's daughter called the patient's oncologist with all these above complaints and he stated that he will be stopping her Avastin because this could be the cause of her issues at this time. #UGIB (upper gastrointestinal bleed) with Acute blood loss anemia: #Gastric ulcers on endoscopy: -managed with IV PPI BID and by holding the patient's Plavix since patient has not had any recent procedures or stents. -Hb of 5.9 on admission, transfused with 2 units of PRBC on 01/15/22, Hb improved to 8.9 and it is 9.0 as at discharge. -GI did an EGD on 01/16/22, it reported multiple benign ulcers ranging from 5mm-12mm in the antrum, Brody III, Biopsies were taken. Patient is to follow up with GI in their office. -continue PO BID pantoprazole 40mg at home -discontinued home Plavix, I spoke to the patient and her daughter to inform her PCP and outpatient program coordinator about Plavix discontinuation. -per her RN, the GI physician stated he is OK for the patient to be discharged home today 01/17/2022. #Acute encephalopathy present on admissio
--- NOTE | 2022-01-17 14:22 | WPDANESPN ---
Anes - Prog Note Post-Op Date/Time: 01/17/22 14:22 Cardiovascular status: normal Respiratory status: normal Airway patency: baseline Mental status: baseline Post-Op hydration status: normal Vital Signs: Last Vital Signs Temp 36.4 C 01/17/22 12:14 Pulse 68 01/17/22 12:14 Resp 18 01/17/22 12:14 BP 117/64 01/17/22 12:14 Pulse Ox 100 01/17/22 12:14 Pain Score (VAS): 1 I/O: Intake & Output 01/16/22 01/17/22 01/17/22 23:59 07:59 15:59 Intake Total 420 200 240 Output Total 600 300 Balance 420 -400 -60 Laboratory Tests 01/17/22 08:50 01/17/22 08:50 01/17/22 01/17/22 01/17/22 08:50 08:50 08:50 WBC 4.9 RBC 2.94 L Hgb 9.0 L Hct 27.8 L MCV 94.6 MCH 30.6 MCHC 32.4 RDW 19.9 H Plt Count 124 L MPV 10.9 H Sodium 137 Potassium 3.8 Chloride 108 H Carbon Dioxide 27 Anion Gap 2 L BUN 22 H D Creatinine 0.70 Estim Creat Clear Calc 48 Estimated GFR > 60 Glucose 121 H Calcium 7.7 L NT-Pro-B Natriuret Pep 1630 H Post-procedural complaints: none Patient Feedback: Patient satisfied with anesthetic care.
--- NOTE | 2022-01-17 14:47 | PCCCNOTE ---
On 01/17/22, the student, [Madyson Bustamante], provided care and completed [facility] documentation on this patient. I have reviewed the student's documentation and agree with the findings.
== END 2022-01-17 15:00 | disposition home or self-care (01) | DRG 378 ==
LOC: ANHED 07:38 → ANHICU 09:01 → ANHIMU 18:51
PROVIDERS: Internal Medicine Gastroenterology; Nurse Practitioner Adult Health; Admitting Provider Family Medicine; Emergency Provider Emergency Medicine; PCP Internal Medicine; Visit Provider Internal Medicine
PROC: 0DJ08ZZ Inspection of Upper Intestinal Tract, Via Natural or Artificial Opening Endoscopic (ICD-10-PCS; CPT 43235; principal; 2022-01-16 14:15)
DX: K92.1 Melena (principal); C18.9 Malignant neoplasm of colon, unspecified; D62 Acute posthemorrhagic anemia; C78.7 Secondary malignant neoplasm of liver and intrahepatic bile duct; K25.3 Acute gastric ulcer without hemorrhage or perforation; K92.0 Hematemesis; I50.9 Heart failure, unspecified; I95.9 Hypotension, unspecified; Z66 Do not resuscitate; F17.210 Nicotine dependence, cigarettes, uncomplicated; E78.5 Hyperlipidemia, unspecified; J44.9 Chronic obstructive pulmonary disease, unspecified; E11.51 Type 2 diabetes mellitus with diabetic peripheral angiopathy without gangrene; I11.0 Hypertensive heart disease with heart failure; Z80.1 Family history of malignant neoplasm of trachea, bronchus and lung; Z80.8 Family history of malignant neoplasm of other organs or systems; Z82.49 Family history of ischemic heart disease and other diseases of the circulatory system; I25.10 Atherosclerotic heart disease of native coronary artery without angina pectoris; I25.2 Old myocardial infarction; E87.6 Hypokalemia; E83.42 Hypomagnesemia; I48.0 Paroxysmal atrial fibrillation; Z79.899 Other long term (current) drug therapy; Z79.84 Long term (current) use of oral hypoglycemic drugs; Z79.01 Long term (current) use of anticoagulants
CPT/HCPCS: 36415; 36430; 36600; 80048; 80053; 81001; 82805; 82948; 83735; 83880; 85014; 85018; 85025; 85027; 85610; 85730; 86850; 86900; 86901; 86920; 87081; 88305; 93005; 96374; 96375; 96376; 99285; C9113; G0378; J1642; J1940; J2405; J2704; J3475; J3480; J7040; J7050; J7120; P9016

== ENCOUNTER 2022-05-05 22:44 | Inpatient (IN) | payer MEDICARE, SELFPAY ==
--- NOTE | ~2022-05-05 | XR_ITS ---
EXAMINATION: XR surgery orthopedic DATE: 05/07/2022 14:13 INDICATION: Internal fixation of fractures of the proximal right femur. TECHNIQUE: 6 fluoroscopic images of the right hip and proximal femur were obtained during procedure p erformed by Dr. Carrillo. Radiologist was not present for the imaging or procedure. The amount of fluoros copy time used during this procedure was 0.6 minutes. COMPARISON: 05/05/2022 FINDINGS: Again seen is a minimally displaced intertrochanteric fracture of the proximal right femur which tabitha ins in near-anatomic alignment. Subsequent images demonstrate internal fixation with antegrade intram edullary rodrick and proximal femoral neck dynamic compression screw and distal interlocking screw. No ne w fractures identified. Mild osteoarthritis at the right hip. Likely Valle catheter within the bladde r. IMPRESSION: 1. Fluoroscopy utilized during internal fixation of an intratrochanteric fracture of the proximal rig ht femur which remains in near-anatomic alignment. Reviewed, dictated and finalized at location A. IMPRESSION: 1. Fluoroscopy utilized during internal fixation of an intratrochanteric fractu re of the proximal right femur which remains in near-anatomic alignment.
--- NOTE | ~2022-05-05 | CT_ITS ---
EXAMINATION: CT brain wo con DATE: 05/06/2022 01:17 INDICATION: Fall with hip fracture TECHNIQUE: Computed tomography (CT) of the head was performed without intravenous contrast. Sagittal and coronal reconstructions were performed. The mA was adjusted according to patient size. Iterative reconstruction technique was employed. The dose-length product was 605.33 mGy-cm. COMPARISON: Brain MR dated 01/19/2017 FINDINGS: No fracture. No acute intracranial hemorrhage, acute infarction or abnormal extra axial fluid collect ion. There is mild scattered white matter hypoattenuation consistent with chronic small vessel ischem ic disease. Symmetric prominence of the sulci consistent with mild age-appropriate diffuse cerebral v olume loss. Ventricles are normal and symmetric. No mass/mass effect. Changes of bilateral intraocula r lens replacement. The orbits, paranasal sinuses and mastoid air cells are normal. IMPRESSION: 1. No fracture or acute intracranial process. 2. Age-related changes including mild diffuse volume loss and mild scattered white matter hypoattenua tion consistent with chronic small vessel ischemic disease. Reviewed, dictated and finalized at location A. IMPRESSION: 1. No fracture or acute intracranial process. 2. Age-related changes including mild diffuse volume loss and mild scattered wh ite matter hypoattenuation consistent with chronic small vessel ischemic diseas e.
--- NOTE | ~2022-05-05 | XR_ITS ---
EXAMINATION: XR hip RT 2V w AP pelvis DATE: 05/05/2022 23:59 INDICATION: Right hip pain post fall TECHNIQUE: Anteroposterior view of the pelvis and anteroposterior and cross-table lateral views of th e right hip were obtained. COMPARISON: None. FINDINGS: Minimally displaced intratrochanteric fracture of the proximal right femur which on the lateral proje ction appears to extend along an oblique coronal orientation from anterosuperior to posterior inferio rly along the caudal margin of the lesser trochanter. No other fractures identified. Mild bilateral h ip osteoarthritis. Moderate left and mild right sacroiliac osteoarthritis. IMPRESSION: 1. Minimally displaced intertrochanteric fracture of the proximal right femur. Reviewed, dictated and finalized at location A.
--- NOTE | ~2022-05-05 | XR_ITS ---
EXAMINATION: XR chest 1V DATE: 05/05/2022 23:59 INDICATION: Emphysema. Fall with hip fracture. TECHNIQUE: frontal view of the chest was obtained. COMPARISON: Chest radiograph and CT dated 01/13/2022 FINDINGS: Hyperexpansion of lungs consistent with emphysema as seen on prior CT. No focal airspace opacities, p ulmonary edema, pleural effusion or pneumothorax. The cardiomediastinal silhouette is normal. Right i nternal jugular central venous port catheter with distal tip at the superior cavoatrial junction. IMPRESSION: 1. Emphysema. No acute cardiopulmonary disease. Reviewed, dictated and finalized at location A.
--- NOTE | ~2022-05-05 | CT_ITS ---
EXAMINATION: CT cervical spine wo con DATE: 05/06/2022 01:17 INDICATION: Neck pain after fall TECHNIQUE: Computed tomography (CT) of the cervical spine was performed without intravenous contrast. The dose-length product was 112 mGy-cm. Automated exposure control and iterative reconstruction tech [employer] were employed. COMPARISON: None FINDINGS: There is fusion at C5-C7. There is advanced degenerative disc disease at C4-5. Cranioverteb ral junction is normal. No acute fracture or traumatic malalignment. Odontoid process is normal. Ther e is moderate uncinate hypertrophy at C4-5. There is right apical nodular pleural thickening/scarring . Largest nodule measures 5 mm. Recommend follow-up low dose CT chest in 12 months. Emphysema. IMPRESSION: 1. No acute fracture. 2: Nodular pleural thickening in the apices with nodules measuring up to 5 mm. Follow-up low dose CT chest in 12 months recommended. Reviewed, dictated and finalized at location B.
[2022-05-05 22:55] VITALS: BP 121/54; O2SAT 99
[2022-05-05 23:00] VITALS: BP 87/48; PULSE 65; RESP 16; TEMP 36.2; O2SAT 100
[2022-05-05 23:01] VITALS: BP 121/53; O2SAT 100
--- NOTE | 2022-05-05 23:03 | ED.FALL ---
HPI - Fall General Chief Complaint: Fall Stated Complaint: RIGHT HIP INJURY Time Seen by Provider: 05/05/22 22:52 History of Present Illness HPI Narrative: 81-year-old female presents emergency room accompanied by family secondary to pain to her right hip. She had a mechanical fall at home and has been having pain to the right hip ever since. She states she felt dizzy, lost her balance and subsequently fell. Did not hit her head had no loss of consciousness. Denies any neck, chest, or back pain. Patient is currently undergoing treatment for stage IV colon cancer. She has undergone 13 rounds of chemotherapy. She is had a great response to this and the tumor in her ascending colon has shrunk significantly. She also initially had metastatic lesion to her liver which is nondetectable at this time. After she fell she was unable to get up and walk. Related Data Home Medications Medication Instructions Recorded Confirmed atorvastatin 20 mg tablet 20 mg PO DAILY 06/20/20 01/15/22 calcitriol 0.25 mcg capsule 0.25 mcg PO DAILY 06/20/20 01/15/22 cyanocobalamin (vitamin B-12) 1,000 mcg IM MONTHLY 06/20/20 03/28/22 1,000 mcg/mL injection kit ergocalciferol (vitamin D2) 1,250 1,250 mcg PO WEEKLY 06/20/20 03/28/22 mcg (50,000 unit) capsule losartan 50 mg tablet 50 mg PO DAILY 06/20/20 03/28/22 metformin 500 mg tablet 500 mg PO BID 06/20/20 03/28/22 allopurinol 100 mg tablet 100 mg PO BID 09/19/21 01/15/22 ondansetron HCl 8 mg tablet 8 mg PO BID 09/19/21 03/28/22 calcium carb and lactate 200 2 tablet PO DAILY 01/13/22 01/13/22 mg-vitamin D3 6.25 mcg (250 unit) tablet dexamethasone 4 mg tablet See Rx Instructions .Route .COMPLEX 01/13/22 03/28/22 aspirin 81 mg tablet,delayed 81 mg PO DAILY 03/28/22 03/28/22 release metoprolol succinate 25 mg 12.5 mg PO DAILY 03/28/22 03/28/22 tablet,extended release 24 hr duloxetine 30 mg capsule,delayed mg PO 05/06/22 release Allergies Allergy/AdvReac Type Severity Reaction Status Date / Time Penicillins Allergy Unknown Rash Verified 05/05/22 23:56 Review of Systems Review of Systems: CONSTITUTIONAL: Denies fever, chills, or sweats. EYES: Denies visual changes, redness, or discharge. ENT: Denies rhinorrhea, congestion, sore throat, or otalgia. CARDIOVASCULAR: Denies chest pain, palpitations, or edema. RESPIRATORY: Denies cough or dyspnea. GASTROINTESTINAL: Denies abdominal pain, nausea, vomiting, or diarrhea. GENITOURINARY: Denies dysuria or hematuria. SKIN: Denies rash or itching. MUSCULOSKELETAL: Pain to the right hip with any movement of the right lower extremity NEUROLOGIC: Denies headache, numbness, or weakness. PSYCHIATRIC: Denies anxiety or depression. [facility] Past Medical History Medical History Acute on chronic blood loss anemia Chronic obstructive pulmonary disease Colon cancer Colon cancer metastasized to liver Coronary artery disease History of IA in 1992. Diabetic peripheral neuropathy History of Jackson's palsy Hyperlipidemia Hypertension Irritable bowel syndrome Melena Peripheral vascular disease Tobacco dependence Type 2 diabetes mellitus UGIB (upper gastrointestinal bleed) Surgical History Surgical History History of appendectomy History of cardiac catheterization (1992) History of lumbar surgery History of vascular surgery (2001) Infrarenal abdominal aortic angioplasty with stent placement. Family History Family History Mother Family history of cardiovascular disease Father Family history of lung cancer Sibling Family history of lung cancer Family history of throat cancer Family history of Hodgkin's lymphoma Social History Social History Social History: Surrogate decision maker: Anum Santiago, daughter. Code status: Do not resus
[2022-05-05 23:16] VITALS: BP 115/56; PULSE 61; RESP 17; O2SAT 98
[2022-05-05 23:31] VITALS: BP 120/59; PULSE 63; RESP 19; O2SAT 99
[2022-05-05] MEDS: MORPHINE SULFATE (*CRX) 2 MG/ML INJ IV PUSH (23:35)
[2022-05-06 00:11] LABS: Basophils Percent Auto 0.3 % (0.2-1.2); Eosinophils Absolute Auto 0.1 K/mm3 (0-0.3); Hematocrit 26.5 % (37.0-47.0); Hemoglobin 8.6 g/dL (12.0-15.0); Immature Granulocyte Absolute 0.06 K/mm3 (0.00-0.031); Immature Granulocyte Percent A 0.8 % (0-0.5); Lymphocytes Absolute Auto 3.24 K/mm3 (0.9-3.2); Lymphocytes Percent Auto 42.4 % (18.3-44.2); Mean Corpuscular HGB Conc 32.5 g/dl (32-36); Mean Corpuscular Hemoglobin 35.1 pg (26-34); Mean Corpuscular Volume 108.2 fl (80-100); Mean Platelet Volume 10.1 fl (7.4-10.4); Monocytes Absolute Auto 0.3 K/mm3 (0.1-0.6); Monocytes Percent Auto 4.3 % (2.6-8.5); Neutrophils Absolute Auto 3.9 K/mm3 (1.3-6.7); Neutrophils Percent Auto 51.2 % (45.5-73.1); Platelet Count Result 220 k/mm3 (150-375); Red Blood Count 2.45 M/mm3 (4.2-5.4); Red Cell Distribution Width 17.9 % (11.5-14.5); White Blood Count 7.7 K/mm3 (4.5-10.0)
[2022-05-06 00:17] LABS: Alanine Aminotransferase 15 U/L (6-35); Albumin Level 3.3 g/dL (3.5-5.1); Alkaline Phosphatase 51 U/L (38-126); Anion Gap 6 mmol/L (8-16); Aspartate Amino Transferase 15 U/L (14-36); Bilirubin,Total 0.3 mg/dL (0.2-1.3); Blood Urea Nitrogen 26 mg/dL (7-17); Calcium 8.3 mg/dL (8.4-10.2); Carbon Dioxide 31 mmol/L (22-30); Chloride 96 mmol/L (98-107); Estimated CRCL calculation 32 ml/min; Estimated Glomerular Filt Rate 53; Glucose 133 mg/dL (65-110); Potassium 3.8 mmol/L (3.4-5.0); Sodium 133 mmol/L (137-145)
[2022-05-06] MEDS: SODIUM CHLORIDE 0.9% IV 1,000 ML 150 ML IV CONT (00:21)
--- NOTE | 2022-05-06 00:21 | ECG_ITS ---
Measurements Intervals [place] Rate: 58 P: 69 DE: 118 QRS: 55 QRSD: 80 T: 60 QT: 425 QTc: 419 Interpretive Statements SINUS BRADYCARDIA WITH SHORT DE INTERVAL WITH OCCASIONAL VENTRICULAR PREMATURE COMPLEXES COMPARED TO ECG 01/15/2022 07:17:31 SINUS RHYTHM REPLACES SVT Electronically Signed On 05-06-2022 13:57:26 CDT by Ankit Bourne M.D.
[2022-05-06 00:23] LABS: INR 1.1; Partial Thromboplastin Time 24.4 SECONDS (22.3-36.8)
--- NOTE | 2022-05-06 00:27 | PM.IMHP ---
H&P: HPI History of Present Illness Date/Time: 05/06/22 00:27 Chief Complaint: Fall Narrative: This is an 81-year-old female with past medical history significant for colon cancer patient has been undergoing chemotherapy. She comes today to the emergency room after having a fall at home with no loss of consciousness. patient was unable to bear weight and was brought to the emergency room for evaluation she was found to have a hip fracture. Patient denies any fevers, chills, nausea, vomiting, abdominal pain, lightheadedness, shortness of breath, leg swelling, no cough, no sputum production. PATIENT HAS BEEN ADMITTED FOR FURTHER EVALUATION MANAGEMENT AND TREATMENT. Review of Systems Review of Systems: PATIENT HAD A FALL unable to bear weight or stand on her own Constitutional: Constitutional: Denies chills, Denies fatigue, Denies fever(s), Denies malaise, Denies night sweats and Denies weakness Eyes: Eyes: Denies change in vision ENT: Denies dysphagia, Denies vertigo, Denies dizziness and Denies odynophagia Cardiovascular: Cardiovascular: Denies chest pain, Denies syncope, Denies irregular heart rhythm, Denies lightheadedness, Denies palpitations and Denies dyspnea on exertion Respiratory: Respiratory: Denies change in phlegm color, Denies chest congestion, Denies cough and Denies excessive phlegm production Gastrointestinal: Gastrointestinal: Denies abdominal pain, Denies dyspepsia, Denies heartburn, Denies nausea and Denies vomiting Genitourinary: Genitourinary: Denies dysuria Musculoskeletal: Musculoskeletal: Reports arthralgias Integumentary/Breasts: Skin/Breast: Denies rash Neurologic: Denies vertigo, Denies dizziness, Denies focal weakness and Denies Sensory deficit (Neuro) Psychiatric: Psychiatric: Reports no additional psychiatric complaints and Reports as per HPI Endocrine: Endocrine: Denies cold intolerance, Denies fatigue, Denies flushing, Denies heat intolerance, Denies polyphagia, Denies polydipsia and Denies palpitations Hematologic/Lymphatic: Hematologic/Lymphatic: Reports no additional hematologic/lymphatic complaints and Reports as per HPI Allergic/Immunologic: Allergic/Immunologic: Reports no additional allergic/immunologic complaints and Reports as per HPI PMFSH Past Medical History Medical History Acute on chronic blood loss anemia Chronic obstructive pulmonary disease Colon cancer Colon cancer metastasized to liver Coronary artery disease History of [place] in 1992. Diabetic peripheral neuropathy History of Jackson's palsy Hyperlipidemia Hypertension Irritable bowel syndrome Melena Peripheral vascular disease Tobacco dependence Type 2 diabetes mellitus UGIB (upper gastrointestinal bleed) Surgical History Surgical History History of appendectomy History of cardiac catheterization (1992) History of lumbar surgery History of vascular surgery (2001) Infrarenal abdominal aortic angioplasty with stent placement. Family History Family History Mother Family history of cardiovascular disease Father Family history of lung cancer Sibling Family history of lung cancer Family history of throat cancer Family history of Hodgkin's lymphoma Social History Social History Social History: Surrogate decision maker: Anum Santiago, daughter. Code status: Do not resuscitate. Smoking packs per day: 0.5 Smoking cigarettes per day: 10.0 Years smoked: 50 Smoking pack-years: 25.00 Smoking status: Current every day smoker Tobacco type: cigarettes Second hand tobacco smoke exposure: Yes Alcohol intake: never Drinks per week: 1 Substance use: never Substance use type: does not use Additional living arrangements comments: The patient lives in [place]. I believe her jim
[2022-05-06 00:37] VITALS: BP 116/48; PULSE 63; RESP 15; O2SAT 98
--- NOTE | 2022-05-06 01:02 | PC.NURSE ---
PT TO CT FOR SCANS.
[2022-05-06 01:25] VITALS: BP 111/64; PULSE 60; RESP 16; O2SAT 100
[2022-05-06] MEDS: MORPHINE SULFATE (*CRX) 2 MG/ML INJ IV PUSH ×5 (01:39→23:53)
[2022-05-06 02:00] VITALS: BMI 16.9
[2022-05-06 02:04] VITALS: BP 114/49; PULSE 62; RESP 16; TEMP 36.6; O2SAT 99
--- NOTE | 2022-05-06 02:04 | ADMGEN ---
This patient, Curt Mcgregor, was admitted to 2 Medical Room 257-01 @ 0155. Patient/family oriented to hospital policies and general routines including ID bracelet, bed and alarms, visiting hours, pain management, procedures, bathroom and other care routines, personal items, smoking policy, room service/diet, and visiting hours. Information on how to activate the Rapid Response Team has been discussed. Patient/Family are encouraged to report perceived risks to care and to ask questions if they do not understand what they are told or what they should do.
[2022-05-06 02:06] VITALS: BMI 16.5
[2022-05-06 05:20] VITALS: BP 113/44; PULSE 62; RESP 16; TEMP 36.6; O2SAT 98
[2022-05-06 05:24] LABS: Appearance Urine Clear (Clear); Bilirubin Urine Negative (Negative); Blood Urine 2+ (Negative); Color Urine Yellow (Yellow); Glucose Urine UA Negative (Negative); Ketones Urine Negative (Negative); Leukocyte Esterase Ur Negative LEU/UL (Negative); Nitrate Urine Negative (Negative); Protein Urine Negative (Negative); Specific Grav Ur 1.015 (1.001-1.035)
[2022-05-06 05:27] LABS: Mucus Urine Rare /lpf; WBC Urine 0-3 /hpf
[2022-05-06 05:28] LABS: Add Urine Microscopic? YES
--- NOTE | 2022-05-06 09:24 | PM.IMPN ---
Progress Note: A&P Assessment and Plan (1) Closed fracture of right hip: Code(s): S72.001A - Fracture of unspecified part of neck of right femur, initial encounter for closed fracture Status: Acute (2) CHF (congestive heart failure): Code(s): I50.9 - Heart failure, unspecified Status: Acute (3) Cardiomyopathy: Code(s): I42.9 - Cardiomyopathy, unspecified Status: Acute (4) Tobacco dependence: Code(s): F17.200 - Nicotine dependence, unspecified, uncomplicated Status: Acute (5) Chronic obstructive pulmonary disease: Code(s): J44.9 - Chronic obstructive pulmonary disease, unspecified Status: Acute (6) Type 2 diabetes mellitus: Code(s): E11.9 - Type 2 diabetes mellitus without complications Status: Acute (7) Coronary artery disease: Code(s): I25.10 - Atherosclerotic heart disease of [place] coronary artery without angina pectoris Status: Acute (8) Colon cancer metastasized to liver: Code(s): C18.9 - Malignant neoplasm of colon, unspecified; C78.7 - Secondary malignant neoplasm of liver and intrahepatic bile duct Status: Acute Plan Fall mechanical CT head and CT cervical spine negative for any acute fractures. Closed fracture right hip orthopedic consult currently NPO morphine IV p.r.n. for pain management. cardiomyopathy With ejection fraction 35-40% combined diastolic and systolic congestive heart failure well compensated on metoprolol Tobacco dependence COPD not in exacerbation Type 2 diabetes mellitus on metformin which is on hold. SSI Coronary artery disease status post stent placement in 1995 Metastatic Colon cancer with metastasis to peritoneum and liver on chemotherapy last chemo on Friday chronic anemia Peripheral neuropathy History of Jackson's palsy Hypertension Hyperlipidemia Eight will also Peripheral vascular disease with abdominal aortic stent placement in the past.Plavix. Since GI bleed. Added on aspirin 81 mg daily since a month now History of GI bleed Most recently related to gastric ulcer and Plavix use in January of 2022 DVT prophylaxis awaiting potential surgery Code status full code Subjective Date/time seen: 05/06/22 09:24 Interval history: Diet:This is an 81-year-old female with past medical history significant for colon cancer patient has been undergoing chemotherapy.? She comes today to the emergency room after having a fall at home with no loss of consciousness. patient was unable to bear weight and was brought to the emergency room for evaluation she was found to have a hip fracture.? Patient denies any fevers, chills, nausea, vomiting, abdominal pain, lightheadedness, shortness of breath, leg swelling, no cough, no sputum production.? PATIENT HAS BEEN ADMITTED FOR FURTHER EVALUATION MANAGEMENT AND TREATMENT. no overnight events. [place] dizzy and lightheaded and fell last evening. Did not have any palpitations or chest pain. Found to have right hip fracture no other injuries. Daughter at bedside. Recently saw plant attendant and had changed her Coreg to metoprolol and added aspirin 81 mg daily. Review of Systems Review of Systems: All systems reviewed & are unremarkable except as noted in HPI and below Exam Narrative: GENERAL: The patient is well developed, not in acute distress HEENT: Nonicteric sclerae, PERRLA, EOMI. Oropharynx clear. Moist mucous membranes. Conjunctivae appear well perfused. CHEST: Chest wall is nontender. HEART: Regular rate and rhythm without murmur, rubs, or gallops LUNGS: Clear to auscultation bilaterally. no respiratory distress ABDOMEN: Soft, positive bowel sounds, non-tender, no organomegaly. SKIN: No rash, no excessive bruising, petechiae, or purpura. NEUROLOGIC: Cranial nerves II-XII intact, alert and oriented x 3, no gross motor deficits EXTREMITIES: no edema, cyanosis or clubbing Right hip pain reported Objective Data Vital Signs Vital Signs: Vital Si
[2022-05-06 12:17] VITALS: BMI 16.5
[2022-05-06 14:51] VITALS: BP 106/45; PULSE 88; RESP 20; TEMP 36.8; O2SAT 96
--- NOTE | 2022-05-06 15:09 | PM.CNOR ---
Assessment and Plan Assessment and plan (1) Intertrochanteric fracture of right hip: Code(s): S72.141A - Displaced intertrochanteric fracture of right femur, initial encounter for closed fracture Status: Acute Plan 81-year-old female with a right IT hip fracture. She has a history of GI bleeding and gastric ulcers but apparently is doing reasonably well with respect to that. She is markedly anemic but has been so for several months. She is getting chemotherapy every two weeks as a maintenance type dose. All of these things in addition to her age to put her at increased risk for perioperative complications however she is quite active at this point and so the I think that after discussing the situation with the patient and her family, ORIF of the right IT hip fracture is going to be the most prudent course. Plan on ORIF right IT hip fracture tomorrow. Will keep her NPO after midnight tonight. Risks and potential complications were discussed in detail and questions answered. Thank you for the consultation. History of Present Illness HPI Consult date: 05/06/22 Chief complaint: Right Hip Fracture Narrative: This document created with [id number] technology and is subject to power lineman irregularities. 81-year-old female fell yesterday suffering a right intertrochanteric hip fracture. She does have a pretty significant medical history and is currently being treated for colon cancer but with chemotherapy it sounds like this has improved dramatically. So much so, that there is discussion surgical resection apparently. No other injury with this occurrence. She articulates pain in her right proximal thigh. Does not use any type of a gait aid. Review of Systems Constitutional: Constitutional: Reports no additional constitutional complaints, Denies excessive sweating and Denies fatigue Eyes: Eyes: Reports no additional eye complaints ENT: Reports system reviewed and no additional complaints, except as documented Cardiovascular: Cardiovascular: Denies chest pain at rest and Denies dyspnea Respiratory: Respiratory: Reports no additional respiratory complaints and Denies dyspnea Gastrointestinal: Gastrointestinal: Reports no additional gastrointestinal complaints Musculoskeletal: Musculoskeletal: Reports as per HPI Integumentary/Breasts: Skin/Breast: Reports system reviewed and no additional complaints, except as docu Neurologic: Reports as per HPI Endocrine: Endocrine: Denies excessive sweating and Denies fatigue Hematologic/Lymphatic: Hematologic/Lymphatic: Denies easy bleeding and Denies easy bruising PMFSH Past Medical History Medical History (Updated 05/06/22 @ 15:14 by Jg Carrillo MD) Acute on chronic blood loss anemia Chronic obstructive pulmonary disease Colon cancer Colon cancer metastasized to liver Coronary artery disease History of [place] in 1992. Diabetic peripheral neuropathy History of Jackson's palsy Hyperlipidemia Hypertension Intertrochanteric fracture of right hip Irritable bowel syndrome Melena Peripheral vascular disease Tobacco dependence Type 2 diabetes mellitus UGIB (upper gastrointestinal bleed) Surgical History Surgical History History of appendectomy History of cardiac catheterization (1992) History of lumbar surgery History of vascular surgery (2001) Infrarenal abdominal aortic angioplasty with stent placement. Family History Family History Mother Family history of cardiovascular disease Father Family history of lung cancer Sibling Family history of lung cancer Family history of throat cancer Family history of Hodgkin's lymphoma Social History Social History Social History: Surrogate decision maker: Anum Santiago, daughter. Code status: Do not resuscitate. Smoking packs per day: 0.5 Smoking cigarett
[2022-05-06 19:38] VITALS: BP 100/52; PULSE 69; RESP 16; TEMP 36.1; O2SAT 96
[2022-05-06] MEDS: HEPARIN SODIUM 5,000 UNITS/ML VIAL 5000 UNITS SUB-Q (20:21)
[2022-05-06] MEDS: SODIUM CHLORIDE 0.9% IV 1,000 ML 50 ML IV CONT (23:52)
[2022-05-07] VITALS (16 sets, daily range): BP systolic 92–133; BP diastolic 43–64; PULSE 77–98; RESP 12–18; TEMP 36.1–37.1; O2SAT 91–100
[2022-05-07] MEDS: MORPHINE SULFATE (*CRX) 2 MG/ML INJ IV PUSH ×3 (04:57→16:16)
[2022-05-07 06:14] LABS: Basophils Percent Auto 0.2 % (0.2-1.2); Eosinophils Absolute Auto 0.1 K/mm3 (0-0.3); Eosinophils Percent Auto 0.7 % (0-4.4); Hemoglobin 8.6 g/dL (12.0-15.0); Immature Granulocyte Absolute 0.16 K/mm3 (0.00-0.031); Immature Granulocyte Percent A 1.6 % (0-0.5); Lymphocytes Absolute Auto 1.63 K/mm3 (0.9-3.2); Lymphocytes Percent Auto 16.1 % (18.3-44.2); Mean Corpuscular HGB Conc 31.9 g/dl (32-36); Mean Corpuscular Hemoglobin 34.8 pg (26-34); Mean Corpuscular Volume 109.3 fl (80-100); Mean Platelet Volume 9.7 fl (7.4-10.4); Monocytes Absolute Auto 0.5 K/mm3 (0.1-0.6); Monocytes Percent Auto 4.7 % (2.6-8.5); Neutrophils Absolute Auto 7.8 K/mm3 (1.3-6.7); Neutrophils Percent Auto 76.7 % (45.5-73.1); Platelet Count Result 195 k/mm3 (150-375); Red Blood Count 2.47 M/mm3 (4.2-5.4); Red Cell Distribution Width 17.5 % (11.5-14.5); White Blood Count 10.1 K/mm3 (4.5-10.0)
[2022-05-07 06:32] LABS: Alanine Aminotransferase 12 U/L (6-35); Albumin Level 2.9 g/dL (3.5-5.1); Alkaline Phosphatase 52 U/L (38-126); Anion Gap 5 mmol/L (8-16); Aspartate Amino Transferase 16 U/L (14-36); Bilirubin,Total 0.4 mg/dL (0.2-1.3); Blood Urea Nitrogen 19 mg/dL (7-17); Calcium 7.2 mg/dL (8.4-10.2); Carbon Dioxide 28 mmol/L (22-30); Chloride 104 mmol/L (98-107); Estimated CRCL calculation 43 ml/min; Estimated Glomerular Filt Rate > 60; Glucose 170 mg/dL (65-110); Magnesium 1.4 mg/dL (1.6-2.3); Potassium 3.7 mmol/L (3.4-5.0); Sodium 137 mmol/L (137-145)
[2022-05-07 07:11] LABS: Anisocytosis 1+ (NORMAL); Platelet Estimate Adequate (Adequate)
--- NOTE | 2022-05-07 08:06 | PC.NURSE ---
Report called Shannon DOZIER Preop.
[2022-05-07] MEDS: MAGNESIUM SULF 2 GM/WATER 50ML 2 GM/50 ML BAG IVPB (08:16)
[2022-05-07] MEDS: METOPROLOL SUCCINATE EXT REL 25 MG TABCR PO (08:23)
[2022-05-07] MEDS: DULoxetine HCL 30 MG CAPSULE.DR PO (08:23)
--- NOTE | 2022-05-07 10:45 | PC.NURSE ---
To OR via bed. Family at bedside. Valle draining clear yellow urine.
--- NOTE | 2022-05-07 11:01 | WPDANESEPPF ---
Anes - Initial Pre Proc Eval Procedure: Operation Date: 05/07/22 12:30 Proposed Procedures p Right Intertrochanteric Nail - Jg Carrillo MD Date/Time: 05/07/22 11:01 Surgeon: Benedicto Galvez MD Pre Op Diagnosis: Right Hip Fracture Patient Data Age: 81 Gender: F Height: 1.73 m Weight: 49.4 kg Last Vital Signs Temp 36.2 C L 05/07/22 04:51 Pulse 81 05/07/22 08:23 Resp 16 05/07/22 08:16 BP 127/62 05/07/22 04:51 Pulse Ox 93 05/07/22 08:16 O2 Del Method Room Air 05/07/22 08:16 Allergies Allergy/AdvReac Type Severity Reaction Status Date / Time Penicillins Allergy Unknown Rash Verified 05/05/22 23:56 Home Medications Medication Instructions Recorded Confirmed Type atorvastatin 20 mg tablet 20 mg PO DAILY 06/20/20 05/06/22 History calcitriol 0.25 mcg capsule 0.25 mcg PO DAILY 06/20/20 05/06/22 History cyanocobalamin (vitamin B-12) 1,000 mcg IM MONTHLY 06/20/20 05/06/22 History 1,000 mcg/mL injection kit ergocalciferol (vitamin D2) 1,250 1,250 mcg PO WEEKLY 06/20/20 05/06/22 History mcg (50,000 unit) capsule losartan 50 mg tablet 50 mg PO DAILY 06/20/20 05/06/22 History allopurinol 100 mg tablet 100 mg PO BID 09/19/21 05/06/22 History ondansetron HCl 8 mg tablet 8 mg PO Q8H PRN nausea 09/19/21 05/06/22 History dexamethasone 4 mg tablet See Rx Instructions .Route .COMPLEX 01/13/22 05/06/22 History furosemide 20 mg tablet (Lasix) 20 mg PO DAILY #30 tabs 01/14/22 05/06/22 Rx potassium chloride 10 mEq 10 meq PO DAILY #30 caps 01/14/22 05/06/22 Rx capsule,extended release aspirin 81 mg tablet,delayed 81 mg PO DAILY 03/28/22 05/06/22 History release metoprolol succinate 25 mg 25 mg PO DAILY 03/28/22 05/06/22 History tablet,extended release 24 hr duloxetine 30 mg capsule,delayed 30 mg PO DAILY 05/06/22 05/06/22 History release ferrous sulfate 325 mg (65 mg 325 mg PO DAILY 05/06/22 05/06/22 History iron) capsule,extended release metformin 500 mg tablet,extended 500 mg PO DAILY 05/06/22 05/06/22 History release 24 hr pantoprazole 40 mg tablet,delayed 40 mg PO BID 05/06/22 05/06/22 History release Laboratory Tests 05/07/22 05/07/22 06:07 06:07 WBC 10.1 K/mm3 H K/mm3 (4.5-10.0) RBC 2.47 M/mm3 L M/mm3 (4.2-5.4) Hgb 8.6 g/dL L g/dL (12.0-15.0) Hct 27.0 % L % (37.0-47.0) MCV 109.3 fl H fl (80-100) MCH 34.8 pg H pg (26-34) MCHC 31.9 g/dl L g/dl (32-36) RDW 17.5 % H % (11.5-14.5) Plt Count 195 k/mm3 k/mm3 (150-375) MPV 9.7 fl fl (7.4-10.4) Immature Gran % (Auto) 1.6 % H % (0-0.5) Neut % (Auto) 76.7 % H % (45.5-73.1) Lymph % (Auto) 16.1 % L % (18.3-44.2) Douglas % (Auto) 4.7 % % (2.6-8.5) Eos % (Auto) 0.7 % % (0-4.4) Baso % (Auto) 0.2 % % (0.2-1.2) Lymph # (Auto) 1.63 K/mm3 K/mm3 (0.9-3.2) Douglas # (Auto) 0.5 K/mm3 K/mm3 (0.1-0.6) Eos # (Auto) 0.1 K/mm3 K/mm3 (0-0.3) Baso # (Auto) 0.0 K/mm3 K/mm3 (0.0-0.1) Abs Immat Gran (auto) 0.16 K/mm3 H K/mm3 (0.00-0.031) Absolute Neuts (auto) 7.8 K/mm3 H K/mm3 (1.3-6.7) Absolute Nucleated RBC 0.0 K/mm3 K/mm3 (0.0-0.012) Nucleated RBC % 0.0 % % (0.0-0.2) Platelet Estimate Adequate (Adequate) Anisocytosis 1+ (NORMAL) Sodium 137 mmol/L mmol/L (137-145) Potassium 3.7 mmol/L mmol/L (3.4-5.0) Chloride 104 mmol/L mmol/L (98-107) Carbon Dioxide 28 mmol/L mmol/L (22-30) Anion Gap 5 mmol/L L mmol/L (8-16) BUN 19 mg/dL H mg/dL (7-17) Creatinine 0.70 mg/dL mg/dL (0.7-1.0) Estim Creat Clear Calc 43 ml/min ml/min Estimated GFR > 60 (59 - ) Glucose 170 mg/dL H mg/dL (65-110) Calcium 7.2 mg/dL L mg/dL (8.4-10.2) Magnesium 1.4 mg/dL L mg/dL (1.6-2.3) Total Bilirubin 0.4 mg/dL mg/dL (0.2-1.3) A
--- NOTE | 2022-05-07 11:52 | WPDHPUPDATE1 ---
History and Physical Update Update Date/Time: 05/07/22 11:52 History and Physical has been reviewed, including an updated exam of the patient. There are NO changes in the patient's condition. Risks, benefits, and alternatives have been discussed and questions answered. Patient agrees to proceed with procedure.
[2022-05-07] MEDS: LACTATED RINGERS 1,000 ML 30 ML IV CONT (12:01)
[2022-05-07] MEDS: ceFAZolin 2 GM/D5W 50 ML 2 GM/50 ML BAG IVPB (13:02)
--- NOTE | 2022-05-07 14:15 | PM.IMPN ---
Progress Note: A&P Assessment and Plan (1) Closed fracture of right hip: Code(s): S72.001A - Fracture of unspecified part of neck of right femur, initial encounter for closed fracture Status: Deleted (2) CHF (congestive heart failure): Code(s): I50.9 - Heart failure, unspecified Status: Acute (3) Cardiomyopathy: Code(s): I42.9 - Cardiomyopathy, unspecified Status: Acute (4) Tobacco dependence: Code(s): F17.200 - Nicotine dependence, unspecified, uncomplicated Status: Acute (5) Chronic obstructive pulmonary disease: Code(s): J44.9 - Chronic obstructive pulmonary disease, unspecified Status: Acute (6) Type 2 diabetes mellitus: Code(s): E11.9 - Type 2 diabetes mellitus without complications Status: Acute (7) Coronary artery disease: Code(s): I25.10 - Atherosclerotic heart disease of [place] coronary artery without angina pectoris Status: Acute (8) Colon cancer metastasized to liver: Code(s): C18.9 - Malignant neoplasm of colon, unspecified; C78.7 - Secondary malignant neoplasm of liver and intrahepatic bile duct Status: Acute Plan # Fall mechanical CT head and CT cervical spine negative for any acute fractures. #Closed fracture right hip orthopedic consult currently NPO morphine IV p.r.n. for pain management. planned surgery today #cardiomyopathy With ejection fraction 35-40% combined diastolic and systolic congestive heart failure well compensated on metoprolol which is resumed #Tobacco dependence #COPD not in exacerbation #Type 2 diabetes mellitus on metformin which is on hold. SSI #Coronary artery disease status post stent placement in 1995 #Metastatic Colon cancer with metastasis to peritoneum and liver on chemotherapy last chemo on Friday #chronic anemia #Peripheral neuropathy #History of Jackson's palsy #Hypertension #Hyperlipidemia #Peripheral vascular disease with abdominal aortic stent placement in the past.Plavix. Since GI bleed. Added on aspirin 81 mg daily since a month now #History of GI bleed Most recently related to gastric ulcer and Plavix use in January of 2022 #DVT prophylaxis heparin subQ #Code status full code Subjective Date/time seen: 05/07/22 14:15 Interval history: Diet:This is an 81-year-old female with past medical history significant for colon cancer patient has been undergoing chemotherapy.? She comes today to the emergency room after having a fall at home with no loss of consciousness. patient was unable to bear weight and was brought to the emergency room for evaluation she was found to have a hip fracture.? Patient denies any fevers, chills, nausea, vomiting, abdominal pain, lightheadedness, shortness of breath, leg swelling, no cough, no sputum production.? PATIENT HAS BEEN ADMITTED FOR FURTHER EVALUATION MANAGEMENT AND TREATMENT. 815/ no overnight events. [place] dizzy and lightheaded and fell last evening. Did not have any palpitations or chest pain. Found to have right hip fracture no other injuries. Daughter at bedside. Recently saw examiner rating clerk and had changed her Coreg to metoprolol and added aspirin 81 mg daily. 05/07/2022 no overnight events. Complains of pain. Going for the surgery this afternoon. Denies any chest pain or shortness of breath Review of Systems Review of Systems: All systems reviewed & are unremarkable except as noted in HPI and below Exam Narrative: GENERAL: The patient is well developed, not in acute distress HEENT: Nonicteric sclerae, PERRLA, EOMI. Oropharynx clear. Moist mucous membranes. Conjunctivae appear well perfused. CHEST: Chest wall is nontender. HEART: Regular rate and rhythm without murmur, rubs, or gallops LUNGS: Clear to auscultation bilaterally. no respiratory distress ABDOMEN: Soft, positive bowel sounds, non-tender, no organomegaly. SKIN: No rash, no excessive bruising, petechiae, or purpura. NEUROLOGIC: Cranial nerves II-
--- NOTE | 2022-05-07 14:27 | P.OP_ITS ---
Procedure Note - Detailed Date of Procedure 05/07/22 Pre-op Diagnosis Right IT Hip Fracture Post-op Diagnosis Same Procedure Performed ORIF right IT hip fracture with trochanteric nail Surgeon Jg Carrillo MD Pest Control Service Sales Agent Jose Carlos Anesthesia General Description of Procedure The patient was identified and proper site identified, then was taken to the operating room and after general anesthetic induction and intubation was transferred to the Haynes table positioning supine taking care to properly pad position the torso and extremities. A provisional reduction was able to be obtained with fluoroscopic assistance. The right hip and thigh was then prepped and draped in the usual sterile fashion. A short incision was made proximal to the tip of the greater trochanter. Subcutaneous tissue was sharply dissected down to the gluteus fascia which was incised over the tip of the greater tr ochanter. An awl was used to create a starting hole through which a guide rodrick was inserted into the femoral canal verifying its position fluoroscopically. The one-step Reamer was used to prepare the entry point for the rodrick. A 9 millimeter, 125 degree short nail was then inserted to the appropriate level using the targeting device. Through a 2nd more distal incision under fluoroscopic visualization a 90 mm lag screw was inserted over a guidewire into the femoral neck and head securing it with the set screw. Through a 3rd more distal incision, using the targeting device, a distal interlocking screw was placed. The overall construct was assessed fluoroscopically on the AP and lateral views, and was noted to be satisfactory. The targeting device was removed. The wounds were irrigated with sterile antibiotic solution. The fascia was reapproximated with 0 Vicryl as was the deeper layers of the subcu. Skin edges were reapproximated with 3-0 Monocryl and nehemiah. Sterile dressing was applied. The procedure was well tolerated. There were no known intraoperative complications. Perioperative antibiotics were administered. Estimated Blood Loss 100 Drains No Packing No Pathology None sent Complications No immediate complications Condition Stable Disposition PACU
[2022-05-07 14:41] LABS: Glucose Point of Care 171 mg/dl (65-105)
[2022-05-07] MEDS: SODIUM CHLORIDE 0.9% IV 1,000 ML 125 ML IV CONT (16:16)
[2022-05-07] MEDS: PANTOPRAZOLE 40 MG TABLET PO (16:25)
[2022-05-07] MEDS: metFORMIN HCL XR 500 MG TAB.SR.24H PO (16:27)
[2022-05-07] MEDS: ACETAMINOPHEN 500 MG TABLET 1000 MG PO (21:09)
[2022-05-07] MEDS: FAMOTIDINE 20 MG TABLET PO (21:09)
[2022-05-07] MEDS: HEPARIN SODIUM 5,000 UNITS/ML VIAL 5000 UNITS SUB-Q (21:09)
[2022-05-08] VITALS (11 sets, daily range): BP systolic 92–156; BP diastolic 41–65; PULSE 64–85; RESP 16–20; TEMP 36.1–36.8; O2SAT 94–100
[2022-05-08] MEDS: ACETAMINOPHEN 500 MG TABLET 1000 MG PO ×3 (05:11→21:10)
[2022-05-08 06:10] LABS: Basophils Percent Auto 0.1 % (0.2-1.2); Eosinophils Absolute Auto 0.1 K/mm3 (0-0.3); Hematocrit 21.6 % (37.0-47.0); Immature Granulocyte Absolute 0.04 K/mm3 (0.00-0.031); Immature Granulocyte Percent A 0.5 % (0-0.5); Lymphocytes Absolute Auto 1.32 K/mm3 (0.9-3.2); Lymphocytes Percent Auto 14.9 % (18.3-44.2); Mean Corpuscular HGB Conc 31.9 g/dl (32-36); Mean Corpuscular Hemoglobin 35.4 pg (26-34); Mean Corpuscular Volume 110.8 fl (80-100); Monocytes Absolute Auto 0.5 K/mm3 (0.1-0.6); Monocytes Percent Auto 5.5 % (2.6-8.5); Neutrophils Absolute Auto 6.9 K/mm3 (1.3-6.7); Platelet Count Result 168 k/mm3 (150-375); Red Blood Count 1.95 M/mm3 (4.2-5.4); Red Cell Distribution Width 17.8 % (11.5-14.5); White Blood Count 8.9 K/mm3 (4.5-10.0)
[2022-05-08 06:26] LABS: Alanine Aminotransferase 11 U/L (6-35); Albumin Level 2.4 g/dL (3.5-5.1); Alkaline Phosphatase 45 U/L (38-126); Anion Gap 2 mmol/L (8-16); Aspartate Amino Transferase 12 U/L (14-36); Bilirubin,Total 0.4 mg/dL (0.2-1.3); Blood Urea Nitrogen 18 mg/dL (7-17); Calcium 7.3 mg/dL (8.4-10.2); Carbon Dioxide 25 mmol/L (22-30); Chloride 104 mmol/L (98-107); Estimated CRCL calculation 43 ml/min; Estimated Glomerular Filt Rate > 60; Glucose 159 mg/dL (65-110); Magnesium 1.9 mg/dL (1.6-2.3); Potassium 3.7 mmol/L (3.4-5.0); Sodium 131 mmol/L (137-145)
[2022-05-08 06:38] LABS: Hemoglobin 6.9 g/dL (12.0-15.0)
[2022-05-08 06:39] LABS: Anisocytosis 1+ (NORMAL); Platelet Estimate Adequate (Adequate)
--- NOTE | 2022-05-08 08:49 | PM.IMPN ---
Progress Note: A&P Assessment and Plan (1) Closed fracture of right hip: Code(s): S72.001A - Fracture of unspecified part of neck of right femur, initial encounter for closed fracture Status: Deleted Assessment and Plan: Postop day 1 ORIF right hip Hemoglobin 6.9 today, currently being transfused, monitor hemoglobin closely, goal would be greater than 9-10 due to history of heart disease (2) CHF (congestive heart failure): Code(s): I50.9 - Heart failure, unspecified Status: Acute Assessment and Plan: EF 35-40%, combined diastolic and systolic heart failure, appears compensated, continue metoprolol (3) Cardiomyopathy: Code(s): I42.9 - Cardiomyopathy, unspecified Status: Acute Assessment and Plan: See above (4) Tobacco dependence: Code(s): F17.200 - Nicotine dependence, unspecified, uncomplicated Status: Acute (5) Chronic obstructive pulmonary disease: Code(s): J44.9 - Chronic obstructive pulmonary disease, unspecified Status: Acute Assessment and Plan: Stable (6) Type 2 diabetes mellitus: Code(s): E11.9 - Type 2 diabetes mellitus without complications Status: Acute Assessment and Plan: Hold metformin, continue Accu-Cheks and sliding scale insulin (7) Coronary artery disease: Code(s): I25.10 - Atherosclerotic heart disease of [place] coronary artery without angina pectoris Status: Acute Assessment and Plan: Distant PCI in 1995 (8) Colon cancer metastasized to liver: Code(s): C18.9 - Malignant neoplasm of colon, unspecified; C78.7 - Secondary malignant neoplasm of liver and intrahepatic bile duct Status: Acute Assessment and Plan: Currently receiving chemotherapy, last dose last Friday (9) Chronic anemia: Code(s): D64.9 - Anemia, unspecified Status: Acute Assessment and Plan: Likely secondary to multiple comorbidities including metastatic colon cancer, coronary artery disease and GI bleed (10) Hypertension: Code(s): I10 - Essential (primary) hypertension Status: Acute Assessment and Plan: Currently hypotensive, hold antihypertensives for now (11) Hyperlipidemia: Code(s): E78.5 - Hyperlipidemia, unspecified Status: Acute (12) Gastric ulcer: Code(s): K25.9 - Gastric ulcer, unspecified as acute or chronic, without hemorrhage or perforation Status: Acute Assessment and Plan: History of GI bleed likely secondary to Plavix in January 2022, this has been discontinued in favor of aspirin for antiplatelet monotherapy (13) Peripheral vascular disease: Code(s): I73.9 - Peripheral vascular disease, unspecified Status: Acute Assessment and Plan: History of abdominal aortic stent placement, currently on monotherapy with aspirin after having GI bleed with Plavix Plan 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 No overnight events noted. No chest pain or shortness of breath. No nausea, vomiting or diarrhea. No fevers or chills. Review of Systems Review of Systems: 12 point review of systems was assessed and was negative except as noted in the HPI Exam Narrative: General: No acute distress, alert and oriented per baseline HEENT: Atraumatic, normocephalic, mucous membranes moist CV: Regular rate and rhythm, S1, S2 Lungs: Clear to auscultation bilaterally, no rales or crackles noted, no wheezes, good air entry Abdomen: Soft, nontender, nondistended Extremities: Normal to inspection Skin: No rashes noted, no lesions or wounds seen Psych: Euthymic, normal affect Objective Data Vital Signs Vital Signs: Vital Signs - 24 hr 05/07/22 14:23 05/07/22 14:35 05/07/22 14:50 Temperature 97.6 F Pulse Rate 98 94 84 Respiratory Rate 16 16 16 Blood Pressure 133/64 123/
[2022-05-08] MEDS: allopurinoL 100 MG TABLET PO ×2 (08:51→17:08)
[2022-05-08] MEDS: SENNA/DOCUSATE SODIUM TABLET 2 TAB PO ×2 (08:52→17:09)
[2022-05-08] MEDS: ASPIRIN 81 MG ENTERIC TABLET PO (08:52)
[2022-05-08] MEDS: DULoxetine HCL 30 MG CAPSULE.DR PO (08:52)
[2022-05-08] MEDS: METOPROLOL SUCCINATE EXT REL 25 MG TABCR PO (08:53)
[2022-05-08] MEDS: POTASSIUM CHLORIDE 10 MEQ TABLET.ER PO (08:53)
[2022-05-08] MEDS: ATORVASTATIN 20 MG TABLET PO (08:53)
[2022-05-08] MEDS: PANTOPRAZOLE 40 MG TABLET PO ×2 (08:54→17:08)
[2022-05-08] MEDS: polyethylene glycoL 3350 17 GM POWD.PACK PO (08:54)
[2022-05-08] MEDS: LOSARTAN POTASSIUM 50 MG TABLET PO (08:54)
[2022-05-08] MEDS: FERROUS SULFATE 324 MG TABLET PO (08:54)
[2022-05-08] MEDS: calcitrioL 0.25 MCG CAPSULE PO (08:55)
[2022-05-08] MEDS: FAMOTIDINE 20 MG TABLET PO ×2 (08:55→21:10)
[2022-05-08] MEDS: HEPARIN SODIUM 5,000 UNITS/ML VIAL 5000 UNITS SUB-Q ×2 (09:42→21:10)
--- NOTE | 2022-05-08 10:00 | WPDANESPN ---
Anes - Prog Note Post-Op Date/Time: 05/08/22 10:00 Cardiovascular status: normal Respiratory status: normal Airway patency: baseline Mental status: baseline Post-Op hydration status: normal Vital Signs: Last Vital Signs Temp 36.1 C L 05/08/22 04:58 Pulse 84 05/08/22 08:53 Resp 18 05/08/22 04:58 BP 92/49 L 05/08/22 04:58 Pulse Ox 94 05/08/22 04:58 O2 Del Method Room Air 05/08/22 08:29 O2 Flow Rate 8 05/07/22 14:50 Pain Score (VAS): 3 I/O: Intake & Output 05/07/22 05/08/22 05/08/22 23:59 07:59 15:59 Intake Total 75 1290 450 Output Total 350 Balance 75 940 450 Laboratory Tests 05/08/22 05:58 05/08/22 05:58 05/07/22 05/07/22 05/08/22 12:23 14:37 05:58 WBC 8.9 RBC 1.95 L Hgb 6.9 L* Hct 21.6 L MCV 110.8 H MCH 35.4 H MCHC 31.9 L RDW 17.8 H Plt Count 168 MPV 10.0 Immature Gran % (Auto) 0.5 Neut % (Auto) 78.0 H Lymph % (Auto) 14.9 L [place] % (Auto) 5.5 Eos % (Auto) 1.0 Baso % (Auto) 0.1 L Lymph # (Auto) 1.32 [place] # (Auto) 0.5 Eos # (Auto) 0.1 Baso # (Auto) 0.0 Abs Immat Gran (auto) 0.04 H Absolute Neuts (auto) 6.9 H Absolute Nucleated RBC 0.0 Nucleated RBC % 0.0 Platelet Estimate Adequate Anisocytosis 1+ Sodium Potassium Chloride Carbon Dioxide Anion Gap BUN Creatinine Estim Creat Clear Calc Estimated GFR Glucose POC Capillary Glucose 171 H Calcium Magnesium Total Bilirubin AST ALT Alkaline Phosphatase Total Protein Albumin Blood Type B Positive Antibody Screen Negative Crossmatch See Detail 05/08/22 05:58 WBC RBC Hgb Hct MCV MCH MCHC RDW Plt Count MPV Immature Gran % (Auto) Neut % (Auto) Lymph % (Auto) [place] % (Auto) Eos % (Auto) Baso % (Auto) Lymph # (Auto) [place] # (Auto) Eos # (Auto) Baso # (Auto) Abs Immat Gran (auto) Absolute Neuts (auto) Absolute Nucleated RBC Nucleated RBC % Platelet Estimate Anisocytosis Sodium 131 L Potassium 3.7 Chloride 104 Carbon Dioxide 25 Anion Gap 2 L BUN 18 H Creatinine 0.70 Estim Creat Clear Calc 43 Estimated GFR > 60 Glucose 159 H POC Capillary Glucose Calcium 7.3 L Magnesium 1.9 Total Bilirubin 0.4 AST 12 L ALT 11 Alkaline Phosphatase 45 Total Protein 5.0 L Albumin 2.4 L Blood Type Antibody Screen Crossmatch Post-procedural complaints: none Patient Feedback: Patient satisfied with anesthetic care.
--- NOTE | 2022-05-08 12:39 | PM.PNORT ---
Progress Note: A&P Assessment and Plan (1) Intertrochanteric fracture of right hip: Code(s): S72.141A - Displaced intertrochanteric fracture of right femur, initial encounter for closed fracture Status: Acute Plan 81-year-old female postop day 1 after ORIF of right intertrochanteric femur fracture with a trochanteric nail. Participating with therapy and is following with her touchdown weight-bearing status well. Incision site is clean and dry. She seems to be doing well with scheduled Tylenol for pain relief. 81 mg baby aspirin for DVT prophylaxis due to anemia and history of gastric ulcer. Plan to follow-up in the office in 2 weeks for wound check and staple removal. Subjective Subjective Date/Time Seen: 05/08/22 12:39 Post Op day: 1 Principal diagnosis: s/p ORIF right IT hip fracture with trochanteric nail Interval history: 81-year-old female postop day 1 after ORIF right intertrochanteric hip fracture with trochanteric nail. Uneventful overnight stay. Participated with therapy this morning. She did report an increase in pain this morning but states it has subsided with her scheduled Tylenol. Review of Systems Constitutional: Constitutional: Reports as per HPI Exam Const: General: comfortable Resp: Effort & Inspection: normal respiratory effort GI: Inspection: non-distended Extrem: Other: Exam of the right hip reveals a clean and dry dressing. No bruising or swelling to the distal leg. No numbness or tingling down the leg. She is able to wiggle toes without difficulty. Calves negative. Neurovascular status intact Psych: Mental Status: mental status grossly normal Objective Data Vital Signs Vital Signs: Vital Signs - 24 hr 05/07/22 14:23 05/07/22 14:35 05/07/22 14:50 Temperature 97.6 F Pulse Rate 98 94 84 Respiratory Rate 16 16 16 Blood Pressure 133/64 123/52 L 120/54 L Pulse Oximetry 100 100 100 Oxygen Delivery Simple Face Mask Simple Face Mask Simple Face Mask Oxygen Flow Rate 8 8 8 05/07/22 14:55 05/07/22 15:05 05/07/22 15:20 Temperature Pulse Rate 89 84 Respiratory Rate 16 14 Blood Pressure 124/59 L 128/64 Pulse Oximetry 91 93 Oxygen Delivery Room Air Room Air Room Air Oxygen Flow Rate 05/07/22 15:35 05/07/22 15:50 05/07/22 16:05 Temperature Pulse Rate 79 92 Respiratory Rate 14 12 14 Blood Pressure 112/57 L 116/51 L Pulse Oximetry 94 93 93 Oxygen Delivery Room Air Room Air Room Air Oxygen Flow Rate 05/07/22 16:05 05/07/22 16:20 05/07/22 16:50 Temperature 97.2 F L 97.3 F L 97.8 F Pulse Rate 91 91 77 Respiratory Rate 16 18 16 Blood Pressure 113/52 L 118/43 L 114/45 L Pulse Oximetry 94 96 95 Oxygen Delivery Oxygen Flow Rate 05/07/22 17:50 05/07/22 20:37 05/07/22 20:00 Temperature 98.8 F 97.0 F L Pulse Rate 79 79 Respiratory Rate 16 16 Blood Pressure 116/43 L 107/48 L Pulse Oximetry 95 93 Oxygen Delivery Room Air Oxygen Flow Rate 05/07/22 23:52 05/08/22 04:58 05/08/22 08:29 Temperature 97.9 F 97 F L Pulse Rate 77 82 Respiratory Rate 16 18 Blood Pressure 92/51 L 92/49 L Pulse Oximetry 97 94 Oxygen Delivery Room Air Oxygen Flow Rate 05/08/22 08:53 05/08/22 10:03 05/08/22 08:08 Temperature 97.6 F Pulse Rate 84 65 Respiratory Rate 20 Blood Pressure 103/41 L Pulse Oximetry 100 Oxygen Delivery Room Air Oxygen Flow Rate 05/08/22 10:18 Temperature 98.1 F Pulse Rate 74 Respiratory Rate 20 Blood Pressure 127/50 L Pulse Oximetry 100 Oxygen Delivery Oxygen Flow Rate Intake/Output Intake/Output: Intake & Output 05/05/22 05/06/22 05/07/22 05/08/22 23:59 23:59 23:59 23:59 Intake Total 8626 491 1314 Output Total 800 590 350 Balance 111 575 2927 Meds/Results Medications: Active Medications Generic Name Dose Route Start Last Admin Trade Name Cas PRN Reason Stop Dose Admin Acetaminophen 1,000 mg 05/07/22 22:00 05/08/22 05:11 Acetaminophen 500 M
--- NOTE | 2022-05-08 13:35 | PC.NURSE ---
Blood infusion successfully completed and tegaderm dressing was changed.
[2022-05-08] MEDS: ASPIRIN 325 MG ENTERIC TABLET PO (17:08)
[2022-05-08] MEDS: metFORMIN HCL XR 500 MG TAB.SR.24H PO (17:08)
[2022-05-09 05:47] VITALS: BP 122/50; PULSE 82; RESP 18; TEMP 36.6; O2SAT 99
[2022-05-09] MEDS: ACETAMINOPHEN 500 MG TABLET 1000 MG PO ×3 (05:54→21:26)
--- NOTE | 2022-05-09 07:26 | PM.IMPN ---
Progress Note: A&P Assessment and Plan (1) Closed fracture of right hip: Code(s): S72.001A - Fracture of unspecified part of neck of right femur, initial encounter for closed fracture Status: Deleted Assessment and Plan: Postop day 2 ORIF right hip Hemoglobin 6.9 yesterday, no repeat hgb ordered after transfusion, recheck ordered now, monitor hemoglobin closely, goal would be greater than 9-10 due to history of heart disease 05/09: Hemoglobin 9.1 this morning, stable for discharge to rehab facility when insurance authorization completed (2) CHF (congestive heart failure): Code(s): I50.9 - Heart failure, unspecified Status: Acute Assessment and Plan: EF 35-40%, combined diastolic and systolic heart failure, appears compensated, continue metoprolol (3) Cardiomyopathy: Code(s): I42.9 - Cardiomyopathy, unspecified Status: Acute Assessment and Plan: See above (4) Tobacco dependence: Code(s): F17.200 - Nicotine dependence, unspecified, uncomplicated Status: Acute (5) Chronic obstructive pulmonary disease: Code(s): J44.9 - Chronic obstructive pulmonary disease, unspecified Status: Acute Assessment and Plan: Stable (6) Type 2 diabetes mellitus: Code(s): E11.9 - Type 2 diabetes mellitus without complications Status: Acute Assessment and Plan: Hold metformin, continue Accu-Cheks and sliding scale insulin (7) Coronary artery disease: Code(s): I25.10 - Atherosclerotic heart disease of [place] coronary artery without angina pectoris Status: Acute Assessment and Plan: Distant PCI in 1995 (8) Colon cancer metastasized to liver: Code(s): C18.9 - Malignant neoplasm of colon, unspecified; C78.7 - Secondary malignant neoplasm of liver and intrahepatic bile duct Status: Acute Assessment and Plan: Currently receiving chemotherapy, last dose last Friday (9) Chronic anemia: Code(s): D64.9 - Anemia, unspecified Status: Acute Assessment and Plan: Likely secondary to multiple comorbidities including metastatic colon cancer, coronary artery disease and GI bleed (10) Hypertension: Code(s): I10 - Essential (primary) hypertension Status: Acute Assessment and Plan: Currently hypotensive, hold antihypertensives for now (11) Hyperlipidemia: Code(s): E78.5 - Hyperlipidemia, unspecified Status: Acute (12) Gastric ulcer: Code(s): K25.9 - Gastric ulcer, unspecified as acute or chronic, without hemorrhage or perforation Status: Acute Assessment and Plan: History of GI bleed likely secondary to Plavix in January 2022, this has been discontinued in favor of aspirin for antiplatelet monotherapy (13) Peripheral vascular disease: Code(s): I73.9 - Peripheral vascular disease, unspecified Status: Acute Assessment and Plan: History of abdominal aortic stent placement, currently on monotherapy with aspirin after having GI bleed with Plavix Plan History of Jackson's palsy DVT prophylaxis heparin subQ Code status full code Subjective Date/time seen: 05/09/22 07:26 Interval history: Pain controlled. Had a bowel movement today. No overnight events noted. No chest pain or shortness of breath. No nausea, vomiting or diarrhea. No fevers or chills. Review of Systems Review of Systems: 12 point review of systems was assessed and was negative except as noted in the HPI Exam Narrative: General: No acute distress, alert and oriented per baseline HEENT: Atraumatic, normocephalic, mucous membranes moist CV: Regular rate and rhythm, S1, S2 Lungs: Clear to auscultation bilaterally, no rales or crackles noted, no wheezes, good air entry Abdomen: Soft, nontender, nondistended Extremities: Normal to inspection Skin: No rashes noted, no lesions or wounds seen Psych: Euthymic, normal affect Objective Data Vital Signs
--- NOTE | 2022-05-09 08:20 | PCOTNOTE ---
Attempted to see patient at this time, however patient refused stating, I just got back to bed. I got up to use the bathroom and just laid down. Encouraged patient to sit up for breakfast however patient declined.
[2022-05-09 08:23] LABS: Basophils Percent Auto 0.3 % (0.2-1.2); Eosinophils Absolute Auto 0.2 K/mm3 (0-0.3); Eosinophils Percent Auto 2.4 % (0-4.4); Hematocrit 27.3 % (37.0-47.0); Hemoglobin 9.1 g/dL (12.0-15.0); Immature Granulocyte Absolute 0.04 K/mm3 (0.00-0.031); Immature Granulocyte Percent A 0.5 % (0-0.5); Lymphocytes Absolute Auto 1.67 K/mm3 (0.9-3.2); Mean Corpuscular HGB Conc 33.3 g/dl (32-36); Mean Corpuscular Hemoglobin 33.6 pg (26-34); Mean Corpuscular Volume 100.7 fl (80-100); Monocytes Absolute Auto 0.7 K/mm3 (0.1-0.6); Monocytes Percent Auto 8.9 % (2.6-8.5); Neutrophils Absolute Auto 5.3 K/mm3 (1.3-6.7); Neutrophils Percent Auto 66.9 % (45.5-73.1); Platelet Count Result 187 k/mm3 (150-375); Red Blood Count 2.71 M/mm3 (4.2-5.4); Red Cell Distribution Width 22.7 % (11.5-14.5)
[2022-05-09 08:51] LABS: Anisocytosis 1+ (NORMAL); Platelet Estimate Adequate (Adequate)
[2022-05-09] MEDS: DULoxetine HCL 30 MG CAPSULE.DR PO (09:18)
[2022-05-09] MEDS: PANTOPRAZOLE 40 MG TABLET PO ×2 (09:18→16:01)
[2022-05-09] MEDS: SENNA/DOCUSATE SODIUM TABLET 2 TAB PO ×2 (09:18→16:01)
[2022-05-09] MEDS: FAMOTIDINE 20 MG TABLET PO ×2 (09:18→21:26)
[2022-05-09 09:19] VITALS: PULSE 77
[2022-05-09] MEDS: calcitrioL 0.25 MCG CAPSULE PO (09:19)
[2022-05-09] MEDS: ASPIRIN 325 MG ENTERIC TABLET PO (09:19)
[2022-05-09] MEDS: METOPROLOL SUCCINATE EXT REL 25 MG TABCR PO (09:19)
[2022-05-09] MEDS: POTASSIUM CHLORIDE 10 MEQ TABLET.ER PO (09:19)
[2022-05-09] MEDS: LOSARTAN POTASSIUM 50 MG TABLET PO (09:19)
[2022-05-09] MEDS: ATORVASTATIN 20 MG TABLET PO (09:19)
[2022-05-09] MEDS: allopurinoL 100 MG TABLET PO ×2 (09:20→16:01)
[2022-05-09] MEDS: polyethylene glycoL 3350 17 GM POWD.PACK PO (09:20)
[2022-05-09] MEDS: FERROUS SULFATE 324 MG TABLET PO (09:20)
[2022-05-09] MEDS: HEPARIN SODIUM 5,000 UNITS/ML VIAL 5000 UNITS SUB-Q ×2 (09:22→21:27)
--- NOTE | 2022-05-09 10:07 | PM.DS ---
DS: Discharge Diagnosis Discharge Diagnosis (1) Closed fracture of right hip: Code(s): S72.001A - Fracture of unspecified part of neck of right femur, initial encounter for closed fracture Status: Deleted Assessment and Plan: Postop day 2 ORIF right hip Hemoglobin 6.9 yesterday, no repeat hgb ordered after transfusion, recheck ordered now, monitor hemoglobin closely, goal would be greater than 9-10 due to history of heart disease 05/09: Hemoglobin 9.1 this morning, stable for discharge to rehab facility when insurance authorization completed (2) CHF (congestive heart failure): Code(s): I50.9 - Heart failure, unspecified Status: Acute Assessment and Plan: EF 35-40%, combined diastolic and systolic heart failure, appears compensated, continue metoprolol (3) Cardiomyopathy: Code(s): I42.9 - Cardiomyopathy, unspecified Status: Acute Assessment and Plan: See above (4) Tobacco dependence: Code(s): F17.200 - Nicotine dependence, unspecified, uncomplicated Status: Acute (5) Chronic obstructive pulmonary disease: Code(s): J44.9 - Chronic obstructive pulmonary disease, unspecified Status: Acute Assessment and Plan: Stable (6) Type 2 diabetes mellitus: Code(s): E11.9 - Type 2 diabetes mellitus without complications Status: Acute Assessment and Plan: Hold metformin, continue Accu-Cheks and sliding scale insulin (7) Coronary artery disease: Code(s): I25.10 - Atherosclerotic heart disease of [place] coronary artery without angina pectoris Status: Acute Assessment and Plan: Distant PCI in 1995 (8) Colon cancer metastasized to liver: Code(s): C18.9 - Malignant neoplasm of colon, unspecified; C78.7 - Secondary malignant neoplasm of liver and intrahepatic bile duct Status: Acute Assessment and Plan: Currently receiving chemotherapy, last dose last Friday (9) Chronic anemia: Code(s): D64.9 - Anemia, unspecified Status: Acute Assessment and Plan: Likely secondary to multiple comorbidities including metastatic colon cancer, coronary artery disease and GI bleed (10) Hypertension: Code(s): I10 - Essential (primary) hypertension Status: Acute Assessment and Plan: Currently hypotensive, hold antihypertensives for now (11) Hyperlipidemia: Code(s): E78.5 - Hyperlipidemia, unspecified Status: Acute (12) Gastric ulcer: Code(s): K25.9 - Gastric ulcer, unspecified as acute or chronic, without hemorrhage or perforation Status: Acute Assessment and Plan: History of GI bleed likely secondary to Plavix in January 2022, this has been discontinued in favor of aspirin for antiplatelet monotherapy (13) Peripheral vascular disease: Code(s): I73.9 - Peripheral vascular disease, unspecified Status: Acute Assessment and Plan: History of abdominal aortic stent placement, currently on monotherapy with aspirin after having GI bleed with Plavix Plan History of Jackson's palsy DVT prophylaxis heparin subQ Code status full code DS: Summary Time Spent with Patient Time attestation: Total time spent providing and/or coordinating discharge services: Exam Narrative: General: No acute distress, alert and oriented per baseline HEENT: Atraumatic, normocephalic, mucous membranes moist CV: Regular rate and rhythm, S1, S2 Lungs: Clear to auscultation bilaterally, no rales or crackles noted, no wheezes, good air entry Abdomen: Soft, nontender, nondistended Extremities: Normal to inspection Skin: No rashes noted, no lesions or wounds seen Psych: Euthymic, normal affect DS: Data Data Completed and Pending Labs on day of discharge: Labs from last 24 hours 05/09/22 05/07/22 08:00 12:23 WBC 8.0 RBC 2.71 L Hgb 9.1 L Hct 27.3 L MCV 100.7 H D MCH 33.6 D MCHC 33.3 RDW 22.7 H Plt Count 187 MPV
--- NOTE | 2022-05-09 12:47 | PM.PNORT ---
Progress Note: A&P Assessment and Plan (1) Intertrochanteric fracture of right hip: Code(s): S72.141A - Displaced intertrochanteric fracture of right femur, initial encounter for closed fracture Status: Acute Plan 81-year-old female postop day 2 after ORIF of right intertrochanteric femur fracture with a trochanteric nail. Participating with therapy and is following with her touchdown weight-bearing status well. Incision site is clean and dry. Tylenol scheduled for pain relief. She has a follow-up appointment scheduled in 2 weeks for wound check and staple removal. Subjective Subjective Date/Time Seen: 05/09/22 12:47 Post Op day: 2 Principal diagnosis: s/p ORIF right IT hip fracture with trochanteric nail Interval history: 81-year-old female postop day 2 after ORIF right intertrochanteric hip fracture with trochanteric nail. Uneventful overnight. Participated well with therapy this morning. Resting quietly during exam today. Review of Systems Constitutional: Constitutional: Reports as per HPI Exam Const: General: comfortable Resp: Effort & Inspection: normal respiratory effort GI: Inspection: non-distended Extrem: Other: Exam of the right hip reveals a clean and dry dressing. No bruising or swelling to the distal leg. No numbness or tingling down the leg. Neurovascular status intact right lower extremity intact. Psych: Mental Status: mental status grossly normal Objective Data Vital Signs Vital Signs: Vital Signs - 24 hr 05/08/22 12:48 05/08/22 14:00 05/08/22 14:42 Temperature 97.3 F L 98.1 F Pulse Rate 75 73 Respiratory Rate 20 20 Blood Pressure 156/65 H 124/55 L Pulse Oximetry 100 100 98 Oxygen Delivery Room Air 05/08/22 18:00 05/08/22 20:52 05/08/22 21:00 Temperature 98.2 F 98.2 F Pulse Rate 85 73 Respiratory Rate 16 18 Blood Pressure 124/48 L 103/65 Pulse Oximetry 95 99 Oxygen Delivery Room Air 05/09/22 05:47 05/09/22 09:19 05/09/22 09:15 Temperature 97.8 F Pulse Rate 82 77 Respiratory Rate 18 Blood Pressure 122/50 L Pulse Oximetry 99 Oxygen Delivery Room Air Intake/Output Intake/Output: Intake & Output 05/06/22 05/07/22 05/08/22 08/18/22 23:59 23:59 23:59 23:59 Intake Total 8251 819 2095 360 Output Total 800 590 350 Balance 890 994 2635 360 Meds/Results Medications: Active Medications Generic Name Dose Route Start Last Admin Trade Name Freq PRN Reason Stop Dose Admin Acetaminophen 1,000 mg 05/07/22 22:00 05/09/22 05:54 Acetaminophen 500 Mg Tablet PO 1,000 mg Q8H [facility] Administration Allopurinol 100 mg 05/07/22 09:00 05/09/22 09:20 Allopurinol 100 Mg Tablet PO 100 mg BID [facility] Administration Aspirin 325 mg 05/08/22 15:20 05/09/22 09:19 Aspirin 325 Mg Enteric Tablet PO 325 mg DAILY [facility] Administration Atorvastatin Calcium 20 mg 05/07/22 09:00 05/09/22 09:19 Atorvastatin 20 Mg Tablet PO 20 mg DAILY [facility] Administration Calcitriol 0.25 mcg 05/07/22 09:00 05/09/22 09:19 Calcitriol 0.25 Mcg Capsule PO 0.25 mcg DAILY [facility] Administration Cyanocobalamin 1,000 mcg 05/23/22 09:00 Cyanocobalamin Inj 1,000 Mcg/Ml Vial IM MONTHLY [facility] Duloxetine HCl 30 mg 05/07/22 09:00 05/09/22 09:18 Duloxetine Hcl 30 Mg Capsule.Dr PO 30 mg DAILY [facility] Administration Ergocalciferol 50,000 unit 05/12/22 09:00 Ergocalciferol 50,000 Unit Capsule PO Da Silva@0900 [facility] Famotidine 20 mg 05/07/22 21:00 05/09/22 09:18 Famotidine 20 Mg Tablet PO 20 mg Q12HR [facility] Administration Ferrous Sulfate 324 mg 05/07/22 09:00 05/09/22 09:20 Ferrous Sulfate 324 Mg Tablet PO 324 mg DAILY [facility] Administration Heparin Sodium (Beef Lung) 50 units 05/10/22 09:00 Heparin Flush 50 Units/5 Ml Syringe IV PUSH QAM [facility] Heparin Sodium (Beef Lung) 50 units 05/09/22 10:52 Heparin Flush 50 Units/5 Ml Syringe IV PUSH PRN PRN after intermittent infusion
[2022-05-09 14:05] VITALS: BP 103/48; PULSE 82; RESP 16; TEMP 35.8; O2SAT 100
[2022-05-09] MEDS: CENTRAL LINE FLUSH 10 ML IV PUSH ×2 (14:32→21:27)
[2022-05-09 14:43] LABS: Hematocrit 24.6 % (37.0-47.0); Hemoglobin 8.1 g/dL (12.0-15.0)
[2022-05-09] MEDS: metFORMIN HCL XR 500 MG TAB.SR.24H PO (16:01)
--- NOTE | 2022-05-09 16:30 | PC.NURSE ---
Received call from care coordination stating that the patient has not received insurance authorization yet for [facility]. Patient will not be able to be discharged this evening.
--- NOTE | 2022-05-09 16:40 | PC.NURSE ---
On 05/09/22, the License pending nurse, Ronan Dill, provided care and completed [employer] documentation on this patient. I have reviewed the License pending nurse's documentation and agree with the findings.
--- NOTE | 2022-05-09 18:34 | PCCCNOTE ---
jaison with [facility] called and stated that the medical center representative wanted to denied the authorization for the SNF that was requested. Jaison stated that we had until 12pm on 05/10 to schedule a peer to peer. this cc called and left a voicemail with [facility] at 1830 requested a p2p with their MD and Dr Acosta. also left her phone #.
[2022-05-09 21:00] VITALS: BP 105/51; PULSE 80; RESP 16; TEMP 35.9; O2SAT 98
[2022-05-10 03:53] VITALS: BP 126/59; PULSE 80; RESP 16; TEMP 36.2; O2SAT 97
[2022-05-10 05:34] LABS: Basophils Percent Auto 0.3 % (0.2-1.2); Eosinophils Absolute Auto 0.3 K/mm3 (0-0.3); Eosinophils Percent Auto 3.9 % (0-4.4); Hematocrit 24.1 % (37.0-47.0); Hemoglobin 7.8 g/dL (12.0-15.0); Immature Granulocyte Absolute 0.04 K/mm3 (0.00-0.031); Immature Granulocyte Percent A 0.6 % (0-0.5); Lymphocytes Absolute Auto 1.53 K/mm3 (0.9-3.2); Lymphocytes Percent Auto 23.6 % (18.3-44.2); Mean Corpuscular HGB Conc 32.4 g/dl (32-36); Mean Corpuscular Hemoglobin 33.2 pg (26-34); Mean Corpuscular Volume 102.6 fl (80-100); Mean Platelet Volume 10.1 fl (7.4-10.4); Monocytes Absolute Auto 0.6 K/mm3 (0.1-0.6); Monocytes Percent Auto 9.3 % (2.6-8.5); Neutrophils Percent Auto 62.3 % (45.5-73.1); Platelet Count Result 173 k/mm3 (150-375); Red Blood Count 2.35 M/mm3 (4.2-5.4); Red Cell Distribution Width 21.8 % (11.5-14.5); White Blood Count 6.5 K/mm3 (4.5-10.0)
[2022-05-10] MEDS: ACETAMINOPHEN 500 MG TABLET 1000 MG PO ×3 (06:37→21:33)
[2022-05-10] MEDS: CENTRAL LINE FLUSH 10 ML IV PUSH ×2 (06:37→21:33)
--- NOTE | 2022-05-10 09:17 | PM.PNORT ---
Progress Note: A&P Assessment and Plan (1) Intertrochanteric fracture of right hip: Code(s): S72.141A - Displaced intertrochanteric fracture of right femur, initial encounter for closed fracture Status: Acute Plan 81-year-old female postop day three ORIF right IT hip fracture. Doing well. Will follow up with me in office in about two weeks for staple removal. No change in activity level. Discussed again with patient. Following. Subjective Subjective Date/Time Seen: 05/10/22 09:17 Post Op day: 3 Principal diagnosis: Dx: Status post ORIF right IT hip fracture Interval history: 81-year-old female postop day three ORIF right IT fracture. No complaints other than some soreness in her thigh. Tolerating being up in the chair and therapy. Exam Const: General: cooperative, alert and awake Orientation/consciousness: patient oriented x3 HENMT: Head: normal to inspection Ears: hearing grossly normal bilaterally Resp: Effort & Inspection: able to speak in complete sentences GI: Inspection: non-distended GI Palp: No abdominal tenderness Neuro: General: patient oriented x3 Extrem: Other: Exam of right lower extremity shows dry incisions over the lateral portion of the upper thigh with minimal swelling and no bruising. Calves negative. Neurovascular status grossly intact both lower extremities. Psych: Mental Status: mental status grossly normal Objective Data Vital Signs Vital Signs: Vital Signs - 24 hr 05/09/22 09:19 05/09/22 14:05 05/09/22 21:00 Temperature 96.5 F L 96.7 F L Pulse Rate 77 82 80 Respiratory Rate 16 16 Blood Pressure 103/48 L 105/51 L Pulse Oximetry 100 98 Oxygen Delivery 05/09/22 21:30 05/10/22 03:53 Temperature 97.1 F L Pulse Rate 80 Respiratory Rate 16 Blood Pressure 126/59 L Pulse Oximetry 97 Oxygen Delivery Room Air Intake/Output Intake/Output: Intake & Output 05/07/22 05/08/22 05/09/22 05/10/22 23:59 23:59 23:59 23:59 Intake Total 775 / 775 2409 / 2409 840 / 840 120 / 120 Output Total 590 / 190.0 350 / 350 100 / 100 Balance 185 / 585.0 9 / 2059 740 / 740 120 / 120 Meds/Results Medications: Active Medications Generic Name Dose Route Start Last Admin Trade Name Freq PRN Reason Stop Dose Admin Acetaminophen 1,000 mg 05/07/22 22:00 05/10/22 06:37 Acetaminophen 500 Mg Tablet PO 1,000 mg Q8H LASHON Administration Allopurinol 100 mg 05/07/22 09:00 05/09/22 16:01 Allopurinol 100 Mg Tablet PO 100 mg BID LASHON Administration Aspirin 325 mg 05/08/22 15:20 05/09/22 09:19 Aspirin 325 Mg Enteric Tablet PO 325 mg DAILY LASHON Administration Atorvastatin Calcium 20 mg 05/07/22 09:00 05/09/22 09:19 Atorvastatin 20 Mg Tablet PO 20 mg DAILY LASHON Administration Calcitriol 0.25 mcg 05/07/22 09:00 05/09/22 09:19 Calcitriol 0.25 Mcg Capsule PO 0.25 mcg DAILY LASHON Administration Cyanocobalamin 1,000 mcg 05/23/22 09:00 Cyanocobalamin Inj 1,000 Mcg/Ml Vial IM [facility] Duloxetine HCl 30 mg 05/07/22 09:00 05/09/22 09:18 Duloxetine Hcl 30 Mg Capsule.Dr PO 30 mg DAILY [facility] Administration Ergocalciferol 50,000 unit 05/12/22 09:00 Ergocalciferol 50,000 Unit Capsule PO Da Silva@[email or web address] [facility] Famotidine 20 mg 05/07/22 21:00 05/09/22 21:26 Famotidine 20 Mg Tablet PO 20 mg Q12HR [facility] Administration Ferrous Sulfate 324 mg 05/07/22 09:00 05/09/22 09:20 Ferrous Sulfate 324 Mg Tablet PO 324 mg DAILY LASHON Administration Heparin Sodium (Beef Lung) 50 units 05/10/22 09:00 Heparin Flush 50 Units/5 Ml Syringe IV PUSH QAM LASHON Heparin Sodium (Beef Lung) 50 units 05/09/22 10:52 Heparin Flush 50 Units/5 Ml Syringe IV PUSH PRN PRN after intermittent infusion Heparin Sodium (Beef Lung) 50 units 05/09/22 10:52 05/09/22 14:26 Heparin Flush 50 Units/5 Ml Syringe IV PUSH 50 units PRN PRN Administration after blood draws Heparin Sodium (P
--- NOTE | 2022-05-10 10:12 | PM.IMPN ---
Progress Note: A&P Assessment and Plan (1) Closed fracture of right hip: Code(s): S72.001A - Fracture of unspecified part of neck of right femur, initial encounter for closed fracture Status: Deleted Assessment and Plan: Postop day 2 ORIF right hip Hemoglobin 6.9 yesterday, no repeat hgb ordered after transfusion, recheck ordered now, monitor hemoglobin closely, goal would be greater than 9-10 due to history of heart disease 05/09: Hemoglobin 9.1 this morning, stable for discharge to rehab facility when insurance authorization completed 05/10: Hemoglobin dropped down to 7.8 today, recheck later this afternoon, may need another transfusion (2) CHF (congestive heart failure): Code(s): I50.9 - Heart failure, unspecified Status: Acute Assessment and Plan: EF 35-40%, combined diastolic and systolic heart failure, appears compensated, continue metoprolol 05/10: Heart failure appears stable, euvolemic (3) Cardiomyopathy: Code(s): I42.9 - Cardiomyopathy, unspecified Status: Acute Assessment and Plan: See above (4) Tobacco dependence: Code(s): F17.200 - Nicotine dependence, unspecified, uncomplicated Status: Acute (5) Chronic obstructive pulmonary disease: Code(s): J44.9 - Chronic obstructive pulmonary disease, unspecified Status: Acute Assessment and Plan: Stable (6) Type 2 diabetes mellitus: Code(s): E11.9 - Type 2 diabetes mellitus without complications Status: Acute Assessment and Plan: Hold metformin, continue Accu-Cheks and sliding scale insulin 05/10: Blood glucose well controlled here, consistently under 180 (7) Coronary artery disease: Code(s): I25.10 - Atherosclerotic heart disease of [place] coronary artery without angina pectoris Status: Acute Assessment and Plan: Distant PCI in 1995 (8) Colon cancer metastasized to liver: Code(s): C18.9 - Malignant neoplasm of colon, unspecified; C78.7 - Secondary malignant neoplasm of liver and intrahepatic bile duct Status: Acute Assessment and Plan: Currently receiving chemotherapy, last dose last Friday, due for next dose soon, will need patient to recover quickly so she can get back to chemotherapy (9) Chronic anemia: Code(s): D64.9 - Anemia, unspecified Status: Acute Assessment and Plan: Likely secondary to multiple comorbidities including metastatic colon cancer, coronary artery disease and GI bleed 05/10: Hemoglobin continues to drop, monitor closely, check hemoglobin q.12h, may need another transfusion (10) Hypertension: Code(s): I10 - Essential (primary) hypertension Status: Acute Assessment and Plan: Currently hypotensive, hold antihypertensives for now 05/10: Blood pressure continues to fluctuate, monitor closely, restart antihypertensives when able (11) Hyperlipidemia: Code(s): E78.5 - Hyperlipidemia, unspecified Status: Acute (12) Gastric ulcer: Code(s): K25.9 - Gastric ulcer, unspecified as acute or chronic, without hemorrhage or perforation Status: Acute Assessment and Plan: History of GI bleed likely secondary to Plavix in January 2022, this has been discontinued in favor of aspirin for antiplatelet monotherapy (13) Peripheral vascular disease: Code(s): I73.9 - Peripheral vascular disease, unspecified Status: Acute Assessment and Plan: History of abdominal aortic stent placement, currently on monotherapy with aspirin after having GI bleed with Plavix Plan History of Jackson's palsy DVT prophylaxis heparin subQ Code status full code Subjective Date/time seen: 05/10/22 10:12 Interval history: Patient up with a walker with therapy. States she feels a little stronger each day. Hemoglobin down to 7.8 today. No overnight events noted. No chest pain or shortness of breath. No nausea, vomiting or diarrhea. No fevers or chill
[2022-05-10] MEDS: calcitrioL 0.25 MCG CAPSULE PO (10:14)
[2022-05-10] MEDS: POTASSIUM CHLORIDE 10 MEQ TABLET.ER PO (10:14)
[2022-05-10] MEDS: ATORVASTATIN 20 MG TABLET PO (10:14)
[2022-05-10] MEDS: ASPIRIN 325 MG ENTERIC TABLET PO (10:14)
[2022-05-10] MEDS: SENNA/DOCUSATE SODIUM TABLET 2 TAB PO (10:14)
[2022-05-10] MEDS: DULoxetine HCL 30 MG CAPSULE.DR PO (10:14)
[2022-05-10] MEDS: allopurinoL 100 MG TABLET PO ×2 (10:14→17:21)
[2022-05-10 10:15] VITALS: PULSE 80
[2022-05-10] MEDS: LIDOCAINE 5% PATCH 1 PATCH TRANSDERM (10:15)
[2022-05-10] MEDS: METOPROLOL SUCCINATE EXT REL 25 MG TABCR PO (10:15)
[2022-05-10] MEDS: polyethylene glycoL 3350 17 GM POWD.PACK PO (10:15)
[2022-05-10] MEDS: PANTOPRAZOLE 40 MG TABLET PO ×2 (10:15→17:21)
[2022-05-10] MEDS: LOSARTAN POTASSIUM 50 MG TABLET PO (10:15)
[2022-05-10] MEDS: FERROUS SULFATE 324 MG TABLET PO (10:15)
[2022-05-10] MEDS: FAMOTIDINE 20 MG TABLET PO ×2 (10:15→21:33)
[2022-05-10] MEDS: HEPARIN SODIUM LOCK FLUSH 500 UNITS/5 ML SYRINGE IV PUSH (10:16)
[2022-05-10] MEDS: HEPARIN SODIUM 5,000 UNITS/ML VIAL 5000 UNITS SUB-Q ×2 (10:30→21:33)
[2022-05-10 14:00] VITALS: BP 114/53; PULSE 83; RESP 18; TEMP 36.7; O2SAT 100
--- NOTE | 2022-05-10 14:15 | PCNFU ---
Nutrition Follow-Up Complete: Pt is awaiting placement at intermediate facility. Medically ready for discharge. Underweight as related to cancer as evidenced by BMI: 16.6 Goal: Adequate Intake of at least 75% of meals/supplements - Goal is being met. Pt declines supplements which were ordered previously. Pt current nutrition is Regular diet. Nutrition recommendation: Continue current regular diet. Last recorded weight is 49.4 kg. Bowel Motility: 05/09/22: +3 BM Labs Reviewed: 05/08/22 (last labs): Alb 2.4, Na 131 Meds Noted: Allopurinol, Lipitor, metformin, Zofran Skin: WNL Additional Notes: Pt appetite has improved and says she does not need supplements now. Hoping to discharge soon. RD will monitor every 3 days.
[2022-05-10] MEDS: metFORMIN HCL XR 500 MG TAB.SR.24H PO (17:21)
[2022-05-10 20:37] VITALS: BP 100/50; PULSE 80; RESP 14; TEMP 37; O2SAT 99
[2022-05-11] VITALS (7 sets, daily range): BP systolic 95–143; BP diastolic 54–61; PULSE 63–92; RESP 14–20; TEMP 36.7–37; O2SAT 99
[2022-05-11] MEDS: ACETAMINOPHEN 500 MG TABLET 1000 MG PO ×3 (06:16→21:24)
[2022-05-11] MEDS: CENTRAL LINE FLUSH 10 ML IV PUSH ×2 (06:16→21:25)
[2022-05-11 06:22] LABS: Basophils Percent Auto 0.3 % (0.2-1.2); Eosinophils Absolute Auto 0.3 K/mm3 (0-0.3); Eosinophils Percent Auto 4.8 % (0-4.4); Hematocrit 25.6 % (37.0-47.0); Hemoglobin 8.1 g/dL (12.0-15.0); Immature Granulocyte Absolute 0.04 K/mm3 (0.00-0.031); Immature Granulocyte Percent A 0.6 % (0-0.5); Lymphocytes Percent Auto 22.7 % (18.3-44.2); Mean Corpuscular HGB Conc 31.6 g/dl (32-36); Mean Corpuscular Hemoglobin 33.6 pg (26-34); Mean Corpuscular Volume 106.2 fl (80-100); Mean Platelet Volume 10.1 fl (7.4-10.4); Monocytes Absolute Auto 0.6 K/mm3 (0.1-0.6); Monocytes Percent Auto 9.5 % (2.6-8.5); Neutrophils Absolute Auto 4.1 K/mm3 (1.3-6.7); Neutrophils Percent Auto 62.1 % (45.5-73.1); Platelet Count Result 173 k/mm3 (150-375); Red Blood Count 2.41 M/mm3 (4.2-5.4); Red Cell Distribution Width 21.3 % (11.5-14.5); White Blood Count 6.6 K/mm3 (4.5-10.0)
--- NOTE | 2022-05-11 07:40 | PM.IMPN ---
Progress Note: A&P Assessment and Plan (1) Closed fracture of right hip: Code(s): S72.001A - Fracture of unspecified part of neck of right femur, initial encounter for closed fracture Status: Deleted Assessment and Plan: Postop day 3 ORIF right hip, DVT prophylaxis with SCDs + full dose aspirin for 30 days, then decrease back to 81 mg daily Monitor hemoglobin closely, goal would be greater than 9-10 due to history of heart disease 05/09: Hemoglobin 9.1 this morning, stable for discharge to rehab facility when insurance authorization completed 05/10: Hemoglobin dropped down to 7.8 today, recheck later this afternoon, may need another transfusion 05/11: Hgb 8.1, cont to monitor, goal greater than 9 d/t h/o heart disease, consider transfusion if any signs of cardiac instability, place on telemetry (2) CHF (congestive heart failure): Code(s): I50.9 - Heart failure, unspecified Status: Acute Assessment and Plan: EF 35-40%, combined diastolic and systolic heart failure, appears compensated, continue metoprolol 05/10: Heart failure appears stable, euvolemic (3) Cardiomyopathy: Code(s): I42.9 - Cardiomyopathy, unspecified Status: Acute Assessment and Plan: See above (4) Tobacco dependence: Code(s): F17.200 - Nicotine dependence, unspecified, uncomplicated Status: Acute (5) Chronic obstructive pulmonary disease: Code(s): J44.9 - Chronic obstructive pulmonary disease, unspecified Status: Acute Assessment and Plan: Stable (6) Type 2 diabetes mellitus: Code(s): E11.9 - Type 2 diabetes mellitus without complications Status: Acute Assessment and Plan: Hold metformin, continue Accu-Cheks and sliding scale insulin 05/10: Blood glucose well controlled here, consistently under 180 (7) Coronary artery disease: Code(s): I25.10 - Atherosclerotic heart disease of [place] coronary artery without angina pectoris Status: Acute Assessment and Plan: Distant PCI in 1995 (8) Colon cancer metastasized to liver: Code(s): C18.9 - Malignant neoplasm of colon, unspecified; C78.7 - Secondary malignant neoplasm of liver and intrahepatic bile duct Status: Acute Assessment and Plan: Currently receiving chemotherapy, last dose last Friday, due for next dose soon, will need patient to recover quickly so she can get back to chemotherapy (9) Chronic anemia: Code(s): D64.9 - Anemia, unspecified Status: Acute Assessment and Plan: Likely secondary to multiple comorbidities including metastatic colon cancer, coronary artery disease and GI bleed 05/10: Hemoglobin continues to drop, monitor closely, check hemoglobin q.12h, may need another transfusion 05/11: see above (10) Hypertension: Code(s): I10 - Essential (primary) hypertension Status: Acute Assessment and Plan: Currently hypotensive, hold antihypertensives for now 05/10: Blood pressure continues to fluctuate, monitor closely, restart antihypertensives when able 05/11: BP increasing, will restart lasix 20 mg po today (11) Hyperlipidemia: Code(s): E78.5 - Hyperlipidemia, unspecified Status: Acute (12) Gastric ulcer: Code(s): K25.9 - Gastric ulcer, unspecified as acute or chronic, without hemorrhage or perforation Status: Acute Assessment and Plan: History of GI bleed likely secondary to Plavix in January 2022, this has been discontinued in favor of aspirin for antiplatelet monotherapy (13) Peripheral vascular disease: Code(s): I73.9 - Peripheral vascular disease, unspecified Status: Acute Assessment and Plan: History of abdominal aortic stent placement, currently on monotherapy with aspirin after having GI bleed with Plavix Plan History of Jackson's palsy DVT prophylaxis heparin subQ Code status full code Subjective Date/time seen: 05/11/22 07:40 Interval history: Pat
[2022-05-11] MEDS: allopurinoL 100 MG TABLET PO ×2 (08:41→17:24)
[2022-05-11] MEDS: ATORVASTATIN 20 MG TABLET PO (08:42)
[2022-05-11] MEDS: calcitrioL 0.25 MCG CAPSULE PO (08:42)
[2022-05-11] MEDS: ASPIRIN 325 MG ENTERIC TABLET PO (08:42)
[2022-05-11] MEDS: SENNA/DOCUSATE SODIUM TABLET 2 TAB PO ×2 (08:43→17:25)
[2022-05-11] MEDS: DULoxetine HCL 30 MG CAPSULE.DR PO (08:44)
[2022-05-11] MEDS: FERROUS SULFATE 324 MG TABLET PO (08:44)
[2022-05-11] MEDS: FAMOTIDINE 20 MG TABLET PO ×2 (08:44→21:24)
[2022-05-11] MEDS: FUROSEMIDE 20 MG TABLET PO (08:45)
[2022-05-11] MEDS: LOSARTAN POTASSIUM 50 MG TABLET PO (08:45)
[2022-05-11] MEDS: METOPROLOL SUCCINATE EXT REL 25 MG TABCR PO (08:46)
[2022-05-11] MEDS: POTASSIUM CHLORIDE 10 MEQ TABLET.ER PO (08:47)
[2022-05-11] MEDS: PANTOPRAZOLE 40 MG TABLET PO ×2 (08:47→17:25)
[2022-05-11] MEDS: HEPARIN SODIUM 5,000 UNITS/ML VIAL 5000 UNITS SUB-Q ×2 (08:52→21:25)
--- NOTE | 2022-05-11 08:56 | PCPTNOTE ---
Attempted therapy session at 08:48am, Pt was eating breakfast. Will attempt again.
[2022-05-11] MEDS: metFORMIN HCL XR 500 MG TAB.SR.24H PO (17:25)
[2022-05-11] MEDS: traMADol HCL (*CRX) 25 MG TABLET PO (21:25)
[2022-05-12] VITALS (10 sets, daily range): BP systolic 98–110; BP diastolic 40–67; PULSE 74–110; RESP 16–20; TEMP 36.4–36.7; O2SAT 98–99
[2022-05-12] MEDS: ACETAMINOPHEN 500 MG TABLET 1000 MG PO ×3 (05:15→20:56)
[2022-05-12] MEDS: CENTRAL LINE FLUSH 10 ML IV PUSH ×2 (05:17→22:11)
[2022-05-12 05:24] LABS: Basophils Percent Auto 0.3 % (0.2-1.2); Eosinophils Absolute Auto 0.3 K/mm3 (0-0.3); Eosinophils Percent Auto 4.1 % (0-4.4); Hematocrit 25.7 % (37.0-47.0); Hemoglobin 8.2 g/dL (12.0-15.0); Immature Granulocyte Absolute 0.04 K/mm3 (0.00-0.031); Immature Granulocyte Percent A 0.5 % (0-0.5); Lymphocytes Absolute Auto 1.58 K/mm3 (0.9-3.2); Lymphocytes Percent Auto 21.4 % (18.3-44.2); Mean Corpuscular HGB Conc 31.9 g/dl (32-36); Mean Corpuscular Hemoglobin 32.9 pg (26-34); Mean Corpuscular Volume 103.2 fl (80-100); Mean Platelet Volume 9.8 fl (7.4-10.4); Monocytes Absolute Auto 0.6 K/mm3 (0.1-0.6); Monocytes Percent Auto 7.5 % (2.6-8.5); Neutrophils Absolute Auto 4.9 K/mm3 (1.3-6.7); Neutrophils Percent Auto 66.2 % (45.5-73.1); Platelet Count Result 202 k/mm3 (150-375); Red Blood Count 2.49 M/mm3 (4.2-5.4); Red Cell Distribution Width 21.1 % (11.5-14.5); White Blood Count 7.4 K/mm3 (4.5-10.0)
[2022-05-12] MEDS: ATORVASTATIN 20 MG TABLET PO (08:52)
[2022-05-12] MEDS: ASPIRIN 325 MG ENTERIC TABLET PO (08:52)
[2022-05-12] MEDS: allopurinoL 100 MG TABLET PO ×2 (08:52→16:34)
[2022-05-12] MEDS: SENNA/DOCUSATE SODIUM TABLET 2 TAB PO ×2 (08:53→16:34)
[2022-05-12] MEDS: ERGOCALCIFEROL 50,000 UNIT CAPSULE 50000 UNITS PO (08:53)
[2022-05-12] MEDS: DULoxetine HCL 30 MG CAPSULE.DR PO (08:53)
[2022-05-12] MEDS: calcitrioL 0.25 MCG CAPSULE PO (08:53)
[2022-05-12] MEDS: FERROUS SULFATE 324 MG TABLET PO (08:54)
[2022-05-12] MEDS: FAMOTIDINE 20 MG TABLET PO ×2 (08:54→20:56)
[2022-05-12] MEDS: FUROSEMIDE 20 MG TABLET PO (08:54)
[2022-05-12] MEDS: HEPARIN SODIUM 5,000 UNITS/ML VIAL 5000 UNITS SUB-Q ×2 (08:55→20:55)
[2022-05-12] MEDS: LOSARTAN POTASSIUM 50 MG TABLET PO (08:56)
[2022-05-12] MEDS: PANTOPRAZOLE 40 MG TABLET PO ×2 (08:56→16:34)
[2022-05-12] MEDS: POTASSIUM CHLORIDE 10 MEQ TABLET.ER PO (08:57)
[2022-05-12] MEDS: METOPROLOL SUCCINATE EXT REL 25 MG TABCR PO (09:24)
--- NOTE | 2022-05-12 10:25 | P.PNIM_ITS ---
Progress Note: A&P Assessment and Plan (1) Closed fracture of right hip: Code(s): S72.001A - Fracture of unspecified part of neck of right femur, initial encounter for closed fracture Status: Deleted Assessment and Plan: Postop day 4 ORIF right hip, DVT prophylaxis with SCDs + full dose aspirin for 30 days, then decrease back to 81 mg daily Monitor hemoglobin closely, goal would be greater than 9-10 due to history of heart disease 05/09: Hemoglobin 9.1 this morning, stable for discharge to rehab facility when insurance authorization completed 05/10: Hemoglobin dropped down to 7.8 today, recheck later this afternoon, may need another transfusion 05/11: Hgb 8.1, cont to monitor, goal greater than 9 d/t h/o heart disease, consider transfusion if any signs of cardiac instability, place on telemetry 05/12: Hemoglobin stable at 8.2 today, continue to monitor (2) CHF (congestive heart failure): Code(s): I50.9 - Heart failure, unspecified Status: Acute Assessment and Plan: EF 35-40%, combined diastolic and systolic heart failure, appears compensated, continue metoprolol, hold Lasix due to hypotension 05/10: Heart failure appears stable, euvolemic 05/11: Blood pressure increasing, restart Lasix 20 mg p.o. daily 05/12: Heart failure appears stable despite anemia, consider transfusion to keep hemoglobin closer to 9-10, continue metoprolol and Lasix (3) Cardiomyopathy: Code(s): I42.9 - Cardiomyopathy, unspecified Status: Acute Assessment and Plan: See above (4) Tobacco dependence: Code(s): F17.200 - Nicotine dependence, unspecified, uncomplicated Status: Acute Assessment and Plan: Smoking cessation encouraged (5) Chronic obstructive pulmonary disease: Code(s): J44.9 - Chronic obstructive pulmonary disease, unspecified Status: Acute Assessment and Plan: Stable (6) Type 2 diabetes mellitus: Code(s): E11.9 - Type 2 diabetes mellitus without complications Status: Acute Assessment and Plan: Hold metformin, continue Accu-Cheks and sliding scale insulin 05/10: Blood glucose well controlled here, consistently under 180 (7) Coronary artery disease: Code(s): I25.10 - Atherosclerotic heart disease of [place] coronary artery without angina pectoris Status: Acute Assessment and Plan: Distant PCI in 1995 (8) Colon cancer metastasized to liver: Code(s): C18.9 - Malignant neoplasm of colon, unspecified; C78.7 - Secondary malignant neoplasm of liver and intrahepatic bile duct Status: Acute Assessment and Plan: Currently receiving chemotherapy, last dose last Friday, due for next dose soon, will need patient to recover quickly so she can get back to chemotherapy (9) Chronic anemia: Code(s): D64.9 - Anemia, unspecified Status: Acute Assessment and Plan: Likely secondary to multiple comorbidities including metastatic colon cancer, coronary artery disease and GI bleed 05/10: Hemoglobin continues to drop, monitor closely, check hemoglobin q.12h, may need another transfusion 05/11: see above (10) Hyperlipidemia: Code(s): E78.5 - Hyperlipidemia, unspecified Status: Acute (11) Gastric ulcer: Code(s): K25.9 - Gastric ulcer, unspecified as acute or chronic, without hemorrhage or perforation Status: Acute Assessment and Plan: History of GI bleed likely secondary to Plavix in January 2022, this has been discontinued in favor of aspirin for antiplatelet monotherapy (12) Peripheral vascular disease:
--- NOTE | 2022-05-12 11:53 | PCPTNOTE ---
Attempted second treatment, Pt with OT. Will attempt again.
[2022-05-12] MEDS: metFORMIN HCL XR 500 MG TAB.SR.24H PO (16:34)
[2022-05-12] MEDS: traMADol HCL (*CRX) 25 MG TABLET PO (20:55)
[2022-05-13] VITALS: PULSE 68
[2022-05-13 04:00] VITALS: PULSE 81
[2022-05-13] MEDS: ACETAMINOPHEN 500 MG TABLET 1000 MG PO (05:59)
[2022-05-13] MEDS: CENTRAL LINE FLUSH 10 ML IV PUSH (06:00)
[2022-05-13 06:01] LABS: Basophils Percent Auto 0.5 % (0.2-1.2); Eosinophils Absolute Auto 0.2 K/mm3 (0-0.3); Eosinophils Percent Auto 4.1 % (0-4.4); Hemoglobin 8.2 g/dL (12.0-15.0); Immature Granulocyte Absolute 0.05 K/mm3 (0.00-0.031); Immature Granulocyte Percent A 0.9 % (0-0.5); Lymphocytes Absolute Auto 1.83 K/mm3 (0.9-3.2); Lymphocytes Percent Auto 31.6 % (18.3-44.2); Mean Corpuscular HGB Conc 31.5 g/dl (32-36); Mean Corpuscular Hemoglobin 33.6 pg (26-34); Mean Corpuscular Volume 106.6 fl (80-100); Mean Platelet Volume 9.2 fl (7.4-10.4); Monocytes Absolute Auto 0.5 K/mm3 (0.1-0.6); Monocytes Percent Auto 8.6 % (2.6-8.5); Neutrophils Absolute Auto 3.1 K/mm3 (1.3-6.7); Neutrophils Percent Auto 54.3 % (45.5-73.1); Platelet Count Result 184 k/mm3 (150-375); Red Blood Count 2.44 M/mm3 (4.2-5.4); Red Cell Distribution Width 20.7 % (11.5-14.5); White Blood Count 5.8 K/mm3 (4.5-10.0)
[2022-05-13 06:44] LABS: Anisocytosis 1+ (NORMAL); Macrocytosis 1+ (NORMAL); Platelet Estimate Adequate (Adequate); Spherocytes 1+ (NORMAL)
[2022-05-13 06:59] VITALS: BP 111/45; PULSE 76; RESP 21; TEMP 36.2; O2SAT 100
--- NOTE | 2022-05-13 07:28 | PM.IMPN ---
Progress Note: A&P Assessment and Plan (1) Closed fracture of right hip: Code(s): S72.001A - Fracture of unspecified part of neck of right femur, initial encounter for closed fracture Status: Deleted Assessment and Plan: Postop day 4 ORIF right hip, DVT prophylaxis with SCDs + full dose aspirin for 30 days, then decrease back to 81 mg daily Monitor hemoglobin closely, goal would be greater than 9-10 due to history of heart disease 05/09: Hemoglobin 9.1 this morning, stable for discharge to rehab facility when insurance authorization completed 05/10: Hemoglobin dropped down to 7.8 today, recheck later this afternoon, may need another transfusion 05/11: Hgb 8.1, cont to monitor, goal greater than 9 d/t h/o heart disease, consider transfusion if any signs of cardiac instability, place on telemetry 05/12: Hemoglobin stable at 8.2 today, continue to monitor (2) CHF (congestive heart failure): Code(s): I50.9 - Heart failure, unspecified Status: Acute Assessment and Plan: EF 35-40%, combined diastolic and systolic heart failure, appears compensated, continue metoprolol, hold Lasix due to hypotension 05/10: Heart failure appears stable, euvolemic 05/11: Blood pressure increasing, restart Lasix 20 mg p.o. daily 05/12: Heart failure appears stable despite anemia, consider transfusion to keep hemoglobin closer to 9-10, continue metoprolol and Lasix (3) Cardiomyopathy: Code(s): I42.9 - Cardiomyopathy, unspecified Status: Acute Assessment and Plan: See above (4) Tobacco dependence: Code(s): F17.200 - Nicotine dependence, unspecified, uncomplicated Status: Acute Assessment and Plan: Smoking cessation encouraged (5) Chronic obstructive pulmonary disease: Code(s): J44.9 - Chronic obstructive pulmonary disease, unspecified Status: Acute Assessment and Plan: Stable (6) Type 2 diabetes mellitus: Code(s): E11.9 - Type 2 diabetes mellitus without complications Status: Acute Assessment and Plan: Hold metformin, continue Accu-Cheks and sliding scale insulin 05/10: Blood glucose well controlled here, consistently under 180 (7) Coronary artery disease: Code(s): I25.10 - Atherosclerotic heart disease of [place] coronary artery without angina pectoris Status: Acute Assessment and Plan: Distant PCI in 1995 (8) Colon cancer metastasized to liver: Code(s): C18.9 - Malignant neoplasm of colon, unspecified; C78.7 - Secondary malignant neoplasm of liver and intrahepatic bile duct Status: Acute Assessment and Plan: Currently receiving chemotherapy, last dose last Friday, due for next dose soon, will need patient to recover quickly so she can get back to chemotherapy (9) Chronic anemia: Code(s): D64.9 - Anemia, unspecified Status: Acute Assessment and Plan: Likely secondary to multiple comorbidities including metastatic colon cancer, coronary artery disease and GI bleed 05/10: Hemoglobin continues to drop, monitor closely, check hemoglobin q.12h, may need another transfusion 05/11: see above (10) Hyperlipidemia: Code(s): E78.5 - Hyperlipidemia, unspecified Status: Acute (11) Gastric ulcer: Code(s): K25.9 - Gastric ulcer, unspecified as acute or chronic, without hemorrhage or perforation Status: Acute Assessment and Plan: History of GI bleed likely secondary to Plavix in January 2022, this has been discontinued in favor of aspirin for antiplatelet monotherapy (12) Peripheral vascular disease: Code(s): I73.9 - Peripheral vascular disease, unspecified Status: Acute Assessment and Plan: History of abdominal aortic stent placement, currently on monotherapy with aspirin after having GI bleed with Plavix Plan Rehab stay appeal was approved, patient has now been authorized to be d/c for rehab care: Auth #[id number]. History of Jackson's palsy DVT p
--- NOTE | 2022-05-13 07:41 | PM.DS ---
DS: Admitting Diagnosis Discharge Date 05/13/2022 Admitting Diagnosis Hip fracture DS: Discharge Diagnosis Discharge Diagnosis (1) Closed fracture of right hip: Code(s): S72.001A - Fracture of unspecified part of neck of right femur, initial encounter for closed fracture Status: Deleted Assessment and Plan: Postop day 4 ORIF right hip, DVT prophylaxis with SCDs + full dose aspirin for 30 days, then decrease back to 81 mg daily Monitor hemoglobin closely, goal would be greater than 9-10 due to history of heart disease 05/09: Hemoglobin 9.1 this morning, stable for discharge to rehab facility when insurance authorization completed 05/10: Hemoglobin dropped down to 7.8 today, recheck later this afternoon, may need another transfusion 05/11: Hgb 8.1, cont to monitor, goal greater than 9 d/t h/o heart disease, consider transfusion if any signs of cardiac instability, place on telemetry 05/12: Hemoglobin stable at 8.2 today, continue to monitor 05/13: Hemoglobin stable at 8.2 again (2) CHF (congestive heart failure): Code(s): I50.9 - Heart failure, unspecified Status: Acute Assessment and Plan: EF 35-40%, combined diastolic and systolic heart failure, appears compensated, continue metoprolol, hold Lasix due to hypotension 05/10: Heart failure appears stable, euvolemic 05/11: Blood pressure increasing, restart Lasix 20 mg p.o. daily 05/12: Heart failure appears stable despite anemia, consider transfusion to keep hemoglobin closer to 9-10, continue metoprolol and Lasix 05/13: Vital signs stable on current medications, no change (3) Cardiomyopathy: Code(s): I42.9 - Cardiomyopathy, unspecified Status: Acute Assessment and Plan: See above (4) Tobacco dependence: Code(s): F17.200 - Nicotine dependence, unspecified, uncomplicated Status: Acute Assessment and Plan: Smoking cessation encouraged (5) Chronic obstructive pulmonary disease: Code(s): J44.9 - Chronic obstructive pulmonary disease, unspecified Status: Acute Assessment and Plan: Stable (6) Type 2 diabetes mellitus: Code(s): E11.9 - Type 2 diabetes mellitus without complications Status: Acute Assessment and Plan: Hold metformin, continue Accu-Cheks and sliding scale insulin 05/10: Blood glucose well controlled here, consistently under 180 (7) Coronary artery disease: Code(s): I25.10 - Atherosclerotic heart disease of [place] coronary artery without angina pectoris Status: Acute Assessment and Plan: Distant PCI in 1995 (8) Colon cancer metastasized to liver: Code(s): C18.9 - Malignant neoplasm of colon, unspecified; C78.7 - Secondary malignant neoplasm of liver and intrahepatic bile duct Status: Acute Assessment and Plan: Currently receiving chemotherapy, last dose last Friday, due for next dose soon, will need patient to recover quickly so she can get back to chemotherapy (9) Chronic anemia: Code(s): D64.9 - Anemia, unspecified Status: Acute Assessment and Plan: Likely secondary to multiple comorbidities including metastatic colon cancer, coronary artery disease and GI bleed 05/10: Hemoglobin continues to drop, monitor closely, check hemoglobin q.12h, may need another transfusion 05/11: see above (10) Hyperlipidemia: Code(s): E78.5 - Hyperlipidemia, unspecified Status: Acute (11) Gastric ulcer: Code(s): K25.9 - Gastric ulcer, unspecified as acute or chronic, without hemorrhage or perforation Status: Acute Assessment and Plan: History of GI bleed likely secondary to Plavix in January 2022, this has been discontinued in favor of aspirin for antiplatelet monotherapy (12) Peripheral vascular disease: Code(s): I73.9 - Peripheral vascular disease, unspecified Status: Acute Assessment and Plan: History of abdominal aortic stent placement, currently on monotherapy with a
[2022-05-13 08:00] VITALS: PULSE 70
[2022-05-13 08:44] VITALS: BP 128/48
[2022-05-13] MEDS: LOSARTAN POTASSIUM 50 MG TABLET PO (08:46)
[2022-05-13] MEDS: allopurinoL 100 MG TABLET PO (08:46)
[2022-05-13] MEDS: DULoxetine HCL 30 MG CAPSULE.DR PO (08:46)
[2022-05-13] MEDS: POTASSIUM CHLORIDE 10 MEQ TABLET.ER PO (08:46)
[2022-05-13] MEDS: PANTOPRAZOLE 40 MG TABLET PO (08:46)
[2022-05-13 08:47] VITALS: PULSE 82
[2022-05-13] MEDS: FERROUS SULFATE 324 MG TABLET PO (08:47)
[2022-05-13] MEDS: ASPIRIN 325 MG ENTERIC TABLET PO (08:47)
[2022-05-13] MEDS: FAMOTIDINE 20 MG TABLET PO (08:47)
[2022-05-13] MEDS: HEPARIN SODIUM 5,000 UNITS/ML VIAL 5000 UNITS SUB-Q (08:47)
[2022-05-13] MEDS: METOPROLOL SUCCINATE EXT REL 25 MG TABCR PO (08:47)
[2022-05-13] MEDS: FUROSEMIDE 20 MG TABLET PO (08:47)
[2022-05-13] MEDS: LIDOCAINE 5% PATCH 1 PATCH TRANSDERM (08:48)
[2022-05-13] MEDS: calcitrioL 0.25 MCG CAPSULE PO (08:48)
[2022-05-13] MEDS: ATORVASTATIN 20 MG TABLET PO (08:48)
[2022-05-13] MEDS: HEPARIN SODIUM LOCK FLUSH 500 UNITS/5 ML SYRINGE IV PUSH (10:27)
--- NOTE | 2022-05-13 11:10 | PM.PNORT ---
Progress Note: A&P Assessment and Plan (1) Intertrochanteric fracture of right hip: Code(s): S72.141A - Displaced intertrochanteric fracture of right femur, initial encounter for closed fracture Status: Acute Plan 81-year-old female postop day 6 ORIF right IT hip fracture. Doing well. Will follow up in office in next week for staple removal. Daily dressing changes while at the rehab facility. No change in activity level. Scheduled tylenol for pain relief. Aspirin for dvt prophylaxis. Subjective Subjective Date/Time Seen: 05/13/22 11:10 Post Op day: 6 Principal diagnosis: s/p ORIF right IT hip fracture with trochanteric nail Interval history: 81-year-old female postop day 6 ORIF right IT fracture. Uneventful weekend. She has been taking tylenol for pain relief with occasional tramadol at night. She has been participating with therapy with only minor difficulty. Review of Systems Constitutional: Constitutional: Reports as per HPI Exam Const: General: comfortable and no acute distress Orientation/consciousness: patient oriented x3 Resp: Effort & Inspection: normal respiratory effort GI: Inspection: non-distended Extrem: Other: Exam of right lower extremity shows dry dressings over the upper thigh with minimal swelling and no bruising. Calves negative. Neurovascular status intact right lower extremity. Psych: Mental Status: mental status grossly normal Objective Data Vital Signs Vital Signs: Vital Signs - 24 hr 05/12/22 12:00 05/12/22 14:00 05/12/22 16:00 Temperature 97.6 F Pulse Rate 110 H 78 94 Respiratory Rate 16 Blood Pressure 98/67 L Pulse Oximetry 98 Oxygen Delivery 05/12/22 20:00 05/12/22 21:33 05/12/22 20:00 Temperature 98.1 F Pulse Rate 75 82 Respiratory Rate 20 Blood Pressure 109/40 L Pulse Oximetry 99 Oxygen Delivery Room Air 05/13/22 00:00 05/13/22 04:00 05/13/22 06:59 Temperature 97.2 F L Pulse Rate 68 81 76 Respiratory Rate 21 H Blood Pressure 111/45 L Pulse Oximetry 100 Oxygen Delivery 05/13/22 08:44 05/13/22 08:47 05/13/22 08:45 Temperature Pulse Rate 82 Respiratory Rate Blood Pressure 128/48 L Pulse Oximetry Oxygen Delivery Room Air 05/13/22 08:00 Temperature Pulse Rate 70 Respiratory Rate Blood Pressure Pulse Oximetry Oxygen Delivery Intake/Output Intake/Output: Intake & Output 05/10/22 05/11/22 05/12/22 05/13/22 23:59 23:59 23:59 23:59 Intake Total 655 1144 1761 800 Output Total 4 1600 Balance 655 1144 1757 -800 Meds/Results Medications: Active Medications Generic Name Dose Route Start Last Admin Trade Name Cas PRN Reason Stop Dose Admin Acetaminophen 1,000 mg 05/07/22 22:00 05/13/22 05:59 Acetaminophen 500 Mg Tablet PO 1,000 mg Q8H LASHON Administration Allopurinol 100 mg 05/07/22 09:00 05/13/22 08:46 Allopurinol 100 Mg Tablet PO 100 mg BID LASHON Administration Aspirin 325 mg 05/08/22 15:20 05/13/22 08:47 Aspirin 325 Mg Enteric Tablet PO 325 mg DAILY LASHON Administration Atorvastatin Calcium 20 mg 05/07/22 09:00 05/13/22 08:48 Atorvastatin 20 Mg Tablet PO 20 mg DAILY LASHON Administration Calcitriol 0.25 mcg 05/07/22 09:00 05/13/22 08:48 Calcitriol 0.25 Mcg Capsule PO 0.25 mcg DAILY LASHON Administration Cyanocobalamin 1,000 mcg 05/23/22 09:00 Cyanocobalamin Inj 1,000 Mcg/Ml Vial IM MONTHLY LASHON Duloxetine HCl 30 mg 05/07/22 09:00 05/13/22 08:46 Duloxetine Hcl 30 Mg Capsule.Dr PO 30 mg DAILY LASHON Administration Ergocalciferol 50,000 unit 05/12/22 09:00 05/12/22 08:53 Ergocalciferol 50,000 Unit Capsule PO 50,000 unit Da Silva@0900 [facility] Administration Famotidine 20 mg 05/07/22 21:00 05/13/22 08:47 Famotidine 20 Mg Tablet PO 20 mg Q12HR LASHON Administration Ferrous Sulfate 324 mg 05/07/22 09:00 05/13/22 08:47 Ferrous Sulfate 324 Mg Tablet PO 324 mg DAILY [facility] Adm
== END 2022-05-13 12:42 | DRG 481 ==
LOC: ANHED 05-06 00:31 → ANH2MED 05-06 00:52
PROVIDERS: Internal Medicine; Orthopaedic Surgery; Admitting Provider Internal Medicine; Emergency Provider Emergency Medicine; PCP Internal Medicine; Visit Provider Student in an Organized Health Care Education/Training Program
PROC: 0QS634Z Reposition Right Upper Femur with Internal Fixation Device, Percutaneous Approach (ICD-10-PCS; CPT 27245; principal; 2022-05-07 12:30)
DX: S72.141A Displaced intertrochanteric fracture of right femur, initial encounter for closed fracture (principal); C18.2 Malignant neoplasm of ascending colon; I42.9 Cardiomyopathy, unspecified; C78.7 Secondary malignant neoplasm of liver and intrahepatic bile duct; I50.40 Unspecified combined systolic (congestive) and diastolic (congestive) heart failure; I11.0 Hypertensive heart disease with heart failure; I25.10 Atherosclerotic heart disease of native coronary artery without angina pectoris; D64.9 Anemia, unspecified; J44.9 Chronic obstructive pulmonary disease, unspecified; K25.9 Gastric ulcer, unspecified as acute or chronic, without hemorrhage or perforation; E11.42 Type 2 diabetes mellitus with diabetic polyneuropathy; E78.5 Hyperlipidemia, unspecified; E11.51 Type 2 diabetes mellitus with diabetic peripheral angiopathy without gangrene; W19.XXXA Unspecified fall, initial encounter; F17.210 Nicotine dependence, cigarettes, uncomplicated; Z66 Do not resuscitate; Z95.820 Peripheral vascular angioplasty status with implants and grafts; Z79.82 Long term (current) use of aspirin
CPT/HCPCS: 36415; 36430; 51703; 70450; 71045; 72125; 73502; 80053; 81001; 82948; 83735; 85014; 85018; 85025; 85610; 85730; 86850; 86900; 86901; 86920; 93005; 96374; 97110; 97116; 97161; 97165; 97530; 97535; 99199; 99285; A9270; C1713; J0690; J1642; J1644; J2270; J2405; J2704; J3010; J3475; J7030; J7120; P9016

== ENCOUNTER 2022-12-02 16:22 | Inpatient (IN) | payer MEDICARE, SELFPAY ==
[2022-12-02] VITALS (21 sets, daily range): BP systolic 90–138; BP diastolic 45–64; PULSE 67–121; RESP 13–22; TEMP 36.4–36.6; O2SAT 99–100; BMI 15.1
--- NOTE | ~2022-12-02 | CT_ITS ---
EXAMINATION: CTA chest PE protocol DATE: 12/02/2022 21:11 INDICATION: SOB, hx of cancer, on chemo TECHNIQUE: Computed tomography angiography (CTA) of the chest was performed with 100 mL Omnipaque-350 intravenous contrast timed to evaluate the pulmonary arteries. Coronal maximum intensity projection 3D-reconstructions were created by the technologist. The dose-length product (DLP) was 141.24 mGy-cm. Automated exposure control and iterative reconstruction technique were employed. COMPARISON: 01/13/2022. FINDINGS: Lung parenchyma and airways: Scattered tree-in-bud and groundglass opacities most pronounced in the r ight lower lung, with peripheral and basilar fibrosis. Pleura: Unremarkable. Thoracic inlet, axillae and chest wall: Right IJ central line terminating at the cavoatrial junction. Thoracic aorta: Normal. Mediastinum: Normal. Heart and pericardium: Normal. Coronary artery calcifications: . Upper abdomen: No significant finding. Bones: No acute osseous finding. Pulmonary arteries: Study quality: Adequate. No pulmonary emboli detected. IMPRESSION: No CT evidence of acute pulmonary embolus. Pulmonary opacities may represent atypical infection and/o r respiratory bronchiolitis, overlying changes of UIP. Reviewed, dictated and finalized at location K. IMPRESSION: No CT evidence of acute pulmonary embolus. Pulmonary opacities may represent at ypical infection and/or respiratory bronchiolitis, overlying changes of UIP.
--- NOTE | ~2022-12-02 | XR_ITS ---
EXAMINATION: XR chest 2V DATE: 12/02/2022 16:54 INDICATION: Shortness of breath and cough. Wheezing. TECHNIQUE: Frontal and lateral views of the chest were obtained. COMPARISON: Chest single view 05/05/2022, chest CT 01/13/2022 FINDINGS: The lungs are hyperexpanded, consistent with emphysema. There is mild scarring at the lung apices. No pleural effusion or pneumothorax. The heart size is normal. There is a right internal jugu lar port with tip at superior cavoatrial junction. IMPRESSION: 1. Stable mild scarring at the lung apices. 2. Emphysema. Reviewed, dictated and finalized at location A.
--- NOTE | 2022-12-02 16:29 | ECG_ITS ---
Measurements Intervals [place] Rate: 94 P: 84 [place]: 118 QRS: 72 QRSD: 77 T: 49 QT: 337 QTc: 421 Interpretive Statements SINUS RHYTHM WITH SHORT [place] INTERVAL VENTRICULAR PREMATURE COMPLEX POSSIBLE RIGHT ATRIAL ENLARGEMENT EARLY PRECORDIAL R/S TRANSITION ST-T WAVE ABNORMALITY IN ANTEROLAT/INF LEADS- CONSIDER ISCHEMIA BASELINE ARTIFACT- I, II, III, AVR, AVL, AVF, V1-V6 ABNORMAL ECG COMPARED TO ECG 05/06/2022 00:21:12 SINUS RHYTHM NOW PRESENT ST-T WAVE ABNORMALITY NOW PRESENT Electronically Signed On 12-03-2022 8:34:56 CDT by Sincere Garcia D.O.
[2022-12-02 17:17] LABS: Basophils Percent Auto 0.3 % (0.2-1.2); Hematocrit 31.3 % (37.0-47.0); Hemoglobin 10.2 g/dL (12.0-15.0); Immature Granulocyte Percent A 1.7 % (0-0.5); Lymphocytes Absolute Auto 0.98 K/mm3 (0.9-3.2); Lymphocytes Percent Auto 8.5 % (18.3-44.2); Mean Corpuscular HGB Conc 32.6 g/dl (32-36); Mean Corpuscular Hemoglobin 31.6 pg (26-34); Mean Corpuscular Volume 96.9 fl (80-100); Mean Platelet Volume 10.7 fl (7.4-10.4); Monocytes Absolute Auto 0.2 K/mm3 (0.1-0.6); Monocytes Percent Auto 1.6 % (2.6-8.5); Neutrophils Absolute Auto 10.2 K/mm3 (1.3-6.7); Neutrophils Percent Auto 87.9 % (45.5-73.1); Platelet Count Result 254 k/mm3 (150-375); Red Blood Count 3.23 M/mm3 (4.2-5.4); Red Cell Distribution Width 17.8 % (11.5-14.5); White Blood Count 11.6 K/mm3 (4.5-10.0)
[2022-12-02 17:32] LABS: Albumin Level 3.8 g/dL (3.5-5.1); Alkaline Phosphatase 93 U/L (38-126); Anion Gap 12 mmol/L (8-16); Aspartate Amino Transferase 19 U/L (14-36); Bilirubin,Total 0.9 mg/dL (0.2-1.3); Blood Urea Nitrogen 23 mg/dL (7-17); Calcium 8.9 mg/dL (8.4-10.2); Carbon Dioxide 22 mmol/L (22-30); Chloride 91 mmol/L (98-107); Estimated CRCL calculation 40 ml/min; Estimated Glomerular Filt Rate > 60; Glucose 460 mg/dL (65-110); Potassium 5.1 mmol/L (3.4-5.0); Sodium 125 mmol/L (137-145)
[2022-12-02 17:45] LABS: Alanine Aminotransferase 32 U/L (6-35)
[2022-12-02 17:52] LABS: Influenza A QL RT-PCR Negative (Negative); Influenza B QL RT-PCR Negative (Negative); SARS-CoV-2 RNA PCR Negative
--- NOTE | 2022-12-02 19:00 | PC.NURSE ---
Assumed care of pt. at this time. Report from JACOBY Mcgregor
--- NOTE | 2022-12-02 19:05 | ED.SOB ---
HPI - SOB/Dyspnea General Chief Complaint: Shortness of Breath/Dyspnea Stated Complaint: shortness of breath Time Seen by Provider: 12/02/22 17:36 History of Present Illness HPI Narrative: 82-year-old female with a history of colon cancer on chemo, heart failure, diabetes, hypertension, hyperlipidemia presenting with shortness of breath. Patient's daughters are at bedside and they state that the whole family had a viral URI sometime last week. States that unfortunately, the patient has been increasingly short of breath with a cough for the last several days. States that it seems she struggles to clear her throat. She saw her oncologist down at [place] about a week ago and was told that her sodium was low so they gave her some fluids. Patient's family states that she has not really been eating or drinking much. Patient does complain of mouth pain. She denies headache, vision changes, focal numbness or weakness, chest pain, abdominal pain, vomiting, diarrhea, dysuria, leg swelling. Related Data Home Medications Medication Instructions Recorded Confirmed atorvastatin 20 mg tablet 20 mg PO DAILY 06/20/20 07/09/22 calcitriol 0.25 mcg capsule 0.25 mcg PO DAILY 06/20/20 07/09/22 cyanocobalamin (vitamin B-12) 1,000 mcg IM MONTHLY 06/20/20 07/09/22 1,000 mcg/mL injection kit ergocalciferol (vitamin D2) 1,250 1,250 mcg PO WEEKLY 06/20/20 07/09/22 mcg (50,000 unit) capsule losartan 50 mg tablet 50 mg PO DAILY 06/20/20 07/09/22 allopurinol 100 mg tablet 100 mg PO BID 09/19/21 07/09/22 aspirin 81 mg tablet,delayed 81 mg PO DAILY 03/28/22 07/09/22 release metoprolol succinate 25 mg 25 mg PO DAILY 03/28/22 07/09/22 tablet,extended release 24 hr duloxetine 30 mg capsule,delayed 60 mg PO DAILY 05/06/22 07/09/22 release metformin 500 mg tablet,extended 500 mg PO DAILY 05/06/22 07/09/22 release 24 hr pantoprazole 40 mg tablet,delayed 40 mg PO BID 05/06/22 07/09/22 release Allergies Allergy/AdvReac Type Severity Reaction Status Date / Time Penicillins Allergy Unknown Rash Verified 07/09/22 10:09 Review of Systems Review of Systems: All systems reviewed & are unremarkable except as noted in HPI and below PMFSH Past Medical History Medical History Acute on chronic blood loss anemia Chronic obstructive pulmonary disease Colon cancer Colon cancer metastasized to liver Coronary artery disease History of OR in 1992. Diabetic peripheral neuropathy History of Jackson's palsy Hyperlipidemia Hypertension Irritable bowel syndrome Melena Peripheral vascular disease Tobacco dependence Type 2 diabetes mellitus UGIB (upper gastrointestinal bleed) Surgical History Surgical History History of appendectomy History of cardiac catheterization (1992) History of lumbar surgery History of vascular surgery (2001) Infrarenal abdominal aortic angioplasty with stent placement. Intertrochanteric fracture of right hip ORIF with troch nail on 05/07/2022 Family History Family History Mother Family history of cardiovascular disease Father Family history of lung cancer Sibling Family history of lung cancer Family history of throat cancer Family history of Hodgkin's lymphoma Social History Social History Social History: Surrogate decision maker: Anum Santiago, daughter. Code status: Do not resuscitate. Smoking packs per day: 0.5 Smoking cigarettes per day: 10.0 Years smoked: 50 Smoking pack-years: 25.00 Smoking status: Current every day smoker Tobacco type: cigarettes Second hand tobacco smoke exposure: No Alcohol intake: current Drinks per week: 1 Substance use: never Substance use type: does not use Additional living arrangements comments: The patient lives in [place]. Jacquelin villar
--- NOTE | 2022-12-02 19:58 | PC.NURSE ---
attempted x2 for iv access, unsuccessful, erp made aware
[2022-12-02 20:19] LABS: NT Pro B Type Natriuretic Pept 3040 pg/mL (19.9-100)
[2022-12-02 20:35] LABS: Appearance Urine Clear (Clear); Bilirubin Urine Negative (Negative); Blood Urine Negative (Negative); Color Urine Yellow (Yellow); Glucose Urine UA 3+ mg/dL (Negative); Ketones Urine Negative (Negative); Leukocyte Esterase Ur 1+ LEU/UL (Negative); Nitrate Urine Negative (Negative); Protein Urine Trace mg/dL (Negative); Specific Grav Ur 1.015 (1.001-1.035); Urobilinogen Urine 0.2 mg/dL (<2.0)
[2022-12-02 20:38] LABS: Bacteria Urine Trace /hpf; Mucus Urine Rare /lpf; Squamous Epithelial Cell Urine Few /hpf (Few); WBC Urine 21-30 /hpf
[2022-12-02 20:39] LABS: Add Urine Microscopic? YES
[2022-12-02] MEDS: SODIUM CHLORIDE 0.9% IV 1,000 ML 999 ML IV CONT (20:51)
--- NOTE | 2022-12-02 21:47 | PM.IMHP ---
H&P: HPI History of Present Illness Date/Time: 12/02/22 21:47 Chief Complaint: Generalized weakness Narrative: This is an 82-year-old female with past medical history significant for metastatic colon CA undergoing chemotherapy, patient had her last chemotherapy treatment about a week ago presents to the emergency room due to poor per orally intake, generalized weakness, shortness of bread. Most of the history has been obtained from daughters who are at bedside. Patient is very ill. Preliminary workup was significant for urinalysis with numerous WBCs present. Patient has been admitted for further evaluation management and treatment. CTA of the chest FINDINGS:? Lung parenchyma and airways: Scattered tree-in-bud and groundglass opacities most pronounced in the right lower lung, with peripheral and basilar fibrosis. Pleura: Unremarkable. Thoracic inlet, axillae and chest wall: Right IJ central line terminating at the cavoatrial junction. Thoracic aorta: Normal. Mediastinum: Normal. Heart and pericardium: Normal. Coronary artery calcifications: . Upper abdomen: No significant finding. Bones: No acute osseous finding. Pulmonary arteries: Study quality: Adequate. No pulmonary emboli detected. IMPRESSION: No CT evidence of acute pulmonary embolus. Pulmonary opacities may represent atypical infection and/or respiratory bronchiolitis, overlying changes of UIP. Review of Systems Review of Systems: ROS unobtainable: Yes unobtainable due to medical condition (Obtundation) [facility] Past Medical History Medical History Acute on chronic blood loss anemia Chronic obstructive pulmonary disease Colon cancer Colon cancer metastasized to liver Coronary artery disease History of [place] in 1992. Diabetic peripheral neuropathy History of Jackson's palsy Hyperlipidemia Hypertension Irritable bowel syndrome Melena Peripheral vascular disease Tobacco dependence Type 2 diabetes mellitus UGIB (upper gastrointestinal bleed) Surgical History Surgical History History of appendectomy History of cardiac catheterization (1992) History of lumbar surgery History of vascular surgery (2001) Infrarenal abdominal aortic angioplasty with stent placement. Intertrochanteric fracture of right hip ORIF with troch nail on 05/07/2022 Family History Family History Mother Family history of cardiovascular disease Father Family history of lung cancer Sibling Family history of lung cancer Family history of throat cancer Family history of Hodgkin's lymphoma Social History Social History Social History: Surrogate decision maker: Anum Santiago, daughter. Code status: Do not resuscitate. Smoking packs per day: 0.5 Smoking cigarettes per day: 10.0 Years smoked: 50 Smoking pack-years: 25.00 Smoking status: Light tobacco smoker Tobacco type: cigarettes Second hand tobacco smoke exposure: No Alcohol intake: never Drinks per week: 1 Substance use: never Substance use type: does not use Lack of Transportation: No Lack of Food: Never True Current Housing: I Have Housing Concerned About Future Housing: No Difficulty Paying Gas/Electric Bills: No Difficulty Paying for Meds: No Currently Unemployed: No Education: High School Diploma/GED Difficulty w/ Childcare or Family Care: No Additional living arrangements comments: The patient lives in [place]. I believe her granddaughter lives with her. Additional occupation/education comments: Retired. Gender identity (if verbalized by the patient): Female Spiritual care concerns: No Meds Home Medications and Allergies Home Medications Medication Instructions Recorded Confirmed Type atorvastatin 20 mg tablet 20 mg PO DA
[2022-12-02] MEDS: ALBUTEROL SULFATE NEB 2.5 MG/3 ML INH 5 MG INHALATION (22:25)
--- NOTE | 2022-12-02 23:09 | ADMGEN ---
This patient, Curt Mcgregor, was admitted to Medical Room 252-01. Patient/family oriented to hospital policies and general routines including ID bracelet, bed and alarms, visiting hours, pain management, procedures, bathroom and other care routines, personal items, smoking policy, room service/diet, and visiting hours. Information on how to activate the Rapid Response Team has been discussed. Patient/Family are encouraged to report perceived risks to care and to ask questions if they do not understand what they are told or what they should do.
[2022-12-02 23:44] LABS: Glucose Point of Care 452 mg/dl (65-105)
[2022-12-03] VITALS (16 sets, daily range): BP systolic 98–121; BP diastolic 41–64; PULSE 69–117; RESP 15–18; TEMP 36.4–36.9; O2SAT 95–100; BMI 15.1
[2022-12-03] MEDS: SODIUM CHLORIDE 0.9% IV 1,000 ML 999 ML IV CONT (00:48)
[2022-12-03] MEDS: FLUCONAZOLE 400 MG/NACL 200 ML 400 MG/200 ML BAG 100 MG IVPB (00:48)
[2022-12-03 08:38] LABS: Glucose Point of Care 358 mg/dl (65-105)
[2022-12-03] MEDS: INSULIN GLARGINE (*BKC) 100 UNITS/ML 20 UNITS SUB-Q (08:58)
[2022-12-03] MEDS: INSULIN ASPART (*BKC) 100 UNITS/ML SUB-Q ×2 (08:58→12:37)
[2022-12-03] MEDS: NYSTATIN 100,000 UNITS/ML SUSP 5 ML ORAL.SUSP PO ×4 (09:08→21:11)
[2022-12-03] MEDS: ATORVASTATIN 20 MG TABLET PO (09:10)
[2022-12-03] MEDS: ASPIRIN 81 MG ENTERIC TABLET PO (09:10)
[2022-12-03] MEDS: DULoxetine HCL 60 MG CAPSULE.DR PO (09:10)
[2022-12-03] MEDS: FERROUS SULFATE 324 MG TABLET PO (09:10)
[2022-12-03] MEDS: METOPROLOL SUCCINATE EXT REL 25 MG TABCR PO (09:10)
[2022-12-03] MEDS: allopurinoL 100 MG TABLET PO ×2 (09:10→17:09)
[2022-12-03] MEDS: PANTOPRAZOLE 40 MG TABLET PO ×2 (09:10→17:09)
[2022-12-03] MEDS: LOSARTAN POTASSIUM 50 MG TABLET PO (09:10)
[2022-12-03] MEDS: calcitrioL 0.25 MCG CAPSULE PO (09:10)
[2022-12-03] MEDS: SODIUM CHLORIDE 0.9% IV 1,000 ML 75 ML IV CONT ×2 (09:22→23:00)
[2022-12-03 12:54] LABS: Glucose Point of Care 222 mg/dl (65-105)
[2022-12-03 13:05] LABS: Hemoglobin 8.1 g/dL (12.0-15.0); Mean Corpuscular HGB Conc 32.4 g/dl (32-36); Mean Corpuscular Hemoglobin 30.1 pg (26-34); Mean Corpuscular Volume 92.9 fl (80-100); Mean Platelet Volume 9.7 fl (7.4-10.4); Platelet Count Result 184 k/mm3 (150-375); Red Blood Count 2.69 M/mm3 (4.2-5.4); Red Cell Distribution Width 17.8 % (11.5-14.5); White Blood Count 7.6 K/mm3 (4.5-10.0)
[2022-12-03 13:19] LABS: Anion Gap 7 mmol/L (8-16); Blood Urea Nitrogen 15 mg/dL (7-17); Calcium 8.6 mg/dL (8.4-10.2); Carbon Dioxide 23 mmol/L (22-30); Chloride 98 mmol/L (98-107); Estimated CRCL calculation 45 ml/min; Estimated Glomerular Filt Rate > 60; Glucose 216 mg/dL (65-110); Magnesium 1.5 mg/dL (1.6-2.3); Potassium 3.7 mmol/L (3.4-5.0); Sodium 128 mmol/L (137-145)
--- NOTE | 2022-12-03 13:48 | PM.IMPN ---
Progress Note: A&P Assessment and Plan (1) Acute respiratory failure with hypoxia: Code(s): J96.01 - Acute respiratory failure with hypoxia Status: Acute Assessment and Plan: On supplemental oxygen by nasal cannula 12/03/2022 interval history: Patient continued to complains shortness of breath most likely secondary underlining COPD and now has pneumonia and being treated with azithromycin, vanco and Cefepime, will do a nasal swab to rule out MRSA, CT scan of the chest did not show pulmonary emboli but does show underlining COPD will start the patient on bronchodilator, upon arrival patient is also hyponatremic most likely secondary to dehydration will gently hydrate the patient and monitor, patient also appears malnourished, due to poor p.o. intake complains of difficulty with chewing and pain, will give patient Magic mouth wash, will consult dietitian further recommendation, will encourage will have a PT OT evaluate the patient, and further recommendation to follow. patient daughters are present in the room. (2) Pneumonia: Code(s): J18.9 - Pneumonia, unspecified organism Status: Acute Assessment and Plan: Started on cefepime vanc and Zithromax Cultures in progress (3) Colon cancer metastasized to liver: Code(s): C18.9 - Malignant neoplasm of colon, unspecified; C78.7 - Secondary malignant neoplasm of liver and intrahepatic bile duct Status: Acute Assessment and Plan: Undergoing chemotherapy (4) CHF (congestive heart failure): Code(s): I50.9 - Heart failure, unspecified Status: Acute Assessment and Plan: Elevated brain natriuretic peptide Patient appears euvolemic on physical exam Daily weight Intake and output daily Will do an echocardiogram (5) Diabetes: Code(s): E11.9 - Type 2 diabetes mellitus without complications Status: Acute Assessment and Plan: Liberalize diet as patient with high catabolic stage (6) Chronic obstructive pulmonary disease: Code(s): J44.9 - Chronic obstructive pulmonary disease, unspecified Status: Acute Assessment and Plan: Breathing treatments (7) Tobacco dependence: Code(s): F17.200 - Nicotine dependence, unspecified, uncomplicated Status: Acute Assessment and Plan: Nicotine patch as needed (8) Hyponatremia: Code(s): E87.1 - Hypo-osmolality and hyponatremia Status: Acute Assessment and Plan: 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 in poor per orally intake Receiving IV fluids gently (9) Thrush, oral: Code(s): B37.0 - Candidal stomatitis Status: Acute Assessment and Plan: Nystatin switch and swallow Plus Diflucan Subjective Date/time seen: 12/03/22 13:48 Generalized weakness HPI-Narrative: This is an 82-year-old female with past medical history significant for metastatic colon CA undergoing chemotherapy, patient had her last chemotherapy treatment about a week ago presents to the emergency room due to poor per orally intake, generalized weakness, shortness of bread.? Most of the history has been obtained from daughters who are at bedside.? Patient is very ill.? Preliminary workup was significant for urinalysis with numerous WBCs present.? Patient has been admitted for further evaluation management and treatment. 12/03/2022 interval history: Patient continued to complains shortness of breath most likely secondary underlining COPD and now has pneumonia and being treated with azithromycin, vanco and Cefepime, will do a nasal swab to rule out MRSA, CT scan of the chest did not show pulmonary emboli but does show underlining COPD will start the patient on bronchodilator, upon arrival patient is also hyponatremic most likely secondary to dehydration will gently hydrate the patient and monitor, patient also appears malnourished, due to poor p.o. intake complains of difficulty with chewing and pain, will give patient Magic mouth wash, will con
[2022-12-03] MEDS: CENTRAL LINE FLUSH 10 ML IV PUSH ×2 (14:34→21:13)
[2022-12-03 17:04] LABS: Glucose Point of Care 214 mg/dl (65-105)
[2022-12-03] MEDS: MAGNES & ALUM HYD/SIMETH/DIPHENHYD/LIDOCAINE 119 ML MOUTHWASH BY MOUTH ×2 (17:09→21:05)
[2022-12-03] MEDS: ALBUTEROL SULFATE NEB 2.5 MG/3 ML INH INHALATION ×3 (17:13→23:43)
[2022-12-03] MEDS: FLUCONAZOLE 200 MG/NACL 100 ML 200 MG/100 ML BAG 100 MG IVPB (21:04)
[2022-12-03 22:19] LABS: Glucose Point of Care 285 mg/dl (65-105)
[2022-12-04] VITALS (17 sets, daily range): BP systolic 104–111; BP diastolic 42–49; PULSE 70–105; RESP 15–18; TEMP 36.3–36.8; O2SAT 98–100
[2022-12-04] MEDS: MAGNES & ALUM HYD/SIMETH/DIPHENHYD/LIDOCAINE 119 ML MOUTHWASH BY MOUTH ×6 (02:03→20:53)
[2022-12-04] MEDS: ALBUTEROL SULFATE NEB 2.5 MG/3 ML INH INHALATION ×4 (04:08→20:00)
[2022-12-04] MEDS: CENTRAL LINE FLUSH 10 ML IV PUSH ×3 (05:28→20:53)
[2022-12-04 06:06] LABS: Hematocrit 22.5 % (37.0-47.0); Hemoglobin 7.2 g/dL (12.0-15.0); Mean Corpuscular Hemoglobin 30.6 pg (26-34); Mean Corpuscular Volume 95.7 fl (80-100); Mean Platelet Volume 10.1 fl (7.4-10.4); Platelet Count Result 140 k/mm3 (150-375); Red Blood Count 2.35 M/mm3 (4.2-5.4); Red Cell Distribution Width 18.1 % (11.5-14.5); White Blood Count 4.5 K/mm3 (4.5-10.0)
[2022-12-04 06:22] LABS: Anion Gap 2 mmol/L (8-16); Blood Urea Nitrogen 10 mg/dL (7-17); Calcium 7.7 mg/dL (8.4-10.2); Carbon Dioxide 27 mmol/L (22-30); Chloride 100 mmol/L (98-107); Estimated CRCL calculation 53 ml/min; Estimated Glomerular Filt Rate > 60; Glucose 281 mg/dL (65-110); Magnesium 1.5 mg/dL (1.6-2.3); Potassium 3.3 mmol/L (3.4-5.0); Sodium 129 mmol/L (137-145)
[2022-12-04] MEDS: INSULIN ASPART (*BKC) 100 UNITS/ML SUB-Q ×3 (08:53→17:29)
[2022-12-04] MEDS: ASPIRIN 81 MG ENTERIC TABLET PO (08:54)
[2022-12-04] MEDS: ATORVASTATIN 20 MG TABLET PO (08:54)
[2022-12-04] MEDS: DULoxetine HCL 60 MG CAPSULE.DR PO (08:54)
[2022-12-04] MEDS: allopurinoL 100 MG TABLET PO ×2 (08:54→16:17)
[2022-12-04] MEDS: calcitrioL 0.25 MCG CAPSULE PO (08:54)
[2022-12-04] MEDS: FERROUS SULFATE 324 MG TABLET PO (08:55)
[2022-12-04] MEDS: LOSARTAN POTASSIUM 50 MG TABLET PO (08:55)
[2022-12-04] MEDS: NYSTATIN 100,000 UNITS/ML SUSP 5 ML ORAL.SUSP PO ×4 (08:55→20:53)
[2022-12-04] MEDS: METOPROLOL SUCCINATE EXT REL 25 MG TABCR PO (08:55)
[2022-12-04] MEDS: PANTOPRAZOLE 40 MG TABLET PO ×2 (08:55→16:17)
[2022-12-04 08:58] LABS: Glucose Point of Care 264 mg/dl (65-105)
--- NOTE | 2022-12-04 09:23 | P.CDI_ITS ---
CDI Query Clarified Diagnosis Clarified Diagnosis: BMI 15.1 Nutritional Diagnostic Statement Severe Malnutrition related to inadequate protein energy intake with increased protein energy needs in the setting of chronic disease - chemo treatment for metastatic colon cancer- as evidence by minimal PO intake for greater than 1 month , significant weight loss- 10% x 2 weeks , and noted subcutaneous fat and muscle wasting in NFPE Please refer to the comprehensive Nutrition assessment for more information. Please clarify severity of protein calorie malnutrition if known: * Mild * Moderate * Severe * Other / Unspecified <Cass Schwartz RN - Last Filed: 12/04/22 09:29> Provider Comments Severe malnutrition secondary to poor p.o. intake insufficient protein, and calorie intake. Patient with history of colon cancer on chemotherapy. <Guillermo Winston MD - Last Filed: 12/23/22 15:44>
[2022-12-04] MEDS: MAGNESIUM SULF 2 GM/WATER 50ML 2 GM/50 ML BAG IVPB (10:23)
[2022-12-04] MEDS: POTASSIUM CHLORIDE 20 MEQ PACKET (FOR LIQUID) 40 MEQ PO (10:23)
[2022-12-04 12:24] LABS: Glucose Point of Care 209 mg/dl (65-105)
--- NOTE | 2022-12-04 13:45 | PM.IMPN ---
Progress Note: A&P Assessment and Plan (1) Acute respiratory failure with hypoxia: Code(s): J96.01 - Acute respiratory failure with hypoxia Status: Acute Assessment and Plan: On supplemental oxygen by nasal cannula 12/04/2022 interval history: Patient continued to complains shortness of breath most likely secondary underlining COPD and now has pneumonia and being treated with azithromycin, vanco and Cefepime, will do a nasal swab to rule out MRSA, CT scan of the chest did not show pulmonary emboli but does show underlining COPD will start the patient on bronchodilator, and concerning for pneumonia and being treated cefepime, azithromycin and vancomycin, patient urine culture is growing Pseudomonas, will continue the abx, upon arrival patient was alsofound to have hyponatremic most likely secondary to dehydration gently hydrate the patient sodium is rising and will monitor, patient also appears malnourished, due to poor p.o. intake complains of difficulty with chewing and pain, has thrush, will give patient Magic mouth wash nystatin, will diflucan, will consult dietitian further recommendation, will encourage patient to incease oral intake, will have a PT OT evaluate the patient, and further recommendation to follow. patient daughter is present in the room. (2) Pneumonia: Code(s): J18.9 - Pneumonia, unspecified organism Status: Acute Assessment and Plan: Started on cefepime vanc and Zithromax Cultures in progress (3) Colon cancer metastasized to liver: Code(s): C18.9 - Malignant neoplasm of colon, unspecified; C78.7 - Secondary malignant neoplasm of liver and intrahepatic bile duct Status: Acute Assessment and Plan: Undergoing chemotherapy (4) CHF (congestive heart failure): Code(s): I50.9 - Heart failure, unspecified Status: Acute Assessment and Plan: Elevated brain natriuretic peptide Patient appears euvolemic on physical exam Daily weight Intake and output daily Will do an echocardiogram (5) Diabetes: Code(s): E11.9 - Type 2 diabetes mellitus without complications Status: Acute Assessment and Plan: Liberalize diet as patient with high catabolic stage (6) Chronic obstructive pulmonary disease: Code(s): J44.9 - Chronic obstructive pulmonary disease, unspecified Status: Acute Assessment and Plan: Breathing treatments (7) Tobacco dependence: Code(s): F17.200 - Nicotine dependence, unspecified, uncomplicated Status: Acute Assessment and Plan: Nicotine patch as needed (8) Hyponatremia: Code(s): E87.1 - Hypo-osmolality and hyponatremia Status: Acute Assessment and Plan: 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 in poor per orally intake Receiving IV fluids gently (9) Thrush, oral: Code(s): B37.0 - Candidal stomatitis Status: Acute Assessment and Plan: Nystatin switch and swallow Plus Diflucan Subjective Date/time seen: 12/04/22 13:45 12/04/2022 interval history: Patient continued to complains shortness of breath most likely secondary underlining COPD and now has pneumonia and being treated with azithromycin, vanco and Cefepime, will do a nasal swab to rule out MRSA, CT scan of the chest did not show pulmonary emboli but does show underlining COPD will start the patient on bronchodilator, and concerning for pneumonia and being treated cefepime, azithromycin and vancomycin, patient urine culture is growing Pseudomonas, will continue the abx, upon arrival patient was alsofound to have hyponatremic most likely secondary to dehydration gently hydrate the patient sodium is rising and will monitor, patient also appears malnourished, due to poor p.o. intake complains of difficulty with chewing and pain, has thrush, will give patient Magic mouth wash nystatin, will diflucan, will consult dietitian further recommendation, will encourage patient to incease oral intake, wi
[2022-12-04] MEDS: SODIUM CHLORIDE 0.9% IV 1,000 ML 75 ML IV CONT (16:12)
[2022-12-04 17:22] LABS: Glucose Point of Care 291 mg/dl (65-105)
[2022-12-04] MEDS: FLUCONAZOLE 200 MG/NACL 100 ML 200 MG/100 ML BAG 100 MG IVPB (20:52)
[2022-12-04 21:48] LABS: Glucose Point of Care 159 mg/dl (65-105)
[2022-12-05] VITALS (17 sets, daily range): BP systolic 100–125; BP diastolic 43–59; PULSE 75–108; RESP 16–18; TEMP 36.2–36.6; O2SAT 97–100
--- NOTE | 2022-12-05 05:18 | PCRCNOTE ---
Patient refused 0200 updraft treatment due to wanting sleep. She states she does not have trouble breathing throughout the night.
[2022-12-05] MEDS: MAGNES & ALUM HYD/SIMETH/DIPHENHYD/LIDOCAINE 119 ML MOUTHWASH BY MOUTH ×5 (06:25→22:23)
[2022-12-05] MEDS: CENTRAL LINE FLUSH 10 ML IV PUSH ×3 (06:26→22:24)
[2022-12-05] MEDS: SODIUM CHLORIDE 0.9% IV 1,000 ML 75 ML IV CONT ×2 (06:26→23:48)
[2022-12-05 06:42] LABS: Hematocrit 22.5 % (37.0-47.0); Hemoglobin 7.5 g/dL (12.0-15.0); Mean Corpuscular HGB Conc 33.3 g/dl (32-36); Mean Corpuscular Hemoglobin 31.3 pg (26-34); Mean Corpuscular Volume 93.8 fl (80-100); Mean Platelet Volume 10.6 fl (7.4-10.4); Platelet Count Result 144 k/mm3 (150-375); Red Cell Distribution Width 17.9 % (11.5-14.5); White Blood Count 5.2 K/mm3 (4.5-10.0)
[2022-12-05 06:55] LABS: Anion Gap 1 mmol/L (8-16); Blood Urea Nitrogen 7 mg/dL (7-17); Calcium 7.9 mg/dL (8.4-10.2); Carbon Dioxide 28 mmol/L (22-30); Chloride 99 mmol/L (98-107); Estimated CRCL calculation 53 ml/min; Estimated Glomerular Filt Rate > 60; Glucose 116 mg/dL (65-110); Magnesium 1.6 mg/dL (1.6-2.3); Potassium 3.8 mmol/L (3.4-5.0); Sodium 128 mmol/L (137-145)
[2022-12-05] MEDS: ALBUTEROL SULFATE NEB 2.5 MG/3 ML INH INHALATION ×3 (07:50→21:36)
[2022-12-05 08:56] LABS: Glucose Point of Care 150 mg/dl (65-105)
[2022-12-05] MEDS: calcitrioL 0.25 MCG CAPSULE PO (09:11)
[2022-12-05] MEDS: DULoxetine HCL 60 MG CAPSULE.DR PO (09:11)
[2022-12-05] MEDS: allopurinoL 100 MG TABLET PO ×2 (09:11→17:24)
[2022-12-05] MEDS: NYSTATIN 100,000 UNITS/ML SUSP 5 ML ORAL.SUSP PO ×4 (09:11→22:23)
[2022-12-05] MEDS: ASPIRIN 81 MG ENTERIC TABLET PO (09:11)
[2022-12-05] MEDS: LOSARTAN POTASSIUM 50 MG TABLET PO (09:11)
[2022-12-05] MEDS: FERROUS SULFATE 324 MG TABLET PO (09:11)
[2022-12-05] MEDS: PANTOPRAZOLE 40 MG TABLET PO ×2 (09:11→17:24)
[2022-12-05] MEDS: ATORVASTATIN 20 MG TABLET PO (09:11)
[2022-12-05] MEDS: MAGNESIUM SULF 1 GM/D5W 100 ML 1 GM/100 ML BAG IVPB (11:23)
--- NOTE | 2022-12-05 12:00 | PM.IMPN ---
Progress Note: A&P Assessment and Plan (1) Acute respiratory failure with hypoxia: Code(s): J96.01 - Acute respiratory failure with hypoxia Status: Acute Assessment and Plan: On supplemental oxygen by nasal cannula 12/05/2022 interval history: Patient continued to complains shortness of breath most likely secondary underlining COPD and now has pneumonia and being treated with azithromycin, vanco and Cefepime, will do a nasal swab to rule out MRSA, CT scan of the chest did not show pulmonary emboli but does show underlining COPD will start the patient on bronchodilator, and concerning for pneumonia and was treated with cefepime, azithromycin and vancomycin, patient urine culture is growing Pseudomonas, blood culture no growth so far, for pseudomona started the patient on Levaquin and stopped other abx, upon arrival patient was also found to have hyponatremic most likely secondary to dehydration gently hydrate the patient sodium is rising and will monitor, patient also appears malnourished, due to poor p.o. intake complains of difficulty with chewing and pain, has thrush, will give patient Magic mouth wash nystatin, and added diflucan, will consult dietitian further recommendation, will encourage patient to increase oral intake, today discuss with patient daughter who is nurse to start Magce to stimulate appetite, she will discuss with her oncologist and will plan, will have a PT OT evaluate the patient, and further recommendation to follow. patient daughter is present in the room. (2) Pneumonia: Code(s): J18.9 - Pneumonia, unspecified organism Status: Acute Assessment and Plan: Started on cefepime vanc and Zithromax Cultures in progress (3) Colon cancer metastasized to liver: Code(s): C18.9 - Malignant neoplasm of colon, unspecified; C78.7 - Secondary malignant neoplasm of liver and intrahepatic bile duct Status: Acute Assessment and Plan: Undergoing chemotherapy (4) CHF (congestive heart failure): Code(s): I50.9 - Heart failure, unspecified Status: Acute Assessment and Plan: Elevated brain natriuretic peptide Patient appears euvolemic on physical exam Daily weight Intake and output daily Will do an echocardiogram (5) Diabetes: Code(s): E11.9 - Type 2 diabetes mellitus without complications Status: Acute Assessment and Plan: Liberalize diet as patient with high catabolic stage (6) Chronic obstructive pulmonary disease: Code(s): J44.9 - Chronic obstructive pulmonary disease, unspecified Status: Acute Assessment and Plan: Breathing treatments (7) Tobacco dependence: Code(s): F17.200 - Nicotine dependence, unspecified, uncomplicated Status: Acute Assessment and Plan: Nicotine patch as needed (8) Hyponatremia: Code(s): E87.1 - Hypo-osmolality and hyponatremia Status: Acute Assessment and Plan: 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 in poor per orally intake Receiving IV fluids gently (9) Thrush, oral: Code(s): B37.0 - Candidal stomatitis Status: Acute Assessment and Plan: Nystatin switch and swallow Plus Diflucan Subjective Date/time seen: 12/05/22 12:00 On supplemental oxygen by nasal cannula 12/05/2022 interval history: Patient continued to complains shortness of breath most likely secondary underlining COPD and now has pneumonia and being treated with azithromycin, vanco and Cefepime, will do a nasal swab to rule out MRSA, CT scan of the chest did not show pulmonary emboli but does show underlining COPD will start the patient on bronchodilator, and concerning for pneumonia and was treated with cefepime, azithromycin and vancomycin, patient urine culture is growing Pseudomonas, blood culture no growth so far, for pseudomona started the patient on Levaquin and stopped other abx, upon arrival patient was also found to have hyponatremic most likely secondary t
[2022-12-05 12:32] LABS: Glucose Point of Care 246 mg/dl (65-105)
[2022-12-05] MEDS: INSULIN ASPART (*BKC) 100 UNITS/ML SUB-Q ×2 (12:45→17:25)
--- NOTE | 2022-12-05 13:27 | PC.NURSE ---
On 12/05/22, the student, [Senthil Cavazos], provided care and completed [facility] documentation on this patient. I have reviewed the student's documentation and agree with the findings.
[2022-12-05 17:26] LABS: Glucose Point of Care 204 mg/dl (65-105)
[2022-12-05] MEDS: FLUCONAZOLE 200 MG/NACL 100 ML 200 MG/100 ML BAG 100 MG IVPB (22:12)
[2022-12-05 22:37] LABS: Glucose Point of Care 103 mg/dl (65-105)
[2022-12-06] VITALS (21 sets, daily range): BP systolic 116–127; BP diastolic 50–64; PULSE 74–135; RESP 14–18; TEMP 36.3–37.1; O2SAT 98–100
[2022-12-06] MEDS: ALBUTEROL SULFATE NEB 2.5 MG/3 ML INH INHALATION ×4 (02:47→20:34)
[2022-12-06] MEDS: MAGNES & ALUM HYD/SIMETH/DIPHENHYD/LIDOCAINE 119 ML MOUTHWASH BY MOUTH ×5 (05:47→21:18)
[2022-12-06] MEDS: CENTRAL LINE FLUSH 10 ML IV PUSH ×2 (05:47→21:18)
[2022-12-06 06:04] LABS: Hematocrit 21.3 % (37.0-47.0); Mean Corpuscular HGB Conc 32.9 g/dl (32-36); Mean Corpuscular Hemoglobin 30.7 pg (26-34); Mean Corpuscular Volume 93.4 fl (80-100); Mean Platelet Volume 10.4 fl (7.4-10.4); Platelet Count Result 148 k/mm3 (150-375); Red Blood Count 2.28 M/mm3 (4.2-5.4); Red Cell Distribution Width 18.2 % (11.5-14.5); White Blood Count 3.8 K/mm3 (4.5-10.0)
[2022-12-06 06:20] LABS: Anion Gap 2 mmol/L (8-16); Blood Urea Nitrogen 6 mg/dL (7-17); Calcium 7.4 mg/dL (8.4-10.2); Carbon Dioxide 26 mmol/L (22-30); Chloride 101 mmol/L (98-107); Estimated CRCL calculation 53 ml/min; Estimated Glomerular Filt Rate > 60; Glucose 164 mg/dL (65-110); Magnesium 1.6 mg/dL (1.6-2.3); Potassium 2.9 mmol/L (3.4-5.0); Sodium 129 mmol/L (137-145)
[2022-12-06 08:18] LABS: Glucose Point of Care 157 mg/dl (65-105)
[2022-12-06] MEDS: DULoxetine HCL 60 MG CAPSULE.DR PO (09:10)
[2022-12-06] MEDS: FERROUS SULFATE 324 MG TABLET PO (09:11)
[2022-12-06] MEDS: METOPROLOL SUCCINATE EXT REL 25 MG TABCR PO (09:11)
[2022-12-06] MEDS: ATORVASTATIN 20 MG TABLET PO (09:11)
[2022-12-06] MEDS: PANTOPRAZOLE 40 MG TABLET PO ×2 (09:11→17:12)
[2022-12-06] MEDS: allopurinoL 100 MG TABLET PO ×2 (09:11→17:12)
[2022-12-06] MEDS: LOSARTAN POTASSIUM 50 MG TABLET PO (09:11)
[2022-12-06] MEDS: ASPIRIN 81 MG ENTERIC TABLET PO (09:11)
[2022-12-06] MEDS: NYSTATIN 100,000 UNITS/ML SUSP 5 ML ORAL.SUSP PO ×3 (09:11→21:17)
[2022-12-06] MEDS: calcitrioL 0.25 MCG CAPSULE PO (09:11)
[2022-12-06 12:46] LABS: Glucose Point of Care 200 mg/dl (65-105)
[2022-12-06] MEDS: SODIUM CHLORIDE 0.9% IV 1,000 ML 75 ML IV CONT (13:20)
[2022-12-06] MEDS: POTASSIUM CHLORIDE 20 MEQ PACKET (FOR LIQUID) 40 MEQ PO (16:30)
[2022-12-06 17:36] LABS: Glucose Point of Care 219 mg/dl (65-105)
[2022-12-06] MEDS: INSULIN ASPART (*BKC) 100 UNITS/ML SUB-Q (18:16)
[2022-12-06] MEDS: FLUCONAZOLE 200 MG/NACL 100 ML 200 MG/100 ML BAG 100 MG IVPB (21:18)
[2022-12-06] MEDS: POTASSIUM CHLORIDE 20 MEQ TABLET 40 MEQ PO (21:18)
[2022-12-06 23:13] LABS: Glucose Point of Care 168 mg/dl (65-105)
[2022-12-07] VITALS (16 sets, daily range): BP systolic 95–137; BP diastolic 49–60; PULSE 66–105; RESP 14–18; TEMP 36.5–36.9; O2SAT 98–100
[2022-12-07] MEDS: ALBUTEROL SULFATE NEB 2.5 MG/3 ML INH INHALATION ×3 (01:42→21:33)
[2022-12-07] MEDS: POTASSIUM CHLORIDE 20 MEQ TABLET 40 MEQ PO (02:15)
[2022-12-07] MEDS: MAGNES & ALUM HYD/SIMETH/DIPHENHYD/LIDOCAINE 119 ML MOUTHWASH BY MOUTH ×5 (02:15→21:06)
[2022-12-07] MEDS: SODIUM CHLORIDE 0.9% IV 1,000 ML 75 ML IV CONT ×2 (06:22→21:11)
[2022-12-07 07:00] LABS: Hematocrit 21.7 % (37.0-47.0); Mean Corpuscular HGB Conc 32.3 g/dl (32-36); Mean Platelet Volume 10.7 fl (7.4-10.4); Platelet Count Result 165 k/mm3 (150-375); Red Blood Count 2.26 M/mm3 (4.2-5.4); Red Cell Distribution Width 18.6 % (11.5-14.5)
[2022-12-07 07:10] LABS: Anion Gap 0 mmol/L (8-16); Blood Urea Nitrogen 6 mg/dL (7-17); Calcium 7.5 mg/dL (8.4-10.2); Carbon Dioxide 27 mmol/L (22-30); Chloride 105 mmol/L (98-107); Estimated CRCL calculation 53 ml/min; Estimated Glomerular Filt Rate > 60; Glucose 162 mg/dL (65-110); Magnesium 1.5 mg/dL (1.6-2.3); Potassium 4.2 mmol/L (3.4-5.0); Sodium 132 mmol/L (137-145)
--- NOTE | 2022-12-07 07:29 | PM.IMPN ---
Progress Note: A&P Assessment and Plan (1) Acute respiratory failure with hypoxia: Code(s): J96.01 - Acute respiratory failure with hypoxia Status: Acute Assessment and Plan: On supplemental oxygen by nasal cannula 12/06/2022 interval history: Patient continued to complains shortness of breath most likely secondary underlining COPD and now has pneumonia and being treated with azithromycin, vanco and Cefepime, will do a nasal swab to rule out MRSA, CT scan of the chest did not show pulmonary emboli but does show underlining COPD will start the patient on bronchodilator, and concerning for pneumonia and was treated with cefepime, azithromycin and vancomycin, patient urine culture is growing Pseudomonas, blood culture no growth so far, for pseudomona started the patient on Levaquin and stopped other abx, upon arrival patient was also found to have hyponatremic most likely secondary to dehydration gently hydrate the patient sodium is rising and will monitor, patient also appears malnourished, due to poor p.o. intake complains of difficulty with chewing and pain, has thrush, will give patient Magic mouth wash nystatin, and added diflucan, will consult dietitian further recommendation, will encourage patient to increase oral intake, on 12/05 discussed with patient daughter who is nurse to start Magce to stimulate appetite, she will discuss with her oncologist and will plan, today patient stats doing better and has a good appetite, no family present, plan is to discharge patient to SNF for rehab, pending insurance authrization, will have a PT OT evaluate the patient, and further recommendation to follow. (2) Pneumonia: Code(s): J18.9 - Pneumonia, unspecified organism Status: Acute Assessment and Plan: Started on cefepime vanc and Zithromax Cultures in progress (3) Colon cancer metastasized to liver: Code(s): C18.9 - Malignant neoplasm of colon, unspecified; C78.7 - Secondary malignant neoplasm of liver and intrahepatic bile duct Status: Acute Assessment and Plan: Undergoing chemotherapy (4) CHF (congestive heart failure): Code(s): I50.9 - Heart failure, unspecified Status: Acute Assessment and Plan: Elevated brain natriuretic peptide Patient appears euvolemic on physical exam Daily weight Intake and output daily Will do an echocardiogram (5) Diabetes: Code(s): E11.9 - Type 2 diabetes mellitus without complications Status: Acute Assessment and Plan: Liberalize diet as patient with high catabolic stage (6) Chronic obstructive pulmonary disease: Code(s): J44.9 - Chronic obstructive pulmonary disease, unspecified Status: Acute Assessment and Plan: Breathing treatments (7) Tobacco dependence: Code(s): F17.200 - Nicotine dependence, unspecified, uncomplicated Status: Acute Assessment and Plan: Nicotine patch as needed (8) Hyponatremia: Code(s): E87.1 - Hypo-osmolality and hyponatremia Status: Acute Assessment and Plan: 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 in poor per orally intake Receiving IV fluids gently (9) Thrush, oral: Code(s): B37.0 - Candidal stomatitis Status: Acute Assessment and Plan: Nystatin switch and swallow Plus Diflucan Subjective Date/time seen: 12/06/22 13:00 12/06/2022 interval history: Patient continued to complains shortness of breath most likely secondary underlining COPD and now has pneumonia and being treated with azithromycin, vanco and Cefepime, will do a nasal swab to rule out MRSA, CT scan of the chest did not show pulmonary emboli but does show underlining COPD will start the patient on bronchodilator, and concerning for pneumonia and was treated with cefepime, azithromycin and vancomycin, patient urine culture is growing Pseudomonas, blood culture no growth so far, for pseudomona started the patient on Levaquin and stopped other abx, upon
[2022-12-07] MEDS: FERROUS SULFATE 324 MG TABLET PO (08:34)
[2022-12-07] MEDS: ATORVASTATIN 20 MG TABLET PO (08:34)
[2022-12-07] MEDS: ASPIRIN 81 MG ENTERIC TABLET PO (08:34)
[2022-12-07] MEDS: NYSTATIN 100,000 UNITS/ML SUSP 5 ML ORAL.SUSP PO ×4 (08:35→21:06)
[2022-12-07] MEDS: DULoxetine HCL 60 MG CAPSULE.DR PO (08:35)
[2022-12-07] MEDS: calcitrioL 0.25 MCG CAPSULE PO (08:35)
[2022-12-07] MEDS: LOSARTAN POTASSIUM 50 MG TABLET PO (08:35)
[2022-12-07] MEDS: METOPROLOL SUCCINATE EXT REL 25 MG TABCR PO (08:35)
[2022-12-07] MEDS: allopurinoL 100 MG TABLET PO ×2 (08:35→17:48)
[2022-12-07] MEDS: PANTOPRAZOLE 40 MG TABLET PO ×2 (08:35→17:48)
[2022-12-07 08:53] LABS: Glucose Point of Care 153 mg/dl (65-105)
[2022-12-07] MEDS: MAGNESIUM OXIDE 400 MG TABLET PO (11:03)
[2022-12-07] MEDS: MAGNESIUM SULF 2 GM/WATER 50ML 2 GM/50 ML BAG IVPB (11:03)
[2022-12-07] MEDS: CYANOCOBALAMIN INJ 1,000 MCG/ML VIAL 1000 MCG SUB-Q (11:04)
[2022-12-07 12:03] LABS: Glucose Point of Care 166 mg/dl (65-105)
--- NOTE | 2022-12-07 12:24 | PCRCNOTE ---
Window of time for administration has passed. See next scheduled administration.
[2022-12-07] MEDS: CENTRAL LINE FLUSH 10 ML IV PUSH ×2 (13:22→21:07)
[2022-12-07 17:22] LABS: Glucose Point of Care 217 mg/dl (65-105)
[2022-12-07] MEDS: INSULIN ASPART (*BKC) 100 UNITS/ML SUB-Q (17:47)
[2022-12-07 20:28] LABS: Glucose Point of Care 95 mg/dl (65-105)
[2022-12-07] MEDS: FLUCONAZOLE 200 MG/NACL 100 ML 200 MG/100 ML BAG 100 MG IVPB (21:06)
[2022-12-08] VITALS (16 sets, daily range): BP systolic 99–117; BP diastolic 50–73; PULSE 76–136; RESP 16–18; TEMP 36.4–36.9; O2SAT 98–100
[2022-12-08] MEDS: MAGNES & ALUM HYD/SIMETH/DIPHENHYD/LIDOCAINE 119 ML MOUTHWASH BY MOUTH ×6 (01:42→20:40)
[2022-12-08] MEDS: CENTRAL LINE FLUSH 10 ML IV PUSH ×3 (05:39→20:42)
[2022-12-08 05:56] LABS: Hematocrit 21.2 % (37.0-47.0); Mean Corpuscular HGB Conc 32.1 g/dl (32-36); Mean Corpuscular Hemoglobin 31.2 pg (26-34); Mean Corpuscular Volume 97.2 fl (80-100); Mean Platelet Volume 10.5 fl (7.4-10.4); Platelet Count Result 185 k/mm3 (150-375); Red Blood Count 2.18 M/mm3 (4.2-5.4); Red Cell Distribution Width 18.6 % (11.5-14.5); White Blood Count 2.4 K/mm3 (4.5-10.0)
[2022-12-08 06:01] LABS: Hemoglobin 6.8 g/dL (12.0-15.0)
[2022-12-08 06:08] LABS: Anion Gap 2 mmol/L (8-16); Blood Urea Nitrogen 5 mg/dL (7-17); Calcium 7.3 mg/dL (8.4-10.2); Carbon Dioxide 26 mmol/L (22-30); Chloride 104 mmol/L (98-107); Estimated CRCL calculation 64 ml/min; Estimated Glomerular Filt Rate > 60; Glucose 161 mg/dL (65-110); Magnesium 1.8 mg/dL (1.6-2.3); Potassium 3.3 mmol/L (3.4-5.0); Sodium 132 mmol/L (137-145)
[2022-12-08] MEDS: NYSTATIN 100,000 UNITS/ML SUSP 5 ML ORAL.SUSP PO ×4 (08:08→20:40)
[2022-12-08] MEDS: calcitrioL 0.25 MCG CAPSULE PO (08:08)
[2022-12-08] MEDS: ATORVASTATIN 20 MG TABLET PO (08:08)
[2022-12-08] MEDS: LOSARTAN POTASSIUM 50 MG TABLET PO (08:08)
[2022-12-08] MEDS: allopurinoL 100 MG TABLET PO ×2 (08:08→17:26)
[2022-12-08] MEDS: ERGOCALCIFEROL 50,000 UNITS CAPSULE 50000 UNITS PO (08:09)
[2022-12-08] MEDS: PANTOPRAZOLE 40 MG TABLET PO ×2 (08:09→17:26)
[2022-12-08] MEDS: FERROUS SULFATE 324 MG TABLET PO (08:09)
[2022-12-08] MEDS: DULoxetine HCL 60 MG CAPSULE.DR PO (08:09)
[2022-12-08] MEDS: METOPROLOL SUCCINATE EXT REL 25 MG TABCR PO (08:09)
[2022-12-08] MEDS: ASPIRIN 81 MG ENTERIC TABLET PO (08:09)
[2022-12-08] MEDS: MAGNESIUM OXIDE 400 MG TABLET PO (08:09)
[2022-12-08 08:20] LABS: Glucose Point of Care 145 mg/dl (65-105)
[2022-12-08] MEDS: ALBUTEROL SULFATE NEB 2.5 MG/3 ML INH INHALATION ×3 (09:03→21:24)
--- NOTE | 2022-12-08 11:36 | PM.IMPN ---
Progress Note: A&P Assessment and Plan (1) Acute respiratory failure with hypoxia: Code(s): J96.01 - Acute respiratory failure with hypoxia Status: Acute Assessment and Plan: On supplemental oxygen by nasal cannula 12/08/2022 interval history: Patient continued to complains shortness of breath most likely secondary underlining COPD and now has pneumonia and being treated with azithromycin, vanco and Cefepime, will do a nasal swab to rule out MRSA, CT scan of the chest did not show pulmonary emboli but does show underlining COPD will start the patient on bronchodilator, and concerning for pneumonia and was treated with cefepime, azithromycin and vancomycin, patient urine culture is growing Pseudomonas, blood culture no growth so far, for pseudomona started the patient on Levaquin and stopped other abx, upon arrival patient was also found to have hyponatremic most likely secondary to dehydration gently hydrate the patient sodium is rising and will monitor, patient also appears malnourished, due to poor p.o. intake complains of difficulty with chewing and pain, has thrush, will give patient Magic mouth wash nystatin, and added diflucan, will consult dietitian further recommendation, will encourage patient to increase oral intake, on 12/05 discussed with patient daughter who is nurse to start Magce to stimulate appetite, she will discuss with her oncologist and will plan, today patient stats doing better and has a good appetite, patient hgb is dropped to 6.8 today patient denies any bleeding, most likley hemodilution for IVF, will stop IVF, will monitor, no family present, plan is to discharge patient to SNF for rehab, pending insurance authorization, will have a PT OT evaluate the patient, and further recommendation to follow. (2) Pneumonia: Code(s): J18.9 - Pneumonia, unspecified organism Status: Acute Assessment and Plan: Started on cefepime vanc and Zithromax Cultures in progress (3) Colon cancer metastasized to liver: Code(s): C18.9 - Malignant neoplasm of colon, unspecified; C78.7 - Secondary malignant neoplasm of liver and intrahepatic bile duct Status: Acute Assessment and Plan: Undergoing chemotherapy (4) CHF (congestive heart failure): Code(s): I50.9 - Heart failure, unspecified Status: Acute Assessment and Plan: Elevated brain natriuretic peptide Patient appears euvolemic on physical exam Daily weight Intake and output daily Will do an echocardiogram (5) Diabetes: Code(s): E11.9 - Type 2 diabetes mellitus without complications Status: Acute Assessment and Plan: Liberalize diet as patient with high catabolic stage (6) Chronic obstructive pulmonary disease: Code(s): J44.9 - Chronic obstructive pulmonary disease, unspecified Status: Acute Assessment and Plan: Breathing treatments (7) Tobacco dependence: Code(s): F17.200 - Nicotine dependence, unspecified, uncomplicated Status: Acute Assessment and Plan: Nicotine patch as needed (8) Hyponatremia: Code(s): E87.1 - Hypo-osmolality and hyponatremia Status: Acute Assessment and Plan: 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 in poor per orally intake Receiving IV fluids gently (9) Thrush, oral: Code(s): B37.0 - Candidal stomatitis Status: Acute Assessment and Plan: Nystatin switch and swallow Plus Diflucan Subjective Date/time seen: 12/08/22 11:36 12/08/2022 interval history: Patient continued to complains shortness of breath most likely secondary underlining COPD and now has pneumonia and being treated with azithromycin, vanco and Cefepime, will do a nasal swab to rule out MRSA, CT scan of the chest did not show pulmonary emboli but does show underlining COPD will start the patient on bronchodilator, and concerning for pneumonia and was treated with cefepime, azithromycin and vancomycin, patient urine culture
[2022-12-08 12:43] LABS: Glucose Point of Care 238 mg/dl (65-105)
[2022-12-08] MEDS: INSULIN ASPART (*BKC) 100 UNITS/ML SUB-Q (12:50)
[2022-12-08 18:25] LABS: Glucose Point of Care 139 mg/dl (65-105)
[2022-12-08] MEDS: FLUCONAZOLE 200 MG/NACL 100 ML 200 MG/100 ML BAG 100 MG IVPB (20:41)
[2022-12-08 21:43] LABS: Glucose Point of Care 187 mg/dl (65-105)
[2022-12-09] VITALS (11 sets, daily range): BP systolic 120; BP diastolic 55; PULSE 76–126; RESP 16–18; TEMP 36.6; O2SAT 97–100
[2022-12-09] MEDS: MAGNES & ALUM HYD/SIMETH/DIPHENHYD/LIDOCAINE 119 ML MOUTHWASH BY MOUTH ×4 (01:11→12:48)
[2022-12-09] MEDS: ALBUTEROL SULFATE NEB 2.5 MG/3 ML INH INHALATION ×2 (03:21→09:32)
[2022-12-09] MEDS: CENTRAL LINE FLUSH 10 ML IV PUSH (04:05)
[2022-12-09 04:19] LABS: Hematocrit 21.5 % (37.0-47.0); Mean Corpuscular HGB Conc 32.6 g/dl (32-36); Mean Corpuscular Hemoglobin 31.4 pg (26-34); Mean Corpuscular Volume 96.4 fl (80-100); Mean Platelet Volume 10.2 fl (7.4-10.4); Platelet Count Result 199 k/mm3 (150-375); Red Blood Count 2.23 M/mm3 (4.2-5.4); Red Cell Distribution Width 18.7 % (11.5-14.5); White Blood Count 3.1 K/mm3 (4.5-10.0)
[2022-12-09 04:30] LABS: Anion Gap 2 mmol/L (8-16); Blood Urea Nitrogen 6 mg/dL (7-17); Calcium 7.8 mg/dL (8.4-10.2); Carbon Dioxide 28 mmol/L (22-30); Chloride 102 mmol/L (98-107); Estimated CRCL calculation 53 ml/min; Estimated Glomerular Filt Rate > 60; Glucose 152 mg/dL (65-110); Magnesium 1.6 mg/dL (1.6-2.3); Potassium 3.5 mmol/L (3.4-5.0); Sodium 132 mmol/L (137-145)
[2022-12-09 08:35] LABS: Glucose Point of Care 143 mg/dl (65-105)
[2022-12-09] MEDS: allopurinoL 100 MG TABLET PO (08:43)
[2022-12-09] MEDS: PANTOPRAZOLE 40 MG TABLET PO (08:43)
[2022-12-09] MEDS: ASPIRIN 81 MG ENTERIC TABLET PO (08:43)
[2022-12-09] MEDS: FERROUS SULFATE 324 MG TABLET PO (08:44)
[2022-12-09] MEDS: DULoxetine HCL 60 MG CAPSULE.DR PO (08:44)
[2022-12-09] MEDS: MAGNESIUM OXIDE 400 MG TABLET PO (08:44)
[2022-12-09] MEDS: NYSTATIN 100,000 UNITS/ML SUSP 5 ML ORAL.SUSP PO ×2 (08:44→12:48)
[2022-12-09] MEDS: ATORVASTATIN 20 MG TABLET PO (08:44)
[2022-12-09] MEDS: METOPROLOL SUCCINATE EXT REL 25 MG TABCR PO (08:44)
[2022-12-09] MEDS: LOSARTAN POTASSIUM 50 MG TABLET PO (08:44)
[2022-12-09] MEDS: calcitrioL 0.25 MCG CAPSULE PO (08:44)
[2022-12-09 11:48] LABS: Glucose Point of Care 223 mg/dl (65-105)
--- NOTE | 2022-12-09 12:05 | PM.DS ---
DS: Admitting Diagnosis Discharge Date 12/09/2022 Admitting Diagnosis Generalized weakness DS: Discharge Diagnosis Discharge Diagnosis (1) Acute respiratory failure with hypoxia: Code(s): J96.01 - Acute respiratory failure with hypoxia Status: Acute Assessment and Plan: On supplemental oxygen by nasal cannula 12/08/2022 interval history: Patient continued to complains shortness of breath most likely secondary underlining COPD and now has pneumonia and being treated with azithromycin, vanco and Cefepime, will do a nasal swab to rule out MRSA, CT scan of the chest did not show pulmonary emboli but does show underlining COPD will start the patient on bronchodilator, and concerning for pneumonia and was treated with cefepime, azithromycin and vancomycin, patient urine culture is growing Pseudomonas, blood culture no growth so far, for pseudomona started the patient on Levaquin and stopped other abx, upon arrival patient was also found to have hyponatremic most likely secondary to dehydration gently hydrate the patient sodium is rising and will monitor, patient also appears malnourished, due to poor p.o. intake complains of difficulty with chewing and pain, has thrush, will give patient Magic mouth wash nystatin, and added diflucan, will consult dietitian further recommendation, will encourage patient to increase oral intake, on 12/05 discussed with patient daughter who is nurse to start Magce to stimulate appetite, she will discuss with her oncologist and will plan, today patient stats doing better and has a good appetite, patient hgb is dropped to 6.8 today patient denies any bleeding, most likley hemodilution for IVF, will stop IVF, will monitor, no family present, plan is to discharge patient to SNF for rehab, pending insurance authorization, will have a PT OT evaluate the patient, and further recommendation to follow. (2) Pneumonia: Code(s): J18.9 - Pneumonia, unspecified organism Status: Acute Assessment and Plan: Started on cefepime vanc and Zithromax Cultures in progress (3) Colon cancer metastasized to liver: Code(s): C18.9 - Malignant neoplasm of colon, unspecified; C78.7 - Secondary malignant neoplasm of liver and intrahepatic bile duct Status: Acute Assessment and Plan: Undergoing chemotherapy (4) CHF (congestive heart failure): Code(s): I50.9 - Heart failure, unspecified Status: Acute Assessment and Plan: Elevated brain natriuretic peptide Patient appears euvolemic on physical exam Daily weight Intake and output daily Will do an echocardiogram (5) Diabetes: Code(s): E11.9 - Type 2 diabetes mellitus without complications Status: Acute Assessment and Plan: Liberalize diet as patient with high catabolic stage (6) Chronic obstructive pulmonary disease: Code(s): J44.9 - Chronic obstructive pulmonary disease, unspecified Status: Acute Assessment and Plan: Breathing treatments (7) Tobacco dependence: Code(s): F17.200 - Nicotine dependence, unspecified, uncomplicated Status: Acute Assessment and Plan: Nicotine patch as needed (8) Hyponatremia: Code(s): E87.1 - Hypo-osmolality and hyponatremia Status: Acute Assessment and Plan: 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 Most of the history has been obtained fr
[2022-12-09 13:05] LABS: EDCOVIDSCREEN Negative (Negative)
== END 2022-12-09 14:40 | disposition home health service (06) | DRG 194 ==
LOC: ANHED 17:40 → ANH2MED 22:17
PROVIDERS: Emergency Medicine; Admitting Provider Internal Medicine; Emergency Provider Emergency Medicine; PCP Internal Medicine; Visit Provider Family Medicine
DX: J18.9 Pneumonia, unspecified organism (principal); B37.0 Candidal stomatitis; J44.0 Chronic obstructive pulmonary disease with (acute) lower respiratory infection; C18.9 Malignant neoplasm of colon, unspecified; C78.7 Secondary malignant neoplasm of liver and intrahepatic bile duct; E87.1 Hypo-osmolality and hyponatremia; E46 Unspecified protein-calorie malnutrition; Z68.1 Body mass index [BMI] 19.9 or less, adult; J44.9 Chronic obstructive pulmonary disease, unspecified; I11.0 Hypertensive heart disease with heart failure; I50.9 Heart failure, unspecified; F17.210 Nicotine dependence, cigarettes, uncomplicated; E11.42 Type 2 diabetes mellitus with diabetic polyneuropathy; Z66 Do not resuscitate; Z92.21 Personal history of antineoplastic chemotherapy; Z20.822 Contact with and (suspected) exposure to COVID-19; Z80.1 Family history of malignant neoplasm of trachea, bronchus and lung; Z88.0 Allergy status to penicillin; Z88.1 Allergy status to other antibiotic agents
CPT/HCPCS: 36415; 71046; 71275; 80048; 80053; 81001; 82948; 83735; 83880; 85025; 85027; 87040; 87077; 87081; 87086; 87088; 87186; 87426; 87636; 93005; 94640; 94667; 96365; 96375; 97110; 97116; 97161; 97165; 97530; 97535; 99285; A9270; C9803; J0456; J0692; J1450; J1642; J1815; J1956; J3370; J3420; J3475; J7030; Q9967